=== PATIENT | female | born 1940 | race Caucasian/White ===

== ENCOUNTER 2019-07-10 20:51 | Emergency (ER) | payer MEDICARE, SELFPAY ==
--- NOTE | ~2019-07-10 | XR_ITS ---
EXAMINATION: XR wrist LT min 3V DATE: 07/10/2019 21:16 INDICATION: Left wrist pain and swelling TECHNIQUE: Posteroanterior, ulnar deviation, oblique, and lateral views of the left wrist were obtain ed. 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 No frac ture, dislocation, or subluxation is identified. IMPRESSION: 1. No acute osseous abnormality. Reviewed, dictated and finalized at location A.
[2019-07-10 20:53] VITALS: PULSE 80; RESP 16; TEMP 36.6; O2SAT 98
--- NOTE | 2019-07-10 21:04 | ED.UPPEXIN ---
HPI - Extremity Injury (Upper) General Chief Complaint: Extremity Injury, Upper Stated Complaint: left wrist pain Time Seen by Provider: 07/10/19 20:58 Source: patient Mode of arrival: ambulatory Limitations: no limitations History of Present Illness HPI narrative: Patient is a 79-year-old female who presents to the emergency department with complaint of left wrist pain. Patient reports onset of symptoms yesterday morning when she woke up. Patient denies any specific injury that she can think of. She denies doing any strenuous activities or lifting yesterday. Patient locates the pain over the volar surface of the left wrist at the area of the distal ulna with some mild swelling and faint erythematous appearance she describes as bruising. Patient took some aspirin which did help with her symptoms. She denies any other complaints at this time. complaint: injury to: left and wrist Related Data Allergies Allergy/AdvReac Type Severity Reaction Status Date / Time peanut Allergy Unknown Unverified 07/07/18 19:40 tree nut Allergy Unknown Unverified 07/07/18 19:40 Olives Allergy Mild Uncoded 07/07/18 19:40 Pork Allergy Mild Uncoded 07/07/18 19:40 Review of Systems Review of Systems: All systems reviewed & are unremarkable except as noted in HPI and below Musculoskeletal: Musculoskeletal: Reports arthralgias and Reports joint swelling PMFSH Past Medical History Medical History (Updated 07/10/19 @ 22:24 by Ashley Brown MD) Breast cancer Kidney stones Pneumonia Surgical History Surgical History (Updated 07/10/19 @ 21:06 by Ashley Brown MD) History of mastectomy Left Social History Social History (Updated 07/10/19 @ 21:06 by Ashley Brown MD) Smoking status: Former smoker Gender identity (if verbalized by the patient): Female Exam Const: General: cooperative, no acute distress and alert Nutritional Appearance: well nourished Orientation/consciousness: patient oriented x3 Limitations: no limitations Skin: General skin exam: normal color Neuro: General: patient oriented x3 Cognition (Neuro): normal cognition Speech: normal speech Extrem: General: full ROM and no clubbing, cyanosis or edema Left upper extremity: wrist tenderness of the dorsal wrist (Along flexor tendon medially) and swelling of the dorsal wrist Psych: Mental Status: mental status grossly normal Affect: normal affect Attitude: cooperative Course Course Emergency Course: Patient with findings suggestive of flexor tendinitis of the wrist. Advised to continue to use her wrist splint for support. Will prescribe anti-inflammatory. Advised primary care follow-up Vital Signs Vital signs: Vital Signs Temperature 97.8 F 07/10/19 20:53 Pulse Rate 80 07/10/19 20:53 Respiratory Rate 16 07/10/19 20:53 Pulse Oximetry 98 07/10/19 20:53 Temperature 97.8 F 07/10/19 20:53 Pulse Rate 80 07/10/19 20:53 Respiratory Rate 16 07/10/19 20:53 Pulse Oximetry 98 07/10/19 20:53 MDM - Extremity Injury (Upper) Imaging Data Radiologist's impression: ITS Impressions Wrist X-Ray 07/10/19 21:21 IMPRESSION: 1. No acute osseous abnormality. Critical Care Time Critical Care Time Critical Care Time: No Discharge Plan Discharge Clinical Impression: Left wrist tendinitis Patient Disposition: Home, Self-Care Condition: Stable Instructions: Tendinitis (ED) Additional Instructions: Anti-inflammatory as prescribed. Follow-up with primary care physician in the office for further care if not improving. May use your wrist splint for support if needed. Prescriptions: New diclofenac potassium 50 mg tablet 50 mg PO BID PRN (Reason: pain) Qty: 14 RF: 0 Follow-up/Referrals: PHYSICIAN NOT ON STAFF,NONSTAFF [Primary Care Provider] -
== END 2019-07-10 22:34 | disposition home or self-care (01) ==
PROVIDERS: Emergency Provider Emergency Medicine
DX: M77.9 Enthesopathy, unspecified (principal); Z85.3 Personal history of malignant neoplasm of breast; Z87.442 Personal history of urinary calculi; Z90.12 Acquired absence of left breast and nipple; Z87.891 Personal history of nicotine dependence
CPT/HCPCS: 73110; 99283

== ENCOUNTER 2020-03-09 13:30 | Emergency (ER) | payer MEDICARE, SELFPAY ==
[2020-03-09 13:33] VITALS: BP 138/84; PULSE 84; RESP 14; TEMP 36.4; O2SAT 98
[2020-03-09] MEDS: OXYMETAZOLINE HCL 0.05% NAS 15 ML BTL (*BKC) 1 SPRAY (14:02)
[2020-03-09] MEDS: SILVER NITRATE (*SP) STICK 1 EACH (14:02)
--- NOTE | 2020-03-09 14:41 | ED.EPISTAXIS ---
HPI - Epistaxis General Chief complaint: Epistaxis Stated complaint: nosebleed Time Seen by Provider: 03/09/20 13:35 Source: patient and family Mode of arrival: ambulatory Limitations: no limitations History of Present Illness HPI Narrative: Patient is a 80-year-old female who presents with epistaxis from the left nare that began this morning patient was laughing at the time notes that she has had similar occurrences in the past which typically resolve however the bleeding persisted so she came in for evaluation patient denies pain URI symptoms patient does note she has had some occasional low back pain over the last several days denying injury or trauma or illness but does note history of urinary tract infections patient otherwise in no distress and denies anticoagulant use did take aspirin for the last 2 days given her low back discomfort Related Data Allergies Allergy/AdvReac Type Severity Reaction Status Date / Time tree nut Allergy Unknown Hives Unverified 03/09/20 13:43 Pork Allergy Mild Hives Uncoded 03/09/20 13:43 Review of Systems Review of Systems: All systems reviewed & are unremarkable except as noted in HPI and below PMFSH Past Medical History Medical History Breast cancer Kidney stones Pneumonia Surgical History Surgical History History of mastectomy Left Social History Social History Smoking status: Former smoker Gender identity (if verbalized by the patient): Female Exam Narrative: Exam Narrative: GENERAL: Well-appearing, well-nourished, and in no acute distress. HEAD: Normocephalic, atraumatic. EYES: PERRLA and EOMI. ENT: Nares clear, no rhinorrhea. Epistaxis left nare. Mucous membranes moist. CHEST: Clear to auscultation. No respiratory distress. No wheezes rales or rhonchi HEART: Regular rate and rhythm. No murmur heard. Normal peripheral pulses. SKIN: Warm, dry, no rash. NEURO: No focal deficits. Alert and oriented x3. PSYCH: Normal mood and affect. Course Course Emergency Course: Patient evaluated in the emergency department Rhino Rocket was placed with hemostasis achieved patient will follow with ENT and primary care for further evaluation has been given reasons to return vital signs and ABCs intact and stable. Vital Signs Vital signs: Vital Signs Temperature 97.5 F L 03/09/20 13:33 Pulse Rate 84 03/09/20 13:33 Respiratory Rate 14 03/09/20 13:33 Blood Pressure 138/84 03/09/20 13:33 Pulse Oximetry 98 03/09/20 13:33 Temperature 97.5 F L 03/09/20 13:33 Pulse Rate 84 03/09/20 13:33 Respiratory Rate 14 03/09/20 13:33 Blood Pressure 138/84 03/09/20 13:33 Pulse Oximetry 98 03/09/20 13:33 MDM - Epistaxis MDM Narrative Medical decision making narrative: Patient with epistaxis no distress felt appropriate for discharge home will follow with primary care for further evaluation as well as ENT Lab Data Labs: Lab Results 03/09/20 Range/Units 14:34 Urine Color Yellow (Yellow) Urine Appearance Clear (Clear) Urine pH 5.0 (5.0-9.0) Ur Specific [place] 1.017 (1.001-1.035) Urine Protein 2+ H (Negative) mg/dL Urine Glucose (UA) Negative (Negative) mg/dL Urine Ketones Negative (Negative) mg/dL Ur Blood (Man) Negative (Negative) Urine Nitrate Negative (Negative) Urine Bilirubin Negative (Negative) Urine Urobilinogen Negative (<2.0) mg/dL Leukocyte Esterase Rfl 1+ H (Negative) DEE/UL Urine RBC 0-2 (0-2) /hpf Urine WBC 4-6 H /hpf Ur Squamous Epith Cells Occasional (Few) /hpf Hyaline Casts 3-4 H (None) /lpf Discharge Plan Discharge Clinical Impression: Epistaxis Patient Disposition: Home, Self-Care Condition: Stable Instructions: Antibiotic Form, Nosebleed (ED) Additional Instructions: Follow up with your prima
[2020-03-09 14:47] LABS: Add Urine Microscopic? YES; Appearance Urine Clear (Clear); Bilirubin Urine Negative (Negative); Blood Urine Negative (Negative); Color Urine Yellow (Yellow); Glucose Urine UA Negative (Negative); Ketones Urine Negative (Negative); Leukocyte Esterase Ur 1+ LEU/UL (Negative); Nitrate Urine Negative (Negative); Protein Urine 2+ mg/dL (Negative); RBC Urine 0-2 /hpf (0-2); Specific Grav Ur 1.017 (1.001-1.035); Squamous Epithelial Cell Urine Occasional /hpf (Few); Urobilinogen Urine Negative mg/dL (<2.0)
[2020-03-09 15:19] VITALS: BP 132/76; PULSE 80; RESP 18; O2SAT 98
== END 2020-03-09 15:20 | disposition home or self-care (01) ==
PROVIDERS: Emergency Medicine Emergency Medical Services; Emergency Provider Emergency Medicine; PCP Pediatrics
DX: R04.0 Epistaxis (principal); Z85.3 Personal history of malignant neoplasm of breast; Z87.442 Personal history of urinary calculi; Z90.12 Acquired absence of left breast and nipple; Z87.891 Personal history of nicotine dependence; R82.998 Other abnormal findings in urine
CPT/HCPCS: 30901; 81001; 87086; 87088; 99283; A9270

== ENCOUNTER 2021-03-25 11:16 | Emergency (ER) | payer MEDICARE, SELFPAY ==
[2021-03-25] VITALS (8 sets, daily range): BP systolic 157; BP diastolic 84; PULSE 81–97; RESP 14–23; O2SAT 86–95
--- NOTE | ~2021-03-25 | CT_ITS ---
EXAMINATION: CT abdomen pelvis w con DATE: 03/25/2021 12:35 INDICATION: Bowel obstruction TECHNIQUE: Computed tomography (CT) of the abdomen and pelvis was performed with 100 mL Omnipaque-350 intravenous contrast. Automated exposure control and iterative reconstruction technique were employe d. The dose-length product was 430.99 mGy-cm. COMPARISON: 07/07/2018 FINDINGS: Postoperative change of prior left mastectomy with left breast implant. Mild dependent atelectasis in the bilateral lower lobes. Heart size is normal. No pericardial or pleural effusion. Small sliding-t ype hiatal hernia. Liver, gallbladder, spleen, pancreas and bilateral adrenal glands are normal. Bila teral nonobstructing nephrolithiasis with 4 1-2 mm stones in the left kidney and 6 stones in the righ t kidney the largest measuring 5 mm. Small bowel and appendix are normal. No obstruction. There is wa ll thickening along the sigmoid colon and rectum with mild stranding in the adjacent sigmoid mesenter y consistent with a distal colitis. Moderate amount of colonic stool which could be seen with constip ation. A few sigmoid diverticula without focal surrounding inflammatory stranding to suggest divertic ulitis. No significant interval change in a couple mildly prominent but still normal-sized likely conrad ctive lymph nodes along the sigmoid mesentery. Small amount of ascites in the pelvis. Bladder, retrov erted uterus and left adnexa are unremarkable. No significant change in a 2.1 cm right adnexal cyst. Mild lumbar dextrocurvature. Severe lower thoracic and moderate lumbar spondylosis. IMPRESSION: 1. Wall thickening along the sigmoid colon and rectum consistent with the distal colitis which could be infectious, inflammatory or ischemic in etiology or potentially related to constipation and sterco ral colitis. No bowel obstruction. 2. Bilateral nonobstructing nephrolithiasis. 3. Small sliding-type hiatal hernia. Reviewed, dictated and finalized at location A. RESSER IMPRESSION: 1. Wall thickening along the sigmoid colon and rectum consistent with the dista l colitis which could be infectious, inflammatory or ischemic in etiology or po tentially related to constipation and stercoral colitis. No bowel obstruction. 2. Bilateral nonobstructing nephrolithiasis. 3. Small sliding-type hiatal hernia.
--- NOTE | 2021-03-25 11:50 | ED.GENADULT ---
HPI - General Adult General Chief complaint: Abdominal Pain <Carlos Alberto Valdez PA-C - Last Filed: 03/25/21 16:03> Stated complaint: Constipation <Carlos Alberto Valdez PA-C - Last Filed: 03/25/21 16:03> Time Seen by Provider: 03/25/21 11:25 <Carlos Alberot Valdez PA-C - Last Filed: 03/25/21 16:03> Source: patient <ANA Haji Last Filed: 03/25/21 16:03> Mode of arrival: ambulatory <ANA Haji Last Filed: 03/25/21 16:03> Limitations: no limitations <ANA Haji Last Filed: 03/25/21 16:03> History of Present Illness HPI narrative: Patient is a 81-year-old female presented with chief complaint of abdominal discomfort and constipation since Monday. Patient reports she is taking [id number] stool softeners and has only passed small bits of stool. Patient reports she has been able to pass gas. Patient reports this morning she had 3 episodes of vomiting. Along with more persistent abdominal cramping. Patient reports that she has passed very small bits of stool but has not completely emptied. She reports she has chronic intermittent constipation. She states her stool is soft and not hard or feeling stuck in her rectum. She denies fevers, chills, or weakness. <ANA Haji Last Filed: 03/25/21 16:03> Related Data Home medications: Home Medications Medication Instructions Recorded Confirmed atorvastatin 10 mg PO DAILY 03/25/21 metformin 500 mg PO BID 03/25/21 triamterene-hydrochlorothiazid 1 cap PO DAILY 03/25/21 <ANA Haji Last Filed: 03/25/21 16:03> Allergies/adverse reactions: Allergies Allergy/AdvReac Type Severity Reaction Status Date / Time tree nut Allergy Unknown Hives Verified 03/25/21 11:27 Pork Allergy Mild Hives Uncoded 03/09/20 13:43 <ANA Haji Last Filed: 03/25/21 16:03> Review of Systems Review of Systems: CONSTITUTIONAL: Denies fever, chills, or sweats. EYES: Denies visual changes, redness, or discharge. ENT: Denies rhinorrhea, congestion, sore throat, or otalgia. CARDIOVASCULAR: Denies chest pain, palpitations, or edema. RESPIRATORY: Denies cough or dyspnea. GASTROINTESTINAL: Reports abdominal pain, nausea, vomiting, and constipation. GENITOURINARY: Denies dysuria or hematuria. SKIN: Denies rash or itching. MUSCULOSKELETAL: Denies back pain, joint pain, or myalgia. NEUROLOGIC: Denies headache, numbness, dizziness, or weakness. PSYCHIATRIC: Denies anxiety or depression. <Carlos Alberto Valdez PA-C - Last Filed: 03/25/21 16:03> [facility] Past Medical History Medical History: Medical History Breast cancer Kidney stones Pneumonia <Carlos Alberto Valdez PA-C - Last Filed: 03/25/21 16:03> Surgical History Surgical History: Surgical History History of mastectomy Left <Carlos Alberto Valdez PA-C - Last Filed: 03/25/21 16:03> Social History Social History: Social History Smoking status: Former smoker Gender identity (if verbalized by the patient): Female <Carlos Alberto Valdez PA-C - Last Filed: 03/25/21 16:03> Exam Narrative: GENERAL: Well-appearing, well-nourished, and in no acute distress. HEAD: Normocephalic, atraumatic. EYES: PERRLA and EOMI. CHEST: Clear to auscultation. No respiratory distress. No wheezes rales or rhonchi HEART: Regular rate and rhythm. No murmur heard. Normal peripheral pulses. ABDOMEN: Soft, diffusely tender, nondistended, normal active bowel sounds. EXTREMITIES: Normal range of motion. No edema. SKIN: Warm, dry, no rash. NEURO: No focal deficits. Alert and oriented x3. PSYCH: Normal mood and affect. 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 I was available for evaluation
[2021-03-25 11:52] LABS: Basophils Percent Auto 0.3 % (0.2-1.2); Eosinophils Percent Auto 0.2 % (0-4.4); Hematocrit 40.7 % (37.0-47.0); Hemoglobin 14.4 g/dL (12.0-15.0); Immature Granulocyte Absolute 0.08 K/mm3 (0.00-0.031); Immature Granulocyte Percent A 0.5 % (0-0.5); Lymphocytes Absolute Auto 2.45 K/mm3 (0.9-3.2); Lymphocytes Percent Auto 15.4 % (18.3-44.2); Mean Corpuscular HGB Conc 35.4 g/dl (32-36); Mean Corpuscular Hemoglobin 30.6 pg (26-34); Mean Corpuscular Volume 86.6 fl (80-100); Mean Platelet Volume 10.2 fl (7.4-10.4); Monocytes Absolute Auto 0.8 K/mm3 (0.1-0.6); Neutrophils Absolute Auto 12.5 K/mm3 (1.3-6.7); Neutrophils Percent Auto 78.6 % (45.5-73.1); Platelet Count Result 318 k/mm3 (150-375); Red Cell Distribution Width 12.4 % (11.5-14.5); White Blood Count 15.9 K/mm3 (4.5-10.0)
[2021-03-25 12:04] LABS: Alanine Aminotransferase 20 U/L (4-35); Albumin Level 4.6 g/dL (3.5-5.1); Alkaline Phosphatase 118 U/L (38-126); Anion Gap 9 mmol/L (8-16); Aspartate Amino Transferase 30 U/L (14-36); Bilirubin,Total 0.7 mg/dL (0.2-1.3); Blood Urea Nitrogen 15 mg/dL (7-17); Calcium 9.6 mg/dL (8.4-10.2); Carbon Dioxide 25 mmol/L (22-30); Chloride 102 mmol/L (98-107); Estimated CRCL calculation 46 ml/min; Estimated Glomerular Filt Rate > 60; Glucose 180 mg/dL (65-110); Lipase 47 U/L (23-300); Potassium 3.3 mmol/L (3.4-5.0); Sodium 136 mmol/L (137-145)
[2021-03-25] MEDS: MORPHINE SULFATE (*CRX) 2 MG/ML INJ IV PUSH (12:07)
[2021-03-25] MEDS: ONDANSETRON INJ 4 MG/2 ML VIAL IV PUSH (12:07)
[2021-03-25 12:56] LABS: Add Urine Microscopic? YES; Appearance Urine Clear (Clear); Bacteria Urine Trace /hpf; Bilirubin Urine Negative (Negative); Blood Urine 2+ (Negative); Color Urine Yellow (Yellow); Glucose Urine UA Negative (Negative); Ketones Urine Trace mg/dL (Negative); Leukocyte Esterase Ur Negative LEU/UL (Negative); Mucus Urine Rare /lpf; Nitrate Urine Negative (Negative); Protein Urine 3+ mg/dL (Negative); RBC Urine 51-75 /hpf (0-2); Specific Grav Ur 1.018 (1.001-1.035); Squamous Epithelial Cell Urine Rare /hpf (Few); Urobilinogen Urine Negative mg/dL (<2.0); WBC Urine 0-3 /hpf
== END 2021-03-25 15:15 | disposition home or self-care (01) ==
PROVIDERS: Physician Assistant; Emergency Provider Emergency Medicine
DX: K52.9 Noninfective gastroenteritis and colitis, unspecified (principal); K59.00 Constipation, unspecified; Z85.3 Personal history of malignant neoplasm of breast; Z87.442 Personal history of urinary calculi; Z87.01 Personal history of pneumonia (recurrent)
CPT/HCPCS: 36415; 74177; 80053; 81001; 83690; 85025; 96374; 96375; 99284; J2270; J2405; Q9967

== ENCOUNTER 2021-12-20 17:38 | Emergency (ER) | payer MEDICARE, SELFPAY ==
[2021-12-20 17:56] VITALS: BP 150/76; PULSE 97; RESP 18; TEMP 36.8; O2SAT 98
--- NOTE | 2021-12-20 19:04 | PC.NURSE ---
came to desk to report took home dose of pain meds
--- NOTE | 2021-12-20 20:03 | PC.NURSE ---
Came to nurse's desk to announce leaving and will call her doctor
== END 2021-12-20 20:19 | disposition left against medical advice (07) ==
DX: H53.2 Diplopia (principal)
CPT/HCPCS: 99199

== ENCOUNTER 2022-09-19 21:45 | Emergency (ER) | payer MEDICARE, SELFPAY ==
--- NOTE | ~2022-09-19 | XR_ITS ---
Right wrist Technique: PA and lateral views were obtained. Clinical History: Pain Findings: No acute fracture or dislocation is seen. There is mild degenerative change of the STT josselyn culations. Soft tissues are unremarkable. Impression: No fracture or dislocation seen. Mild degenerative change of the STT articulations. Reviewed, dictated and finalized at location . Impression: No fracture or dislocation seen. Mild degenerative change of the STT articulations.
[2022-09-19 21:49] VITALS: BP 165/69; PULSE 81; RESP 14; TEMP 36.9; O2SAT 97
--- NOTE | 2022-09-20 01:02 | ED.GENADULT ---
[facility] - General Adult General Chief complaint: Extremity Injury, Upper Stated complaint: all kinds of aches and pains, hand swelling Time Seen by Provider: 09/20/22 00:32 Source: patient Mode of arrival: ambulatory Limitations: no limitations History of Present Illness HPI narrative: This is an 82-year-old female who presents to the ED with chief complaint of full body pain for the past month. She states she woke up one morning and had pain from head to toe. Denies any injuries. She has been trying to follow-up with her primary on this and they are concerned for fibromyalgia. She states the pain became worse in the right wrist today. She is concerned for blood clot. Denies fevers, chills, numbness, weakness. Related Data Home Medications Medication Instructions Recorded Confirmed atorvastatin 10 mg tablet 10 mg PO DAILY 03/25/21 metformin 500 mg tablet 500 mg PO BID 03/25/21 triamterene 37.5 1 cap PO DAILY 03/25/21 mg-hydrochlorothiazide 25 mg capsule Allergies Allergy/AdvReac Type Severity Reaction Status Date / Time tree nut Allergy Unknown Hives Verified 09/19/22 22:45 Pork Allergy Mild Hives Uncoded 03/09/20 13:43 Review of Systems Review of Systems: All systems as dictated in [facility] Past Medical History Medical History Breast cancer Kidney stones Pneumonia Surgical History Surgical History History of mastectomy Left Social History Social History Smoking status: Former smoker Gender identity (if verbalized by the patient): Female Exam Narrative: GENERAL: Well-appearing, well-nourished, and in no acute distress. HEAD: Normocephalic, atraumatic. EYES: PERRLA and EOMI. ENT: Nares clear, no rhinorrhea or epistaxis. Mucous membranes moist. Oropharynx without tonsillar hypertrophy exudate or other lesions. NECK: Supple. No adenopathy or masses. CHEST: No respiratory distress. Clear to auscultation. No wheezes rales or rhonchi HEART: Regular rate and rhythm. No murmur heard. Normal peripheral pulses. ABDOMEN: Soft, nontender, nondistended, normal active bowel sounds. MSK: Generalized tenderness throughout all extremities. No bruising or deformity. The right upper extremity does not exhibit any edema or swelling. No dilated veins. Moderately increased tenderness at the right wrist. SKIN: Warm, dry, no rash. NEURO: Alert and oriented x3. No focal deficits. PSYCH: Normal mood and affect. Course Vital Signs Vital signs: Vital Signs Temperature 98.4 F 09/19/22 21:49 Pulse Rate 81 09/19/22 21:49 Respiratory Rate 14 09/19/22 21:49 Blood Pressure 165/69 H 09/19/22 21:49 Pulse Oximetry 97 09/19/22 21:49 Oxygen Delivery Room Air 09/19/22 21:49 Temperature 98.1 F 09/20/22 01:55 Pulse Rate 73 09/20/22 01:55 Respiratory Rate 15 09/20/22 01:55 Blood Pressure 138/65 09/20/22 01:55 Pulse Oximetry 95 09/20/22 01:55 Oxygen Delivery Room Air 09/19/22 21:49 Medical Decision Making [facility] Narrative Medical decision making narrative: This is an 82-year-old female who presents to the ED with chief complaint of full body pain for the past month. Pain seems to be worse in the right wrist today and she is. Vitals are normal. Exam is benign. I have very little concern for any blood clot of the upper extremity. Right wrist x-ray does show degeneration but no other acute osseous findings. Blood work is unremarkable. CK normal. She will be discharged stable condition. Medrol Dosepak for inflammation given. She understands and is agreeable with plan for discharge and follow-up with her PCP. Return precautions given and supportive measures discussed. Vital Signs Vital Signs: Vital Signs Temperature 98.4 F 09/19/22 21:49 Pulse Rate 81 09/19/22 21:49 Respiratory Rate
[2022-09-20 01:17] LABS: Basophils Percent Auto 0.3 % (0.2-1.2); Eosinophils Absolute Auto 0.2 K/mm3 (0-0.3); Eosinophils Percent Auto 1.6 % (0-4.4); Hematocrit 35.6 % (37.0-47.0); Hemoglobin 11.9 g/dL (12.0-15.0); Immature Granulocyte Absolute 0.02 K/mm3 (0.00-0.031); Immature Granulocyte Percent A 0.2 % (0-0.5); Lymphocytes Absolute Auto 3.46 K/mm3 (0.9-3.2); Lymphocytes Percent Auto 34.3 % (18.3-44.2); Mean Corpuscular HGB Conc 33.4 g/dl (32-36); Mean Corpuscular Hemoglobin 30.1 pg (26-34); Mean Corpuscular Volume 90.1 fl (80-100); Mean Platelet Volume 9.6 fl (7.4-10.4); Monocytes Absolute Auto 0.7 K/mm3 (0.1-0.6); Monocytes Percent Auto 7.3 % (2.6-8.5); Neutrophils Absolute Auto 5.7 K/mm3 (1.3-6.7); Neutrophils Percent Auto 56.3 % (45.5-73.1); Platelet Count Result 269 k/mm3 (150-375); Red Blood Count 3.95 M/mm3 (4.2-5.4); White Blood Count 10.1 K/mm3 (4.5-10.0)
[2022-09-20] MEDS: predniSONE 20 MG TABLET 40 MG PO (01:25)
[2022-09-20 01:28] LABS: Alanine Aminotransferase 21 U/L (6-35); Albumin Level 3.8 g/dL (3.5-5.1); Alkaline Phosphatase 97 U/L (38-126); Anion Gap 2 mmol/L (8-16); Aspartate Amino Transferase 30 U/L (14-36); Bilirubin,Total 0.3 mg/dL (0.2-1.3); Blood Urea Nitrogen 18 mg/dL (7-17); Calcium 9.1 mg/dL (8.4-10.2); Carbon Dioxide 30 mmol/L (22-30); Chloride 101 mmol/L (98-107); Creatine Kinase 50 U/L (30-135); Estimated CRCL calculation 62 ml/min; Estimated Glomerular Filt Rate > 60; Glucose 113 mg/dL (65-110); Potassium 3.6 mmol/L (3.4-5.0); Sodium 133 mmol/L (137-145)
[2022-09-20 01:55] VITALS: BP 138/65; PULSE 73; RESP 15; TEMP 36.7; O2SAT 95
== END 2022-09-20 01:56 | disposition home or self-care (01) ==
PROVIDERS: Emergency Provider Physician Assistant; PCP Internal Medicine
DX: M25.531 Pain in right wrist (principal); M79.10 Myalgia, unspecified site; Z85.3 Personal history of malignant neoplasm of breast; Z87.01 Personal history of pneumonia (recurrent); Z87.442 Personal history of urinary calculi; Z87.891 Personal history of nicotine dependence; Z90.12 Acquired absence of left breast and nipple; Z79.84 Long term (current) use of oral hypoglycemic drugs
CPT/HCPCS: 36415; 73100; 80053; 82550; 85025; 99283; J7512

== ENCOUNTER 2022-09-26 14:27 | Outpatient (CLI) | payer MEDICARE, SELFPAY ==
--- NOTE | ~2022-09-26 | XR_ITS ---
EXAM: XR_CERV2-3V_CR DATE: 09/26/2022 15:18 HISTORY: FIBROMYOSITIS- PAIN FROM NECK TO FOOT X5WKS NO INJURY . COMPARISON: None available. FINDINGS: Craniocervical association and atlantoaxial joint are aligned. Moderate degenerative espinoza e at the atlantoaxial joint. No prevertebral soft tissue swelling. 2 mm anterolistheses at C3-4, C6-C 7, and C7-T1. Vertebral body heights are maintained. Normal disc spaces. Mild disc space narrowing at C4-5 through C6-7. Moderate multilevel facet sclerosis and hypertrophy IMPRESSION: Multilevel mild grade 1 anterolistheses. Multilevel mild degenerative disc disease. Multi level mild-moderate facet arthropathy. Reviewed, dictated and finalized at location K. IMPRESSION: Multilevel mild grade 1 anterolistheses. Multilevel mild degenerati ve disc disease. Multilevel mild-moderate facet arthropathy.
--- NOTE | ~2022-09-26 | XR_ITS ---
EXAM: XR shoulder RT min 2V, XR shoulder LT min 2V DATE: 09/26/2022 15:18 (accession [id number]), 09/26/2022 15:19 (accession [id number]) HISTORY: FIBROMYOSITIS- PAIN FROM NECK TO [id number] NO INJURY . COMPARISON: None available. FINDINGS: Decreased mineralization. No fracture or dislocation. No lytic or blastic lesion. Mild bere ateral AC joint and glenohumeral joint degenerative change. No erosion or periosteal change. Soft tis sues within normal limits. 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 Reviewed, dictated and finalized at location K. 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
[2022-09-26 15:54] LABS: Erythrocyte Sedimentation Rate 67 mm/hr (0-20)
[2022-09-26 17:27] LABS: CRP 1.6 mg/dL (<1.0); Rheumatoid Factor < 12.0 IU/ML (<12)
== END 2022-09-26 14:28 | disposition home or self-care (01) ==
PROVIDERS: PCP Internal Medicine; Visit Provider Internal Medicine
DX: M79.7 Fibromyalgia (principal); M43.12 Spondylolisthesis, cervical region; M50.30 Other cervical disc degeneration, unspecified cervical region; M47.812 Spondylosis without myelopathy or radiculopathy, cervical region; M19.012 Primary osteoarthritis, left shoulder; M19.011 Primary osteoarthritis, right shoulder
CPT/HCPCS: 36415; 72040; 73030; 85652; 86038; 86140; 86430

== ENCOUNTER 2023-08-04 02:26 | Emergency (ER) | payer MEDICARE, SELFPAY ==
[2023-08-04] VITALS (8 sets, daily range): BP systolic 127–172; BP diastolic 58–81; PULSE 59–74; RESP 14–18; TEMP 36.4; O2SAT 95–98
--- NOTE | ~2023-08-04 | XR_ITS ---
Portable chest x-ray Comparison: 03/15/2015 Clinical History: Shortness of breath Findings: Lungs are clear, without focal consolidation or pleural effusion. Cardiomediastinal silho uette is stable. Bones and soft tissues are unremarkable. Impression: Normal chest. Reviewed, dictated and finalized at location . Impression: Normal chest.
--- NOTE | 2023-08-04 02:29 | ECG_ITS ---
Test Date: 2023-08-04 02:35:26 Measurements Intervals [place] Rate: 68 P: -32 PA: 115 QRS: -18 QRSD: 85 T: -12 QT: 395 QTc: 421 Interpretive Statements SINUS RHYTHM WITH SHORT PA INTERVAL VOLTAGE CRITERIA FOR LVH [MEETS CRITERIA IN ONE OF: R(aVL), S(V1), R(V5), R(V5/V6)+S(V1)] BORDERLINE ECG No previous ECG available for comparison Electronically Signed On 08-04-2023 07:17:48 CDT by Darrius Cordero M.D.
[2023-08-04 02:40] LABS: Basophils Absolute Auto 0.1 K/mm3 (0.0-0.1); Basophils Percent Auto 0.5 % (0.2-1.2); Eosinophils Absolute Auto 0.2 K/mm3 (0-0.3); Eosinophils Percent Auto 1.7 % (0-4.4); Hematocrit 39.2 % (37.0-47.0); Hemoglobin 13.6 g/dL (12.0-15.0); Immature Granulocyte Absolute 0.01 K/mm3 (0.00-0.031); Immature Granulocyte Percent A 0.1 % (0-0.5); Lymphocytes Absolute Auto 4.55 K/mm3 (0.9-3.2); Lymphocytes Percent Auto 45.3 % (18.3-44.2); Mean Corpuscular HGB Conc 34.7 g/dl (32-36); Mean Corpuscular Hemoglobin 30.5 pg (26-34); Mean Corpuscular Volume 87.9 fl (80-100); Mean Platelet Volume 9.9 fl (7.4-10.4); Monocytes Absolute Auto 0.8 K/mm3 (0.1-0.6); Monocytes Percent Auto 7.9 % (2.6-8.5); Neutrophils Absolute Auto 4.5 K/mm3 (1.3-6.7); Neutrophils Percent Auto 44.5 % (45.5-73.1); Platelet Count Result 275 k/mm3 (150-375); Red Blood Count 4.46 M/mm3 (4.2-5.4); Red Cell Distribution Width 12.8 % (11.5-14.5); White Blood Count 10.1 K/mm3 (4.5-10.0)
[2023-08-04 02:54] LABS: Alanine Aminotransferase 15 U/L (6-35); Albumin Level 4.5 g/dL (3.5-5.1); Alkaline Phosphatase 89 U/L (38-126); Anion Gap 9 mmol/L (4-12); Aspartate Amino Transferase 26 U/L (14-36); Bilirubin,Total 0.5 mg/dL (0.2-1.3); Blood Urea Nitrogen 23 mg/dL (7-17); Calcium 9.2 mg/dL (8.4-10.2); Carbon Dioxide 27 mmol/L (22-30); Chloride 103 mmol/L (98-107); Estimated CRCL calculation 56 ml/min; Estimated Glomerular Filt Rate > 60; Glucose 106 mg/dL (65-110); Potassium 3.6 mmol/L (3.4-5.0); Sodium 139 mmol/L (137-145)
[2023-08-04 03:04] LABS: Troponin I < 0.012 ng/mL (0.000-0.034)
--- NOTE | 2023-08-04 04:26 | ED.GENADULT ---
HPI - General Adult General Chief complaint: Shortness of Breath/Dyspnea Stated complaint: SHORTNESS OF BREATH Time Seen by Provider: 08/04/23 03:53 History of Present Illness HPI narrative: Patient is a 83-year-old female who presents to the emergency department this evening complaining of some chest pressure and shortness of breath. Patient states that she has been having the symptoms all day yesterday but states that when she tried to lay down and go to bed she felt as though she could not catch her breath. Has been who was present at bedside states the patient has been undergoing a lot of stress in the past week dealing with very difficult client and has been under a lot of stress secondary to this. Patient admits to family history of cardiovascular disease but denies any history of heart attacks. She also denies any history of COPD or asthma. No additional symptoms or concerns at this time. Related Data Home Medications Medication Instructions Recorded Confirmed atorvastatin 10 mg tablet 10 mg PO DAILY 03/25/21 metformin 500 mg tablet 500 mg PO BID 03/25/21 triamterene 37.5 1 cap PO DAILY 03/25/21 mg-hydrochlorothiazide 25 mg capsule Allergies Allergy/AdvReac Type Severity Reaction Status Date / Time tree nut Allergy Unknown Hives Verified 09/19/22 22:45 Pork Allergy Mild Hives Uncoded 03/09/20 13:43 Review of Systems Review of Systems: All systems are reviewed and are negative unless stated otherwise in the HPI. [facility] Past Medical History Medical History Breast cancer Kidney stones Pneumonia Surgical History Surgical History History of mastectomy Left Social History Social History Smoking status: Former smoker Gender identity (if verbalized by the patient): Female Exam Narrative: General: Alert, awake, afebrile, anxious. HEENT: PERRL, no rhinorrhea, no post nasal drip, oropharynx clear. Cardiovascular: Regular rate and rhythm, no murmurs, rubs or gallops, no peripheral edema. Respiratory: Clear to auscultation bilaterally, no tachypnea, no wheezing, no rhonchi, no rubs, no respiratory distress. Abdomen: Soft, nontender, nondistended, no rebound, no guarding, no peritoneal signs. Musculoskeletal: No joint swelling or deformity, normal muscle tone. Skin: No rashes or petechia, no signs of infection. Neurological: Alert and oriented to person, place, and time. Follows all commands. No focal deficits, speech is clear and fluent. Course Vital Signs Vital signs: Vital Signs Temperature 97.6 F 08/04/23 02:31 Pulse Rate 74 08/04/23 02:31 Respiratory Rate 16 08/04/23 02:31 Blood Pressure 172/81 H 08/04/23 02:31 Pulse Oximetry 95 08/04/23 02:31 Oxygen Delivery Room Air 08/04/23 02:31 Temperature 97.6 F 08/04/23 02:31 Pulse Rate 61 08/04/23 04:16 Respiratory Rate 15 08/04/23 04:16 Blood Pressure 127/58 L 08/04/23 04:16 Pulse Oximetry 95 08/04/23 04:16 Oxygen Delivery Room Air 08/04/23 02:36 Medical Decision Making MDM Narrative Medical decision making narrative: The patient was evaluated by myself in the emergency department. History is obtained from patient who is an independent historian and physical exam was performed. External medical records were reviewed at this time. IV was established and pertinent tests were ordered. EKG was obtained which revealed sinus rhythm at a rate of 68 beats per minute. No ST changes, T wave inversions or evidence of acute ischemia. EKG was independently interpreted by me and is currently pending official cardiology read. Laboratory results obtained revealing no acute process. Two sets of troponins were obtained both noted to be negative. Imaging studies obtained included CXR which was independently interpreted by me revealing no
[2023-08-04 05:03] LABS: Magnesium 2.1 mg/dL (1.6-2.3)
--- NOTE | 2023-08-04 05:04 | PC.NURSE ---
ambulatory with steady gait to restroom.
--- NOTE | 2023-08-04 05:05 | PC.NURSE ---
wan ua collection per dr manuela garcía
--- NOTE | 2023-08-04 05:47 | ECG_ITS ---
Test Date: 2023-08-04 05:53:32 Measurements Intervals [place] Rate: 57 P: -34 MO: 127 QRS: -8 QRSD: 102 T: -6 QT: 451 QTc: 442 Interpretive Statements SINUS BRADYCARDIA MODERATE VOLTAGE CRITERIA FOR LVH, CONSIDER NORMAL VARIANT [MEETS CRITERIA IN ONE OF: R(aVL), S(V1), R(V5), R(V5/V6)+S(V1)] BORDERLINE ECG Compared to ECG 08/04/2023 02:35:26 NO DIFFERENCE Electronically Signed On 08-04-2023 07:20:11 CDT by Darrius Cordero M.D.
[2023-08-04 06:10] LABS: Appearance Urine Clear (Clear); Bacteria Urine None Seen /hpf; Bilirubin Urine Negative (Negative); Blood Urine Negative (Negative); Color Urine Yellow (Yellow); Glucose Urine UA Negative (Negative); Ketones Urine Negative (Negative); Leukocyte Esterase Ur Trace LEU/UL (Negative); Nitrate Urine Negative (Negative); Non Pathogenic Casts 0-2; Protein Urine Negative (Negative); RBC Urine 0-2 /hpf (0-2); Specific Grav Ur 1.008 (1.001-1.035); Squamous Epithelial Cell Urine None Seen /hpf (Few); Urobilinogen Urine 0.2 mg/dL (<2.0); WBC Urine 0-5 /hpf (0-3); pH Urine 6.5 (5.0-9.0)
[2023-08-04 06:13] LABS: Add Urine Microscopic? YES
[2023-08-04 06:21] LABS: Troponin I < 0.012 ng/mL (0.000-0.034)
== END 2023-08-04 06:51 | disposition home or self-care (01) ==
PROVIDERS: Emergency Provider Emergency Medicine; PCP Internal Medicine
DX: R07.89 Other chest pain (principal); R06.02 Shortness of breath; E11.9 Type 2 diabetes mellitus without complications; Z85.3 Personal history of malignant neoplasm of breast; Z87.01 Personal history of pneumonia (recurrent); Z87.442 Personal history of urinary calculi; Z90.12 Acquired absence of left breast and nipple; Z87.891 Personal history of nicotine dependence; Z79.84 Long term (current) use of oral hypoglycemic drugs; Z79.899 Other long term (current) drug therapy; R00.1 Bradycardia, unspecified
CPT/HCPCS: 36415; 71045; 80053; 81001; 83735; 84484; 85025; 93005; 99284

== ENCOUNTER 2024-10-15 16:26 | Emergency (ER) | payer MEDICARE, SELFPAY ==
--- NOTE | ~2024-10-15 | CT_ITS ---
EXAMINATION: CT abdomen pelvis w con DATE: 10/15/2024 18:06 INDICATION: Right lower quadrant abdominal pain TECHNIQUE: Computed tomography (CT) of the abdomen and pelvis was performed with 100 mL Omnipaque-350 intravenous contrast. Automated exposure control and iterative reconstruction technique were employed. The dose-length product was 300.28 mGy-cm. COMPARISON: 03/25/2021 FINDINGS: Mild dependent atelectasis in bilateral lower lobes. Unchanged 5 mm nodule at the lateral basilar right lower lobe. Heart size is normal. Atherosclerotic coronary artery calcific location. No pericardial or pleural effusion. Small amount of fluid within a small sliding-type hiatal hernia. Left breast implant. Liver, gallbladder, spleen, pancreas and bilateral adrenal glands are normal. Bilateral nonobstructing nephrolithiasis with a 6 stones measuring up to 2 mm in the left kidney and 6 stones in the right kidney measuring up to 6 mm. Bladder, retroverted uterus and left adnexa are unremarkable. Chronic 2.5 cm right adnexal cyst. Bowels are normal with no abnormal wall thickening or obstruction. The appendix is not visualized. No pericecal inflammatory change to suggest acute appendicitis. No free intraperitoneal gas or fluid. No pathologically enlarged abdominal or pelvic lymphadenopathy.. Thoracolumbar dextrocurvature with severe spondylosis. IMPRESSION: 1. Bilateral nonobstructing nephrolithiasis. 2. Small sliding-type hiatal hernia. Reviewed, dictated and finalized at location A.
[2024-10-15 16:41] VITALS: BP 142/81; PULSE 86; RESP 18; TEMP 36.6; O2SAT 94
[2024-10-15 16:53] LABS: Hematocrit 39.0 % (37.0-47.0); Hemoglobin 13.2 g/dL (12.0-15.0); Immature Granulocyte Percent A 0.2 % (0-0.5); Lymphocytes Absolute Auto 3.36 K/mm3 (0.9-3.2); Mean Corpuscular HGB Conc 33.8 g/dl (32-36); Mean Corpuscular Hemoglobin 30.0 pg (26-34); Mean Corpuscular Volume 88.6 fl (80-100); Nucleated Red Blood Cells Absolute Auto 0.000 K/mm3 (0.0-0.012); Nucleated Red Blood Cells Perc 0.0 % (0.0-0.2); Platelet Count Result 264 k/mm3 (150-375); Red Blood Count 4.40 M/mm3 (4.2-5.4); White Blood Count 9.1 K/mm3 (4.5-10.0)
[2024-10-15 17:07] LABS: Alanine Aminotransferase 22 U/L (6-35); Albumin Level 4.3 g/dL (3.5-5.1); Alkaline Phosphatase 71 U/L (38-126); Anion Gap 9 mmol/L (4-12); Aspartate Amino Transferase 35 U/L (14-36); Bilirubin,Total 0.2 mg/dL (0.2-1.3); Blood Urea Nitrogen 21 mg/dL (7-17); Calcium 9.6 mg/dL (8.4-10.2); Carbon Dioxide 25 mmol/L (22-30); Chloride 105 mmol/L (98-107); Estimated CRCL calculation 51 ml/min; Estimated Glomerular Filt Rate > 60; Glucose 144 mg/dL (65-110); Lipase 87 U/L (23-300); Potassium 4.1 mmol/L (3.4-5.0); Sodium 139 mmol/L (137-145); Total Protein 7.6 g/dL (6.3-8.2)
[2024-10-15 17:09] LABS: Add Urine Microscopic? YES; Appearance Urine Clear (Clear); Glucose Urine UA Negative (Negative); Leukocyte Esterase Ur Trace LEU/UL (Negative); Nitrate Urine Negative (Negative); Non Pathogenic Casts 0-2; Specific Grav Ur 1.020 (1.001-1.035)
--- NOTE | 2024-10-15 17:20 | ED.ABDPAIN ---
HPI - Abdominal Pain General Chief Complaint: Abdominal Pain Stated Complaint: right flank pain Time Seen by Provider: 10/15/24 17:01 History of Present Illness HPI narrative: Patient is an 84-year-old female who presents to the ER with right lower quadrant pain started approximately 1-1/2 hours ago. She reports she feels relief when she lays flat, but her pain increases when she sits up. Patient reports her last bowel movement was approximately 2-3 hours ago and it was normal for her. She reports she still has her gallbladder, appendix, ovaries, and uterus. Patient denies any recent fevers, urinary symptoms, or back pain. She endorses a history of kidney stones, breast cancer, pneumonia, and sepsis. Related Data Home Medications ?Medication ?Instructions ?Recorded ?Confirmed ?Last Taken ?Type atorvastatin 10 mg tablet 10 mg PO DAILY 03/25/21 Unknown History metformin 500 mg tablet 500 mg PO BID 03/25/21 Unknown History triamterene 37.5 1 cap PO DAILY 03/25/21 Unknown History mg-hydrochlorothiazide 25 mg capsule Allergies Allergy/AdvReac Type Severity Reaction Status Date / Time tree nut Allergy Unknown Hives Verified 10/15/24 16:43 Pork Allergy Mild Hives Uncoded 10/15/24 16:43 Review of Systems Review of Systems: All systems reviewed & are unremarkable except as noted in HPI and below PMFSH Past Medical History Medical History Breast cancer Kidney stones Pneumonia Surgical History Surgical History History of mastectomy Left Social History Social History Smoking status: Former smoker Gender identity (if verbalized by the patient): Female Exam Narrative: GENERAL: Well appearing, well-nourished, non-toxic, in no acute distress. HEAD: Normocephalic, atraumatic. NECK: Supple. No adenopathy, no masses. RESPIRATORY: Airway patent, respirations nonlabored. Clear to auscultation bilaterally, no rales, rhonchi, wheezing. CARDIOVASCULAR: Regular rate and rhythm without murmurs, rubs, or gallops. Peripheral pulses 2+ and equal bilaterally. ABDOMINAL: Soft, + tender right lower quadrant, nondistended, no hepatosplenomegaly. Normoactive BS. +Chadwick's sign, + Psoas sign, + obturator's sign MUSCULOSKELETAL: Moves all extremities. Strength/ROM intact without gross deformities. SKIN: Warm, dry, normal color. No rashes. NEURO: A&O X3. Speech clear. Cranial nerves II-XII intact. No ataxic movements. PSYCHIATRIC: Appropriate mood and affect. Normal interaction. Course Vital Signs Vital signs: Vital Signs Temperature 36.6 C 10/15/24 16:41 Pulse Rate 86 10/15/24 16:41 Respiratory Rate 18 10/15/24 16:41 Blood Pressure 142/81 H 10/15/24 16:41 Pulse Oximetry 94 10/15/24 16:41 Oxygen Delivery Room Air 10/15/24 16:41 Temperature 36.6 C 10/15/24 16:41 Pulse Rate 86 10/15/24 16:41 Respiratory Rate 18 10/15/24 16:41 Blood Pressure 142/81 H 10/15/24 16:41 Pulse Oximetry 94 10/15/24 16:41 Oxygen Delivery Room Air 10/15/24 16:41 MDM - Abdominal Pain MDM Narrative Medical decision making narrative: Patient is an 84-year-old female who presents to the ER with right lower quadrant pain started approximately 1-1/2 hours ago. She reports she feels relief when she lays flat, but her pain increases when she sits up. Patient reports her last bowel movement was approximately 2-3 hours ago and it was normal for her. She reports she still has her gallbladder, appendix, ovaries, and uterus. Patient denies any recent fevers, urinary symptoms, or back pain. She endorses a history of kidney stones, breast cancer, pneumonia, and sepsis. Labs Ordered: CBC, CMP, lipase, UA Imaging Ordered: CT abdomen pelvis Medications Ordered: 1 L normal saline IV bolus, morphine 4 mg IV Results: Patient's CT scan indicates 1. Bilateral nonobstructing nephrolithiasis. 2. Small sliding-type hiatal hernia. Diagnosis: Abdominal pain Patient Education/Shared MDM: Results of lab work and imaging shared with patient and her . She endorses mild improvement of symptoms following medication administration. 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 She was offered more pain medication, but patient declined. Patient opted to take a Bentyl prior to discharge. She denies the need for nausea medication. Patient strongly advised to maintain hydration status upon discharge and follow-up with her PCP as soon as possible. She will be discharged home with a prescription for Bentyl. Strict return precautions provided. Patient verbalized understanding and is in agreement with plan. Vital signs stable at time of discharge. All questions answered. Differential Diagnosis Differential diagnosis: Likely abdominal pain, acute appendicitis, calculus of kidney, constipation and small bowel obstruction Lab Data Attestation: I reviewed the patient's lab results. 10/15/24 16:46 10/15/24 16:46 Labs: Lab Results 10/15/24 Range/Units 16:46 WBC 9.1 (4.5-10.0) K/mm3 RBC 4.40 (4.2-5.4) M/mm3 Hgb 13.2 (12.0-15.0) g/dL Hct 39.0 (37.0-47.0) % MCV 88.6 (80-100) fl MCH 30.0 (26-34) pg MCHC 33.8 (32-36) g/dl RDW 12.8 (11.5-14.5) % Plt Count 264 (150-375) k/mm3 MPV 10.0 (7.4-10.4) fl Immature Gran % (Auto) 0.2 (0-0.5) % Neut % (Auto) 54.3 (45.5-73.1) % Lymph % (Auto) 36.9 (18.3-44.2) % [place] % (Auto) 6.8 (2.6-8.5) % Eos % (Auto) 1.4 (0-4.4) % Baso % (Auto) 0.4 (0.2-1.2) % Lymph # (Auto) 3.36 H (0.9-3.2) K/mm3 [place] # (Auto) 0.6 (0.1-0.6) K/mm3 Eos # (Auto) 0.1 (0-0.3) K/mm3 Baso # (Auto) 0.0 (0.0-0.1) K/mm3 Abs Immat Gran (auto) 0.02 (0.00-0.031) K/mm3 Absolute Neuts (auto) 4.9 (1.3-6.7) K/mm3 Absolute Nucleated RBC 0.000 (0.0-0.012) K/mm3 Nucleated RBC % 0.0 (0.0-0.2) % Sodium 139 (137-145) mmol/L Potassium 4.1 (3.4-5.0) mmol/L Chloride 105 (98-107) mmol/L Carbon Dioxide 25 (22-30) mmol/L Anion Gap 9 (4-12) mmol/L BUN 21 H (7-17) mg/dL Creatinine 0.60 L (0.7-1.0) mg/dL Estim Creat Clear Calc 51 ml/min Estimated GFR > 60 (59 - ) Glucose 144 H (65-110) mg/dL Calcium 9.6 (8.4-10.2) mg/dL Total Bilirubin 0.2 (0.2-1.3) mg/dL AST 35 (14-36) U/L ALT 22 (6-35) U/L Alkaline Phosphatase 71 (38-126) U/L Total Protein 7.6 (6.3-8.2) g/dL Albumin 4.3 (3.5-5.1) g/dL Lipase 87 (23-300) U/L Urine Color Yellow (Yellow) Urine Appearance Clear (Clear) Urine pH 5.5 (5.0-9.0) Ur Specific [place] 1.020 (1.001-1.035) Urine Protein 1+ H (Negative) mg/dL Urine Glucose (UA) Negative (Negative) mg/dL Urine Ketones Negative (Negative) mg/dL Ur Blood (Man) Negative (Negative) Urine Nitrate Negative (Negative) Urine Bilirubin Negative (Negative) Urine Urobilinogen 1.0 (<2.0) mg/dL Leukocyte Esterase Rfl Trace H (Negative) DEE/UL Urine RBC 0-2 (0-2) /hpf Urine WBC 0-5 (0-3) /hpf Ur Squamous Epith Cells None seen (Few) /hpf Urine Bacteria None seen /hpf Urine Casts 0-2 Imaging Data Attestation: I personally reviewed and interpreted this imaging study as follows: Radiologist's impression: ITS Impressions Abdomen/Pelvis CT 10/15/24 18:15 IMPRESSION: 1. Bilateral nonobstructing nephrolithiasis. 2. Small sliding-type hiatal hernia. Discharge Plan Discharge Clinical Impression: Abdominal pain, Colicky RLQ abdominal pain Patient Disposition: Home Condition: Stable Instructions: Antibiotic Form Additional Instructions: Please return to the ER with any worsening symptoms. Follow-up with primary care provider as soon as possible. Take all medications as prescribed, including regularly scheduled medications. You may take Bentyl and Tylenol as needed for pain control. Patient Language: Bots[place] Prescriptions: New dicyclomine 20 mg tablet 20 mg PO TID Qty: 30 0RF No Action mupirocin 2 % ointment 1 applic topical BID Qty: 22 0RF methylprednisolone [Medrol (Tomas)] 4 mg tablets,dose pack 4 mg PO DAILY Qty: 21 0RF diclofenac potassium 50 mg tablet 50 mg PO BID PRN (Reason: pain) Qty: 14 0RF metformin 500 mg Tablet 500 mg PO BID atorvastatin 10 mg Tablet 10 mg PO DAILY triamterene-hydrochlorothiazid 37.5-25 mg Capsule 1 cap PO DAILY amoxicillin-pot clavulanate 875-125 mg tablet 1 tablet PO Q12H Qty: 20 0RF hydrocodone-acetaminophen 5-325 mg tablet 1 tablet PO Q6-8H PRN (Reason: pain) 3 Days Qty: 10 0RF ondansetron 4 mg tablet,disintegrating 4 mg PO Q6H PRN (Reason: nausea and vomiting) Qty: 20 0RF hydrocodone-acetaminophen 5-325 mg tablet 1 tablet PO Q6-8H PRN (Reason: pain) Qty: 3 0RF dicyclomine 10 mg capsule 10 mg PO TID Qty: 10 0RF Follow-up/Referrals: Samir Red MD [Primary Care Provider, Hospitalist] Time of Disposition: 20:05
[2024-10-15] MEDS: SODIUM CHLORIDE 0.9% IV 1,000 ML 999 ML IV CONT (17:36)
[2024-10-15] MEDS: MORPHINE SULFATE (*CRX) 4 MG/ML INJ IV PUSH (17:37)
--- OUTSIDE RECORDS SUMMARY | 2024-10-15 18:21 | XMS_ITS | Clinical Summary ---
Author Organization [facility] Address [address] [place] [address] Care Team Providers Care Project Technician Name Role Phone Unavailable Primary Care Provider Unavailabl e Source Comments [facility],non-owned Affiliates and Associated Physician Practices is amultiple site organization consisting of ambulatory clinics and hospital sitesin [place], [place], [place] and [place]. This disclosure is being madepursuant to the Care Everywhere program and may not contain all information available regarding this patient. Last updated 17.[facility] [employer] Allergies No known active allergies Immunizations Immunization Administration Dates Next Due INFLUENZA VACCINE, HIGH-DOSE , QUADR. 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 Gender Identity Not on file Sexual Orientation Not on file Plan of Treatment Health Maintenance Due Date Last Done Comments BONE DENSITY TESTING 1942 DTAP/TDAP/TD VACCINES (1 - Tdap) 1961 PNEUMOCOCCAL VACCINE 50+ (1 of 1 - PCV) 01/25/1992 ZOSTER VACCINE (1 of 2) 01/25/1992 Respiratory Syncytial Virus (RSV) Vaccine Pt: or over 60 yrs (1 - 1-dose 75+ series) 2017 COVID-19 VACCINE ( - 2023-2 5 season) 2023 DEPRESSION SCREENING 02/21/2024 INFLUENZA VACCINE (#1) 2024 11/27/2018 HEPATITIS B VACCINE Aged Out No longe r eligible based on patient's age to complete this topic HIB VACCINE Aged Out No longer eligi ble based on patient's age to complete this topic HPV VACCINE Aged Out No longer eligi ble based on patient's age to complete this topic MENINGOCOCCAL (Group B) VACC INE SHARED DECISION-MAKING Aged Out No longer eligibl e based on patient's age to complete this topic MENINGOCOCCAL GROUPS A/C/Y/W VACCINE Aged Out No longer eligible b ased on patient's age to complete this topic Insurance MEDICARE MEDICARE [employer]
--- OUTSIDE RECORDS SUMMARY | 2024-10-15 18:21 | XMS_ITS | Encounter Summary ---
Author Organization [facility] Address [address] [place] [address] Care Team Providers Care Counter Pocket Trimmer Name Role Phone Unavailable Primary Care Provider Unavailabl e Encounter Details Date Type Department Care Team (Late st Contact Info) Description 02/27/2018 Lab Requisition [facility] [address] [place] [address] Nneka Perez MD [address] [place] [address] Social History Tobacco Use Types Packs/Day Years Used Date Smoking Tobacco: Never Assessed Comments Unknown Sex and Gender Information Value Date Recorded Sex Assigned at Not on file 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 Gender Identity Not on file Sexual Orientation Not on file documented as of this encounter Plan of Treatment Not on file documented as of this encounter Procedures Procedure Name Priority Date/Time Associated Diagnosis Comments DERMATOPATH TECHNICAL REPORT Routine 02/26/2018 12:00 AM PATIENT EXPERIENCE COORDINATOR documented in this encounter Results * DERMATOPATH TECHNICAL REPORT (02/26/2018 12:00 AM PATIENT EXPERIENCE COORDINATOR) Case Report Dermatopathology Report Case: [id number] Authorizing Provider: Nneka Perez MD Collected: 02/26/2018 12:00 AM Pathologist: Jay Abel MD Received: 02/27/2018 06:56 AM Specimen: Skin, right upper arm 9 11:14 AM PATIENT EXPERIENCE COORDINATOR DERMATOPATHOLOGY LABORATORY Clinical History R/O ISK vs SCC-KA vs other. Irritated, non-healing, painful. 9 11:14 AM PATIENT EXPERIENCE COORDINATOR DERMATOPATHOLOGY LABORATORY Gross Description Specimen A: Received is one formalin filled container labeled with the patient's name and designated right upper arm. The specimen consists of a shave measuring [id number], bisected. Jar 0. [facility] Dermatopathology Laboratory performed the technical component only. 11:14 AM [facility] DERMATOPATHOLOGY LABORATORY Embedded Images 11:14 AM [facility] DERMATOPATHOLOGY LABORATORY DISCLAIMER An external and internal positive and negative controls are appropriate for the histochemical, immunohistochemical and immunofluorescence stain(s) in this case (if any), except where stated explicitly. The performance characteristics of the stain(s) cited in this report were developed and its performance characteristic determined by the Dermatopathology Laboratory at [facility]. These tests need not be, and therefore are not, approved by the [place] Food and Drug Administration. The tests are used for clinical purposes. 11:14 AM [facility] DERMATOPATHOLOGY LABORATORY at 1114 PATIENT EXPERIENCE COORDINATOR Pathology/Cytolog y TISSUE SPECIMEN FROM SKIN / Unknown 02/26/2018 02/27/2018 6:56 AM PATIENT EXPERIENCE COORDINATOR us Nneka Perez MD LAB - PATHOLOGY/CYTOLOGY OR DERABLES Final Result DERMATOPATHOLOGY LABORATORY [facility] - Department of Dermatology [address] [place] [address], [facility] [phone] documented in this encounter Visit Diagnoses Not on filedocumented in this encounter
--- OUTSIDE RECORDS SUMMARY | 2024-10-15 18:21 | XMS_ITS ---
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 06/30/2023 Postmenopausal osteoporosis 06/30/2023 Personal history of radiation therapy 02/08/2022 History of breast cancer 08/20/2020 Breast cancer screening 01/10/2019 Encounter for screening mamm ogram for malignant neoplasm of breast 04/23/2018 Actinic keratosis 12/07/2016 Skin neoplasm 11/22/2016 Preseptal cellulitis 11/18/2016 Malignant neoplasm of upper-outer quadrant of fe male breast 02/11/2016 Cancer Staging:Pathologic stage from 11/08/2021:Stage IA(pT1b, pN0(sn), cM0, G3, ER+, MO+, HER2-) - Signed by Ayan Bryant MD on 12/01/2021 Pseudophakia of left eye 11/16/2015 Nuclear cataract 11/16/2015 Glaucoma suspect 08/12/2015 Type 2 diabetes mellitus without complication History of malignant neoplasm of skin 10/16/2014 Keratosis 10/16/2014 Breast reconstruction disproportion 01/02/2014 Community acquired pneumonia 05/09/2013 Absence of breast 06/12/2012 Abnormal finding on mammography 02/29/2012 Urinary tract infection 01/27/2011 Laryngopharyngeal reflux 01/20/2011 Nephrolithiasis 04/30/2007 Current Treatment and Therapy Plans Zoledronic Acid Every 26 Weeks* Plan Start Date:07/05/2024 Plan Provider:Fany Argueta NP Linked Problems Malignant neoplasm of upper- outer quadrant of right breast in female, estrogen receptor positive (HCC)Postmenopausal osteoporosisLow bone massLong term (current) use of aromatase inhibitors Treatment Medications Current Day (Day 1 , Cycle 2 - Planned for 01/03/2025) Next Day (Day 1, Cycle 3 - Planned for 07/04/2025) No medications scheduled. No medications schedul ed. No medications scheduled. Other Current Plans IV Maintenance Therapy Plan* Plan Start Date:10/11/2024 Plan Provider:Fany Argueta NP Linked Problems long-term (current) use of a romatase inhibitors Treatment Medications No medications scheduled. Past Treatment and Therapy Plans Specialty Infusion Treatment Plan Name Start Date Discontinue Date Treatment Medications Discontinue Reason Plan Provider Zoledronic Acid (Reclast) Infusion 07/07/2023 07/12/2023 No medications scheduled. Provider Discretion Fany Argueta NP Radiation Treatments * Course [id number]_202112/27/2021 - 01/07/2022 Treatment Period Energy Fraction Dose Fractions Total Dose Plans Planned PRN_R BRSTBST 01/03/2022 - 01/07/2022 250 5 / 1,250 PRNE_RT BRST 12/27/2021 - 12/31/2021 520 5 / 2,600 Reference Points Delivered PRNE_RT BRST [facility] 01/03/2022 - 01/07/2022 1,250 PRNE_RT BRST 12/27/2021 - 12/31/2021 2,600
--- OUTSIDE RECORDS SUMMARY | 2024-10-15 18:21 | XMS_ITS | Encounter Summary ---
Author Organization [facility] Address [address] [facility] [place] [address] Care Team Providers Care Full Charge Bookkeeper Name Role Phone Unavailable Primary Care Provider Unavailabl e Encounter Details Date Type Department Care Team (Late st Contact Info) Description 09/24/2018 Lab Requisition [facility] Care DermPath Lab [address] 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 Gender Identity Not on file Sexual Orientation Not on file documented as of this encounter Plan of Treatment Not on file documented as of this encounter Procedures Procedure Name Priority Date/Time Associated Diagnosis Comments DERMATOPATH TECHNICAL REPORT Routine 09/20/2018 12:00 AM CDT documented in this encounter Results * DERMATOPATH TECHNICAL REPORT (09/20/2018 12:00 AM CDT) Case Report Dermatopathology Report Case: [id number] Authorizing Provider: Nneka Perez MD Collected: 09/20/2018 12:00 AM Pathologist: Julia Wu MD Received: 09/24/2018 10:59 AM Specimen: Skin, right upper inner arm 9 12:11 PM CDT DERMATOPATHOLOGY LABORATORY Addendum 1 At the request of the diagnosing physician, the technical component for Mib-1 was performed by [facility] Dermatopathology Laboratory. 9 12:11 PM CDT DERMATOPATHOLOGY LABORATORY Addendum electronically signed by Julia Wu MD on 09/26/2018 at 1211 CDT Clinical History R/O SCC, growing, irritated non-healing. 12:11 PM CDT DERMATOPATHOLOGY LABORATORY Gross Description Specimen A: Received is one formalin filled container labeled with the patient's name and designated right upper inner arm . The specimen consists of a shave measuring [id number]. Jar 0. [facility] Dermatopathology Laboratory performed the technical component only. 12:11 PM CDT DERMATOPATHOLOGY LABORATORY Embedded Images 12:11 PM CDT DERMATOPATHOLOGY LABORATORY DISCLAIMER An external and internal positive and negative controls are appropriate for the histochemical, immunohistochemical and immunofluorescence stain(s) in this case (if any), except where stated explicitly. The performance characteristics of the stain(s) cited in this report were developed and its performance characteristic determined by the Dermatopathology Laboratory at [facility], directed by Dr. Brie Abel. These tests need not be, and therefore are not, approved by the [place] Food and Drug Administration. The tests are used for clinical purposes. 12:11 PM CDT DERMATOPATHOLOGY LABORATORY at 1528 CDT Pathology/Cytolog y TISSUE SPECIMEN FROM SKIN / Unknown 09/20/2018 09/24/2018 10:59 AM CDT Nneka Perez MD LAB - PATHOLOGY/CYTOLOGY OR DERABLES Edited Result - Final DERMATOPATHOLOGY LABORATORY [facility] - Department of Dermatology [address] [facility], [address]th [place] [address], [facility] [phone] documented in this encounter Visit Diagnoses Not on filedocumented in this encounter
--- OUTSIDE RECORDS SUMMARY | 2024-10-15 18:21 | XMS_ITS | Encounter Summary ---
Author Organization [facility] Address [address] [facility] [place] [address] Care Team Providers Care Copier Repair Technician Name Role Phone Unavailable Primary Care Provider Unavailabl e Encounter Details Date Type Department Care Team (Late st Contact Info) Description 11/15/2018 Lab Requisition [facility] DermPath Lab [address] [facility] [place] [address] Nneka Perez MD [address] [facility] [address] [place] [address] Social History Tobacco Use Types Packs/Day Years Used Date Smoking Tobacco: Never Assessed Comments Unknown Sex and Gender Information Value Date Recorded Sex Assigned at Not on file Legal Sex Female 5:31 PM CERAMIST Gender Identity Not on file Sexual Orientation Not on file documented as of this encounter Plan of Treatment Not on file documented as of this encounter Procedures Procedure Name Priority Date/Time Associated Diagnosis Comments DERMATOPATHOLOGY Routine 11/14/2018 12:0 0 AM CDT documented in this encounter Results * DERMATOPATHOLOGY (11/14/2018 12:00 AM CDT) Case Report Dermatopathology Report Case: [id number] Authorizing Provider: Nneka Perez MD Collected: 11/14/2018 12:00 AM Ordering Location: [facility] Care DermPath Lab Received: 11/15/2018 06:37 AM Pathologist: Jay Abel MD Specimen: Skin, right upper inner arm 9 12:37 PM CDT DERMATOPATHOLOGY LABORATORY Final Diagnosis Specimen A. SKIN, right upper inner arm: DERMAL SCAR RESIDUAL MELANOCYTIC PROLIFERATION NOT IDENTIFIED (L90.5) 9 12:37 PM CDT DERMATOPATHOLOGY LABORATORY at 1237 CDT Clinical History R/O squamous prolif; biopsy proven. Check margins. 12:37 PM CDT DERMATOPATHOLOGY LABORATORY Gross Description Specimen A: Received is one formalin filled container labeled with the patient's name and designated right upper inner arm. The specimen consists of a non-oriented ellipse of skin measuring 63p23x8nm. The epidermal surface consists of a centrally located 8x4mm previous biopsy site. The margin is inked green. The 12 o'clock and 6 o'clock tips are submitted in cassette 1. The remainder of the ellipse is serially sectioned and submitted in cassettes 2-3. Jar 0. 12:37 PM CDT DERMATOPATHOLOGY LABORATORY Microscopic Description Specimen A. SKIN, right upper inner arm: There are fibroblasts and collagen bundles oriented parallel to the skin surface. There are elongated blood vessels, some of which are oriented perpendicular to the skin surface. No residual melanocytic proliferation is identified. 12:37 PM CDT DERMATOPATHOLOGY LABORATORY Disclaimer An external and internal positive and negative controls are appropriate for the histochemical, immunohistochemical and immunofluorescence stain(s) in this case (if any), except where stated explicitly. The performance characteristics of the stain(s) cited in this report were developed and its performance characteristic determined by the Dermatopathology Laboratory at [facility], directed by Dr. Brie Abel. These tests need not be, and therefore are not, approved by the [place] Food and Drug Administration. The tests are used for clinical purposes. Billing Codes Specimen Charges Stain Charges 08020 1 12:37 PM CDT DERMATOPATHOLOGY LABORATORY Embedded Images 12:37 PM CDT DERMATOPATHOLOGY LABORATORY Pathology/Cytolog y TISSUE SPECIMEN FROM SKIN / Unknown 11/14/2018 11/15/2018 6:37 AM CDT Nneka Perez MD LAB - PATHOLOGY/CYTOLOGY OR DERABLES Final Result DERMATOPATHOLOGY LABORATORY [facility] - Department of Dermatology [address] [place] [address] 5th Floor Lab B [address] [phone] documented in this encounter Visit Diagnoses Not on filedocumented in this encounter
[2024-10-15 19:00] VITALS: BP 138/62; PULSE 62; RESP 18; O2SAT 93
[2024-10-15 20:00] VITALS: BP 106/48; PULSE 63; RESP 14; O2SAT 96
[2024-10-15] MEDS: DICYCLOMINE HCL 10 MG CAPSULE 20 MG PO (20:17)
== END 2024-10-15 20:28 | disposition home or self-care (01) ==
PROVIDERS: Emergency Medicine; Emergency Provider Registered Nurse; PCP Internal Medicine
DX: R10.31 Right lower quadrant pain (principal); K44.9 Diaphragmatic hernia without obstruction or gangrene; Z85.3 Personal history of malignant neoplasm of breast; Z87.442 Personal history of urinary calculi
CPT/HCPCS: 36415; 74177; 80053; 81001; 83690; 85025; 96361; 96374; 99284; A9270; J2270; J7030; Q9967

== ENCOUNTER 2025-01-15 11:40 | Emergency (ER) | payer MEDICARE, SELFPAY ==
--- NOTE | ~2025-01-15 | CT_ITS ---
EXAMINATION: CT cervical spine wo con COMPARISON: None HISTORY: injury 3-4 d ago TECHNIQUE: Axial images were obtained through the spine without IV contrast. Coronal, sagittal reconstruction images were obtained from the axial views. CT scan performed using dose optimization techniques including the following automated exposure control; adjustment of mA and/or kV; use of iterative reconstruction technique. Automatic exposure control was used to reduce radiation dose. Permanent radiation dose record is archived to PACS. FINDINGS: Grade 1 anterolisthesis of C3 on C4 and C4 on C5, no fracture. Moderate loss of disc height at C4-5 C5-6 with moderate to severe canal and foraminal stenosis. Soft tissues demonstrate subcentimeter bilateral thyroid nodules. Impression: No acute abnormality. Reviewed, dictated and finalized at location P. 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
--- NOTE | ~2025-01-15 | CT_ITS ---
EXAMINATION: CT BRAIN W/O DATE: 01/15/2025 12:39 INDICATION: Trauma 3 days ago. Persistent headache. TECHNIQUE: Computed tomography (CT) of the head was performed without intravenous contrast. The dose-length product was 605.33 mGy-cm. COMPARISON: No prior studies for comparison. FINDINGS: Normal brain parenchymal volume for age. Normal ramirez-white differentiation. No acute intracranial hemorrhage, infarction, mass or mass effect. There are scattered mild periventricular and subcortical white matter changes, most likely related to small vessel ischemic disease (microangiopathy). There is intracranial atherosclerosis. No ventriculomegaly or midline shift. Midline sagittal images demonstrate a normal corpus callosum, craniovertebral junction and sella turcica. Basilar cisterns are patent. Paranasal sinuses and mastoids are pneumatized. No depressed skull fractures. IMPRESSION: 1. No acute intracranial abnormality. Reviewed, dictated and finalized at location O. 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
[2025-01-15 11:45] VITALS: BP 125/64; PULSE 69; RESP 20; TEMP 36.2; O2SAT 98
--- OUTSIDE RECORDS SUMMARY | 2025-01-15 12:15 | XMS_ITS | Encounter Summary ---
Author Organization [facility] Address [address] [facility] [place] [address] Care Team Providers Care Algology Teacher Name Role Phone Unavailable Primary Care Provider Unavailabl e Encounter Details Date Type Department Care Team (Late st Contact Info) Description 09/24/2018 Lab Requisition [facility] Care DermPath Lab [address] [place] [address] Nneka Perez MD [address] [facility] [address] [place] [address] Social History Tobacco Use Types Packs/Day Years Used Date Smoking Tobacco: Never Assessed Comments Unknown Sex and Gender Information Value Date Recorded Sex Assigned at Not on file Legal Sex Female 5:31 PM REDIPPER Gender Identity Not on file Sexual Orientation Not on file documented as of this encounter Plan of Treatment Not on file documented as of this encounter Procedures Procedure Name Priority Date/Time Associated Diagnosis Comments DERMATOPATH TECHNICAL REPORT Routine 09/20/2018 12:00 AM CDT documented in this encounter Results * DERMATOPATH TECHNICAL REPORT (09/20/2018 12:00 AM CDT) Case Report Dermatopathology Report Case: [id number] Authorizing Provider: Nneka Perez MD Collected: 09/20/2018 12:00 AM Pathologist: Julia Wu MD Received: 09/24/2018 10:59 AM Specimen: Skin, right upper inner arm 9 12:11 PM CDT DERMATOPATHOLOGY LABORATORY Addendum 1 At the request of the diagnosing physician, the technical component for Mib-1 was performed by [facility] Dermatopathology Laboratory. 9 12:11 PM CDT DERMATOPATHOLOGY LABORATORY Addendum electronically signed by Julia Wu MD on 09/26/2018 at 1211 CDT Clinical History R/O SCC, growing, irritated non-healing. 12:11 PM CDT DERMATOPATHOLOGY LABORATORY Gross Description Specimen A: Received is one formalin filled container labeled with the patient's name and designated right upper inner arm . The specimen consists of a shave measuring 2l2v7bp. Jar 0. [facility] Dermatopathology Laboratory performed the technical component [...] characteristic determined by the Dermatopathology Laboratory at [facility], directed by Dr. Brie Abel. These tests [...] DERABLES Edited Result - Final DERMATOPATHOLOGY LABORATORY [facility] - Department of Dermatology [address], [address] [place] [address], [facility] [phone] documented in this encounter Visit Diagnoses Not on filedocumented in this encounter
--- OUTSIDE RECORDS SUMMARY | 2025-01-15 12:15 | XMS_ITS | Clinical Summary ---
Author Organization [facility] Address [facility] [place] [address] Care Team Providers Care Welder Setter Electron Beam Machine Name Role Phone Adore Currie MD Primary Care Provider [phone] Allergies Active Allergy Reactions Criticality Noted Date Comments Porcine (Pork) Protein-Conta ining Drug Products Unknown 04/14/2021 Medications metFORMIN 500 MG tablet Take 500 mg by mouth daily with breakfast. Active atorvastatin 10 MG tablet Take 10 mg by mouth nightly at bedtime. Active triamterene-hyd roCHLOROthiazid e 37.5-25 MG tablet Take 1 tablet by mouth every other day. Active Family History Medical History Relation Comments Cancer Father Heart Disease Father Heart Disease Mother Relation Status Comments Father Mother Social History Tobacco Use Types Packs/Day Years Used Date Smoking Tobacco: Former Cigarettes 1 50 0 [birth year]1951 - 02/20/2001 Smokeless Tobacco: Never Alcohol Use Standard Drinks/Week Comments Never 0 (1 standard drink = 0.6 oz pur e alcohol) Comments Unknown Sex and Gender Information Value Date Recorded Sex Assigned at Not on file Legal Sex Female 2:14 PM FOREIGN CAR MECHANIC Gender Identity Not on file Sexual Orientation Not on file Last Filed Vital Signs Vital Sign [place] Time Taken Comments Blood Pressure 108/49 04/20/2021 12:15 PM FOREIGN CAR MECHANIC Pulse 72 04/20/2021 12:15 PM FOREIGN CAR MECHANIC Temperature 36.6 C (97.8 F) 04/20/2021 11:54 AM FOREIGN CAR MECHANIC Respiratory Rate 17 04/20/2021 12:15 PM FOREIGN CAR MECHANIC Oxygen Saturation 95% 04/20/2021 12:15 PM FOREIGN CAR MECHANIC Inhaled Oxygen Concentration - - Weight 63.5 kg (140 lb) 04/14/2021 2:49 PM FOREIGN CAR MECHANIC Height 160 cm (5' 3) 04/14/2021 2:49 PM FOREIGN CAR MECHANIC Body Mass Index 24.8 04/14/2021 2:49 PM FOREIGN CAR MECHANIC Plan of Treatment Health Maintenance Due Date Last Done Comments DTaP, Tdap and Td Vaccines ( 1 - Tdap) 1961 Zoster Vaccines (1 of 2) 01/25/1992 Annual Medicare Wellness Visit 2007 Dexa Scan (General) 2007 RSV Immunization or 60+ Years (1 - 1-dose 75+ series) 2017 COVID-19 Vaccine (4 - 2024-2 6 season) 2024 11/14/2020, 04/26/2020, 03/31/2020 Influenza Adult (#1) 2024 10/31/2019, 11/27/2018, 02/18/2014 Pneumococcal Vaccine: 50+ Years Completed 12/06/2019, 12/04/2018, 02/18/2014 Hepatitis A Vaccines Aged Out No long er eligible based on patient's age to complete this topic Meningococcal B Vaccine Aged Out No l onger eligible based on patient's age to complete this topic Meningococcal Vaccine Aged Out No jabari aspen eligible based on patient's age to complete this topic RSV Immunizations Under 20 Months Aged Out No longer eligible b ased on patient's age to complete this topic Medical Devices Implanted Type Area Canvas Marker Device Identifier Shelf Expiration Date Model / Serial / Lot Breast Insurance [facility]ICARE [facility] Care Teams Welder Setter Electron Beam Machine Relationship Specialty Start Date End Date Adore Currie MD [address] [place] [address] PCP - General INTERNAL MEDICINE 04/20/21
--- OUTSIDE RECORDS SUMMARY | 2025-01-15 12:15 | XMS_ITS | Clinical Summary ---
Author Organization [facility] Address [address] [place] [address] Care Team Providers Care Appliquer Name Role Phone Vinita Greenwood MD Unavailable [phone] Samir Red MD Primary Care Provider [phone] Fany Argueta NP Unavailable [phone] Ayan Bryant MD Unavailable [phone] Allergies Active Allergy Reactions Criticality Noted Date Comments Conjugated Estrogens Rash Medium 08/26/2022 Estrogens, Conjugated Unknown 02/01/2023 Nuts Other (See comments) Low 03/06/2012 acne Penicillin Unknown,Rash Medium 08/26/2022 Pork Other (See comments) Low 03/06/2012 abscess Medications calcium carbonate-vitam in D3 1500 mg (600 mg elemental) -200 units per tablet Take 1 tablet by mouth nightly Active coenzyme Q10 400 mg capsule Take 1 capsule (400 mg total) by mouth nightly Active multivitamin tablet Take 1 tablet by mouth nightly Active glucosam/obed-m sm1/C/patricio/bosw (OSTEO BI-FLEX TRIPLE STRENGTH ORAL) Take 1 capsule by mouth nightly Active POTASSIUM ACETATE MISC Take 99 mg by mouth nightly Active triamterene-hyd roCHLOROthiazid e (MAXZIDE,DYAZID E) 37.5-25 mg per tablet/capsule Take 1 tablet/capsu le by mouth nightly Active atorvastatin (LIPITOR) 10 mg tablet Take 1 tablet (10 mg total) by mouth nightly 12/10/2019 Active metFORMIN (GLUCOPHAGE) 500 mg tablet Take 1 tablet (500 mg total) by mouth nightly 11/22/2019 Active melatonin 10 mg tablet Take 1 tablet (10 mg total) by mouth nightly Active anastrozole (ARIMIDEX) 1 mg tabletIndicatio ns:Malignant neoplasm of upper-outer quadrant of right breast in female, estrogen receptor positive (HCC) TAKE 1 TABLET(1 MG) BY MOUTH DAILY 90 tablet 3 07/02/2024 Active traZODone (DESYREL) 50 mg tablet Take 1 tablet (50 mg total) by mouth nightly Active Active Problems Problem Noted Date Diagnosed Date Vitamin D deficiency 01/02/2025 Low bone mass 07/13/2023 intermission coordinator (current) use of aromatase inhibitors 06/30/2023 Postmenopausal osteoporosis 06/30/2023 Personal history of radiation therapy 02/08/2022 History of breast cancer 08/20/2020 Breast cancer screening 01/10/2019 Encounter for screening mamm ogram for malignant neoplasm of breast 04/23/2018 Actinic keratosis 12/07/2016 Skin neoplasm 11/22/2016 Preseptal cellulitis 11/18/2016 Malignant neoplasm of upper- outer quadrant of right breast in female, estrogen receptor positive 02/11/2016 Cancer Staging:Pathologic stage from 11/08/2021:Stage IA(pT1b, pN0(sn), cM0, G3, ER+, TN+, HER2-) - Signed by Ayan Bryant MD on 12/01/2021 Pseudophakia of left eye 11/16/2015 Nuclear cataract 11/16/2015 Glaucoma suspect 08/12/2015 Type 2 diabetes mellitus without complication History of malignant neoplasm of skin 10/16/2014 Keratosis 10/16/2014 Breast reconstruction disproportion 01/02/2014 Community acquired pneumonia 05/09/2013 Absence of breast 06/12/2012 Abnormal finding on mammography 02/29/2012 Urinary tract infection 01/27/2011 Laryngopharyngeal reflux 01/20/2011 Nephrolithiasis 04/30/2007 Encounters Date Type Department Care Team Description 01/03/2025 1:30 PM PASSENGER TIRE INSPECTOR Infusion [facility] at [address] [address] intermission coordinator (current) use of aromatase inhibitors (Primary Dx); Malignant neoplasm of upper-outer quadrant of right breast in female, estrogen receptor positive (HCC); Postmenopausal osteoporosis; Low bone mass 01/03/2025 1:00 PM PASSENGER TIRE INSPECTOR Office Visit [facility] [address] [place] [address] Fany Argueta NP Postmenopausal osteoporosis (Primary Dx); intermission coordinator (current) use of aromatase inhibitors; Malignant neoplasm of upper-outer quadrant of right breast in female, estrogen receptor positive (HCC); History of breast cancer; Low bone mass 01/03/2025 12:30 PM PASSENGER TIRE INSPECTOR Lab [facility] at [address] [address] Malignant neoplasm of upper-outer quadrant of right breast in female, estrogen receptor positive (HCC); Postmenopausal osteoporosis; Low bone mass; intermission coordinator (current) use of aromatase inhibitors from Last 3 Months Immunizations Immunization Administration Dates Next Due Influenza, Quadrivalent, Hig h Dose, Preservative Free, Intrr 12/03/2021,11/14/2020,11/27/2018 Influenza, Trivalent, High D ose, Split, Preservative Free, Intramuscular 11/27/2018 Influenza, Trivalent, IM (MDV) 02/18/2014 Influenza, Unspecified 10/31/2019 Pfizer SARS-CoV-2 Monovalent Vaccination (12+ Yrs) PURPLE 04/26/2020,03/31/2020 Pneumococcal Conjugate PCV 13 12/04/2018 Pneumococcal Polysaccharide PPV23 12/06/2019, Surgical History Surgery Date Site/Laterality Comments PORT PLACEMENT CHEST >5 YEARS 06/14/2012 N/A US UNLISTED PROCEDURE LYMPH SYSTEM 04/02/2012 N/A COLONOSCOPY COMPLETE MASTECTOMY W/ SENTINEL NODE BIOPSY 02/21/2012 - 02/19/2013 Left RECONSTRUCTION BREAST IMMEDIATE / DELAYED W/ TISSUE INSTRUMENT MECHANIC 02/21/2012 - 02/19/2013 Left BREAST BIOPSY 09/28/2021 Right BREAST BIOPSY 10/15/2021 Right BREAST RECONSTRUCTION 02/20/2014 - 02/19/2015 Left right breast reduction REDUCTION MAMMAPLASTY 02/20/2014 - 02/19/2015 Right PORT REMOVAL 02/20/2014 - 02/19/2015 Medical History Medical History Date Comments Hypercholesterolemia Left Breast cancer (CMS/HCC) Pneumonia 2014 Diabetes mellitus Nephrolithiasis Glaucoma Cataract Actinic keratosis Hypertension GERD (gastroesophageal reflux disease) Family History Medical History Relation Name Comments Heart disease Father Stomach cancer Father Heart disease Mother Uterine cancer Mother not sure abou t dx Breast cancer Paternal Grandmother untrea mrey Anesthesia problems Neg Hx Relation Name Status Comments Father Mother Paternal Grandmother Social History Tobacco Use Types Packs/Day Years Used Date Smoking Tobacco: Former Cigarettes 1 40 1 962 - 2002 Smokeless Tobacco: Never Tobacco Cessation:Counseling Given: Not Answered Alcohol Use Standard Drinks/Week Comments Yes 2 (1 standard drink = 0.6 oz pur e alcohol) Humiliation, Afraid, Rape, and Kick questionnair e Answer Date Recorded Fear of Current or Ex-Partner Patient declined 0 08/02/2018 Emotionally Abused Patient declined 08/02/2018 Physically Abused Patient declined 08/02/2018 Sexually Abused Patient declined 08/02/2018 Social Connection and Isolation Panel Answer Date Recorded Frequency of Communication with Friends and Fami ly Patient declined 08/02/2018 Frequency of Social Gatherings with Friends and Family Patient declined 08/02/2018 Attends Orthodox Services Patient declined 07/21 Active Member of Clubs or Organizations Patient declined 08/02/2018 Attends Club or Organization Meetings Patient de clined 08/02/2018 Marital Status Patient declined 08/02/2018 Overall Financial Resource Strain (CARDIA) Answe r Date Recorded Difficulty of Paying Living Expenses Patient dec lined 08/02/2018 [facility] - Occupational Stress Questionnaire Answer Date Recorded Feeling of Stress Patient declined 08/02/2018 Exercise Vital Sign Answer Date Recorde d Days of Exercise per Week Patient declined 08/02 Minutes of Exercise per Session Patient declined 08/02/2018 Hunger Vital Sign Answer Date Recorded Worried About Running Out of Food in the Last Ye ar Patient declined 08/02/2018 Ran Out of Food in the Last Year Patient decline d 08/02/2018 PRAPARE - Transportation Answer Date Re corded Lack of Transportation (Medical) Patient decline d 08/02/2018 Lack of Transportation (Non-Medical) Patient dec lined 08/02/2018 AUDIT-C Answer Date Recorded Frequency of Alcohol Consumption Not on file 01/03/2025 Q2: How many drinks containi ng alcohol do you have on a typical day when you are drinking? 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 Not on file Not on file Not on fi le Last Filed Vital Signs Vital Sign Reading Time Taken Comments Blood Pressure 120/77 01/03/2025 1:24 PM PASSENGER TIRE INSPECTOR Pulse 88 01/03/2025 1:24 PM PASSENGER TIRE INSPECTOR Temperature 36.7 C (98.1 F) 01/03/2025 1:24 PM PASSENGER TIRE INSPECTOR Respiratory Rate 18 01/03/2025 1:24 PM PASSENGER TIRE INSPECTOR Oxygen Saturation 96% 01/03/2025 1:24 PM PASSENGER TIRE INSPECTOR Inhaled Oxygen Concentration - - Weight 62.8 kg (138 lb 7.2 oz) 01/03/2025 1:24 P M PASSENGER TIRE INSPECTOR Height 157.5 cm (5' 2.01) 07/12/2024 2:12 PM CD T Body Mass Index 25.32 07/12/2024 2:12 PM CDT Plan of Treatment Health Maintenance Due Date Last Done Comments Depression Screening 1942 Dilated Eye Exam 1942 Foot Exam 1942 DTaP/Tdap/Td Vaccine (1 - Tdap) 1953 Hepatitis B Screening 01/25/1960 Well Visit 65+ 2007 Fall Risk Assessment 11/08/2022 11/08/2021 Hemoglobin A1C 12/31/2023 06/30/2023, 08/15/2022 Albumin Creatinine Ratio, Urine 06/29/2024 4, 08/15/2022 Lipid Panel 06/29/2024 06/30/2023, 08/15/2022 Covid-19 Vaccine (5 - 2024-2 6 season) 2024 12/03/2021, 11/14/2020, 04/26/2020, Additional history exists Influenza Vaccine (#1) 2024 4, 01/06/2023, 12/03/2021, Additional history exists eGFR 01/03/2026 01/03/2025, 06/20, 01/05/2024, Additional history exists Osteoporosis Screening-Bone Density Scan 08/19/2026 08/19/2024, 08/18/2022 Pneumococcal vaccine 65+ Completed , 12/04/2018, 02/18/2014 Zoster Vaccine Completed 03/17/2023, 01/06/2023 Medical Devices Implanted Type Area Line Tender Device Identifier Shelf Expiration Date Model / Serial / Lot [employer] Magseed 18ga 7cm Marker Breast Biopsy [id number] - [id number] Implanted:Qty : 1 on 11/04/2021 at [facility] Right: Breast [employer] [id number] 05/20/2025 [id number] Procedures Procedure Name Priority Date/Time Associated Diagnosis Comments EGFR STAT 01/03/2025 1:09 PM PASSENGER TIRE INSPECTOR Malignant neoplasm of upper-outer quadrant of right breast in female, estrogen receptor positive (HCC) Postmenopausal osteoporosis Low bone mass intermission coordinator (current) use of aromatase inhibitors DIFFERENTIAL AUTO Routine 01/03/2025 1:0 9 PM PASSENGER TIRE INSPECTOR Malignant neoplasm of upper-outer quadrant of right breast in female, estrogen receptor positive (HCC) Postmenopausal osteoporosis Low bone mass intermission coordinator (current) use of aromatase inhibitors CBC WITH AUTO DIFFERENTIAL Routine 01/03/2025 1:09 PM PASSENGER TIRE INSPECTOR Malignant neoplasm of upper-outer quadrant of right breast in female, estrogen receptor positive (HCC) Postmenopausal osteoporosis Low bone mass FDC (current) use of aromatase inhibitors COMPREHENSIVE METABOLIC PANEL STAT 01/03/2025 1:09 PM PASSENGER TIRE INSPECTOR Malignant neoplasm of upper-outer quadrant of right breast in female, estrogen receptor positive (HCC) Postmenopausal osteoporosis Low bone mass intermission coordinator (current) use of aromatase inhibitors VITAMIN D 25 HYDROXY Routine 01/03/2025 1:09 PM PASSENGER TIRE INSPECTOR Malignant neoplasm of upper-outer quadrant of right breast in female, estrogen receptor positive (HCC) Postmenopausal osteoporosis Low bone mass intermission coordinator (current) use of aromatase inhibitors DEXA AXIAL SKELETON BONE DENSITY 1 OR MORE SITES Schedule Routine, Read Routine (OP Routine) 08/19/2024 1:58 PM CDT intermission coordinator (current) use of aromatase inhibitors Low bone mass Encounter for osteoporosis screening in asymptomatic postmenopausal patient ALBUMIN CREATININE RATIO, URINE Routine 06/30/2023 2:06 PM CDT HEMOGLOBIN A1C Routine 06/30/2023 2:05 PM CDT LIPID PANEL Routine 06/30/2023 2:05 PM CDT from Last 3 Months or Most Recently Relevant to Health Maintenance Results * eGFR (01/03/2025 1:09 PM PASSENGER TIRE INSPECTOR) eGFR 86 >=60 mL/min/1. 73 m2 Comment: Interpretive Data Reference Interval Normal >/= 90 mL/min/1.73m2 Mildly decreased* 60 - 89 mL/min/1.73m2 Mildly to moderately decreased 45 - 59 mL/min/1.73m2 Moderately to severely decreased 30 - 44 mL/min/1.73m2 Severely decreased 15 - 29 mL/min/1.73m2 Kidney Failure < 15 mL/min/1.73m2 *Relative to young adult level Estimated glomerular filtration rate is determined by the 2020 CKD-EPI equation recommended by the National Kidney Foundation (A Unifying Approach to GFR Estimation: Recommendations of the NKF-ASK Task Force on Reassessing the Inclusion of Race in Diagnosing Kidney Disease, JASN 2020). The CKD-EPI equation should not be used for patients with unstable renal function and has not been validated in children and those over 70. Current interpretive data was last reviewed 2020. Testing performed by: [facility], [address] [place] [address]., [address] Blood 01/03/2025 1:09 PM PASSENGER TIRE INSPECTOR 01/03/2025 1:15 PM PASSENGER TIRE INSPECTOR us Fany Argueta NP LAB BLOOD ORDERABLES Final Result TARIK [address] [facility] [place] [address] * Differential, auto (01/03/2025 1:09 PM PASSENGER TIRE INSPECTOR) Neutrophil abs 4.74 1.50 - 6.50 K/cumm Comment:Testing performed by : [address] [address] Imm gran abs 0.01 0.00 - 0.10 K/cumm TARIK Comment:Testing performed by : [address] [address] Lymphocyte abs 3.05 0.80 - 3.30 K/cumm [facility] Comment:Testing performed by : [address] [address] Monocyte abs 0.50 0.20 - 0.80 K/cumm [facility] Comment:Testing performed by : [address] [address] Eosinophil abs 0.09 0.00 - 0.50 K/cumm [facility] Comment:Testing performed by : [address] [address] Basophil abs 0.03 0.00 - 0.10 K/cumm [facility] Comment:Testing performed by : [address] [address] Neutrophil pct 56.3 % [facility] Comment: Interpretive Data Percent cell count reference ranges are not reported, since discordance with absolute values may lead to misinterpretation of CBC data. Current Interpretive Data was last revised on 2017. Testing performed by: [address] [address] Imm gran pct 0.1 % [facility] Comment: Interpretive Data Percent cell count reference ranges are not reported, since discordance with absolute values may lead to misinterpretation of CBC data. Current Interpretive Data was last revised on 2017. Testing performed by: [address] [address] Lymphocyte pct 36.2 % [facility] Comment: Interpretive Data Percent cell count reference ranges are not reported, since discordance with absolute values may lead to misinterpretation of CBC data. Current Interpretive Data was last revised on 2017. Testing performed by: [address] [place]., [address] Monocyte pct 5.9 % TARIK Comment: Interpretive Data Percent cell count reference ranges are not reported, since discordance with absolute values may lead to misinterpretation of CBC data. Current Interpretive Data was last revised on 2017. Testing performed by: [address] [address] Eosinophil pct 1.1 % TARIK LEVINE Comment: Interpretive Data Percent cell count reference ranges are not reported, since discordance with absolute values may lead to misinterpretation of CBC data. Current Interpretive Data was last revised on 2017. Testing performed by: [address] [address] Basophil pct 0.4 % TARIK Comment: Interpretive Data Percent cell count reference ranges are not reported, since discordance with absolute values may lead to misinterpretation of CBC data. Current Interpretive Data was last revised on 2017. Testing performed by: [address] [address] Blood 01/03/2025 1:09 PM PASSENGER TIRE INSPECTOR 01/03/2025 1:15 PM PASSENGER TIRE INSPECTOR Fany Argueta TRAIN OPERATIONS SUPERVISOR LAB BLOOD ORDERABLES Final Result TARIK [address] [facility] [place] [address] * CBC with auto differential (01/03/2025 1:09 PM PASSENGER TIRE INSPECTOR) WBC 8.42 3.80 - 9.90 K/cumm Comment:Testing performed by : [address] [address] Hgb 12.8 11.9 - 15.5 g/dL TARIK LEVINE Comment:Testing performed by : [address] [address] Hct 36.8 35.6 - 45.5 % TARIK LEVINE Comment:Testing performed by : [address] [address] Plt 275 150 - 400 K/cumm TARIK LEVINE Comment:Testing performed by : [address] [address] MPV 10.3 9.1 - 12.3 fL TARIK Comment:Testing performed by : [address] [address] RBC 4.26 3.90 - 5.20 M/cumm ATRIK Comment:Testing performed by : [address] [address] MCV 86.4 81.3 - 96.4 fL TARIK Comment:Testing performed by : [address] [address] MCH 30.0 27.1 - 33.3 pg TARIK Comment:Testing performed by : [address] [address] MCHC 34.8 32.3 - 35.7 g/dL TARIK Comment:Testing performed by : [address], [address] RDW CV 12.8 11.1 - 14.9 % TARIK Comment:Testing performed by : [address], [address] RDW SD 39.9 35.7 - 48.1 fL TARIK Comment:Testing performed by : [address], [address] NRBC abs 0.00 0.00 - 0.01 K/cumm TARIK Comment:Testing performed by : [address] [address] ANC Prelim 4.74 1.50 - 6.50 K/cumm TARIK Comment: Interpretive Data The rapid ANC is a preliminary automated count and may vary from the final ANC (Neut Abs) reported in the WBC differential that follows. Current interpretive data was last revised 2024. Testing performed by: [address] [address] Blood 01/03/2025 1:09 PM PASSENGER TIRE INSPECTOR 01/03/2025 1:15 PM PASSENGER TIRE INSPECTOR Fany Tsangk TRAIN OPERATIONS SUPERVISOR LAB BLOOD ORDERABLES Final Result TARIK [address] [facility] [place] [address] * Vitamin D 25 hydroxy (01/03/2025 1:09 PM PASSENGER TIRE INSPECTOR) [facility] Vitamin D 25-OH 60.0 30.0 - 80.0 ng/mL Blood 01/03/2025 1:09 PM PASSENGER TIRE INSPECTOR 01/03/2025 4:24 PM PASSENGER TIRE INSPECTOR Fany Espinoza Kendall TRAIN OPERATIONS SUPERVISOR LAB BLOOD ORDERABLES Final Result Performing Organization Address [facility] Co de Phone Number TARIK [address] [facility] [place] [address] * Comprehensive metabolic panel (01/03/2025 1:09 PM PASSENGER TIRE INSPECTOR) [facility] Sodium 141 135 - 145 mmol/L Comment:Testing performed by : [address] [address] Potassium, pl 3.8 3.3 - 4.9 mmol/L TARIK Comment:Testing performed by : [address] [address] Chloride 104 97 - 110 mmol/L TARIK Comment:Testing performed by : [address] [address] CO2 24 22 - 32 mmol/L TARIK Comment:Testing performed by : [address] [address] Anion gap 13 2 - 15 mmol/L TARIK Comment:Testing performed by : [address] [address] BUN 21 6 - 25 mg/dL TARIK Comment:Testing performed by : [address] [address] Creatinine 0.70 0.60 - 1.10 mg/dL TARIK Comment:Testing performed by : [address] [address] Glucose 169 70 - 199 mg/dL TARIK Comment: Interpretive Data Fasting glucose >/= 126 mg/dl is diagnostic for diabetes. Fasting is defined as no caloric intake for at least 8 hours. Fasting glucose between 100 mg/dl to 125 mg/dl is diagnostic of prediabetes. In a patient with classic symptoms of hyperglycemia or hyperglycemic crisis, a random glucose >/= 200 mg/dl is diagnostic for diabetes. In the absence of unequivocal hyperglycemia, results should be confirmed by repeat testing. The classification and Diagnosis of Diabetes Diabetes Care 2021; 46: S19-S40. Current interpretive data was last revised 2022. Testing performed by: [address] [address] Calcium 9.5 8.5 - 10.3 mg/dL TARIK Comment:Testing performed by : [address] [address] Bilirubin, total 0.4 0.1 - 1.2 mg/dL TARIK Comment:Testing performed by : [address] [address] Protein, pl 7.0 6.5 - 8.5 g/dL TARIK Comment:Testing performed by : [address] [address] Albumin 4.2 3.5 - 5.0 g/dL TARIK Comment:Testing performed by : [address] [address] Alk phos 67 40 - 130 Units/L TARIK Comment:Testing performed by : [address] [address] ALT 12 7 - 45 Units/L TARIK Comment:Testing performed by : [address] [address] AST 19 10 - 45 Units/L TARIK Comment:Testing performed by : [address] [address] Blood 01/03/2025 1:09 PM PASSENGER TIRE INSPECTOR 01/03/2025 1:15 PM PASSENGER TIRE INSPECTOR us Fany Argueta TRAIN OPERATIONS SUPERVISOR LAB BLOOD ORDERABLES Final Result TARIK MH [address] [facility] [place] [address] * Dexa Axial Skeleton Bone Density 1 or 2 Site (08/19/2024 1:58 PM CDT) Anatomical Region Laterality Modality Body N/A Mammography 08/19/2024 8:43 PM CDT Narrative 08/19/2024 8:59 PM CDT EXAM DESCRIPTION: DEXA AXIAL SKELETON BONE DENSITY 1 OR MORE SITES REASON FOR STUDY: 84 y/o year old F with given history of: low bone mass, on AI therapy + bisphosphonate therapy. Line Tender/Model: [employer] (S/N [id number]) Facility LSC value of 0.022 for the AP spine, 0.027 for the femur, and 0.023 for the forearm. CLINICAL INFORMATION: Current height: 62 inches Maximum height: 63 inches Weight: 141 pounds Risk factors: Postmenopausal, cancer COMPARISON: 08/18/2022 FINDINGS: AP LUMBAR SPINE L1-L4: Total BMD is 0.811 g/cm2 T-score is -2.1 This is decreased in comparison to prior exam which is not statistically significant. LEFT HIP: Total BMD is 0.890 g/cm2 T-score is -0.4 This is decreased in comparison to prior exam which is not statistically significant. Femoral neck BMD is 0.649 g/cm2 T-score is -1.8 FRAX: 10 year risk for a major osteoporotic fracture is 15 %, 10 year risk for a hip fracture is 4.1 % Per National Osteoporosis Foundation guidelines, this patient does meet the criteria for pharmacological treatment of patients with FRAX 10 year major osteoporotic fracture risk scores of = or greater than 20% or a 10 year probability of a hip fracture = or greater than 3%, to reduce fracture risk. Additional factors such as frequent falls are not represented in FRAX and warrant individual clinical judgment. IMPRESSION: 1. Low Bone Mass. REFERENCE: Bone mineral density: T-Score: Normal (T-score above or = -1.0) Low bone mass (T-score between -1.0 and -2.5) replaces the previously used term osteopenia Osteoporosis (T-score = or below -2.5) Z-Score: Within the expected range for age (Z-score above -2.0) Below the expected range for age (Z-score is -2.0 or below) Please see below follow up recommendations. Medical evaluation for secondary causes of low bone mineral density may be appropriate. FRAX is a World Health Organization validated fracture risk assessment tool that calculates a person's 10 year probability of a major osteoporosis related fracture and hip fracture. According to the National Osteoporosis Foundation guidelines, postmenopausal women and men age 50 or older with low bone mass and a 10 year probability of a major osteoporosis related fracture = or greater than 20% or a 10 year probability of a hip fracture = or greater than 3% should be considered for pharmacological treatment for the prevention of osteoporosis. For further information, including treatment recommendations, please refer to the 2019 ISCD Official Positions (http://www.iscd.org) and the NOF's Clinician's Guide to Prevention and Treatment of Osteoporosis (http://www.nof.org/professionals/clinical-guidelines) THIS IS AN ELECTRONICALLY VERIFIED FINAL REPORT 08/19/2024 8:59 PM - Electronically signed by Darrius Leblanc M.D. MF: [id number] Report ID: [id number] Reading Location: [place] [address] Procedure Note Darrius Leblanc MD - 08/19/2024 EXAM DESCRIPTION: DEXA AXIAL SKELETON BONE DENSITY 1 OR MORE SITES REASON FOR STUDY: 84 y/o year old F with given history of: low bonemass, on AI therapy + bisphosphonate therapy. Line Tender/Model: [employer] (S/N [id number]) Facility LSC value of 0.022 for the AP spine, 0.027 for the femur, and0.023 for the forearm. CLINICAL INFORMATION: Current height: 62 inches Maximum height: 63 inches Weight: 141 pounds Risk factors: Postmenopausal, cancer COMPARISON: 08/18/2022 FINDINGS: AP LUMBAR SPINE L1-L4: Total BMD is 0.811 g/cm2 T-score is -2.1 This is decreased in comparison to prior exam which is not statistically significant. LEFT HIP: Total BMD is 0.890 g/cm2 T-score is -0.4 This is decreased in comparison to prior exam which is not statistically significant. Femoral neck BMD is 0.649 g/cm2 T-score is -1.8 FRAX: 10 year risk for a major osteoporotic fracture is 15 %, 10 year risk for ahip fracture is 4.1 % Per National Osteoporosis Foundation guidelines, this patient does meetthe criteria for pharmacological treatment of patients with FRAX 10 year major osteoporotic fracture risk scores of = or greater than 20% or a 10 year probability of a hip fracture = or greater than 3%, to reduce fracturerisk. Additional factors such as frequent falls are not represented in FRAX and warrant individual clinical judgment. IMPRESSION: 1. Low Bone Mass. REFERENCE: Bone mineral density: T-Score: Normal (T-score above or = -1.0) Low bone mass (T-score between -1.0 and -2.5) replaces thepreviously used term osteopenia Osteoporosis (T-score = or below -2.5) Z-Score: Within the expected range for age (Z-score above -2.0) Below the expected range for age (Z-score is -2.0 or below) Please see below follow up recommendations. Medical evaluation forsecondary causes of low bone mineral density may be appropriate. FRAX is a World Health Organization validated fracture risk assessmenttool that calculates a person's 10 year probability of a major osteoporosisrelated fracture and hip fracture. According to the National OsteoporosisFoundation guidelines, postmenopausal women and men age 50 or older with low bonemass and a 10 year probability of a major osteoporosis related fracture = or greater than 20% or a 10 year probability of a hip fracture = or greaterthan 3% should be considered for pharmacological treatment for the preventionof osteoporosis. For further information, including treatment recommendations, please referto the 2019 ISCD Official Positions (http://www.iscd.org) and the NOF's Clinician's Guide to Prevention and Treatment of Osteoporosis (http://www.nof.org/professionals/clinical-guidelines) THIS IS AN ELECTRONICALLY VERIFIED FINAL REPORT 08/19/2024 8:59 PM - Electronically signed by Darrius Leblanc M.D. MF: NELLY Report ID: [id number] Reading Location: [id number] Fany Argueta NP IMG DXA PROCEDURES F inal Result * (ABNORMAL) Albumin Creatinine Ratio, Urine (06/30/2023 2:06 PM CDT) Albumin Ur 264.6 mg/L Comment: Interpretive Data No reference range established. Current interpretive data was last revised 2018. Testing performed by: [address] [address] Creatinine Ur 117.7 mg/dL TARIK Comment: Interpretive Data No reference range established. Current interpretive data was last revised 2018. Testing performed by: [address] [address] Albumin Creatinine Ratio, Ur 225(H) 1 - 29 mg/g TARIK Comment:Testing performed by : [address] [address] Urine 06/30/2023 2:06 PM CDT 06/30/2023 3:59 PM CDT Samir Red MD LAB URINE ORDERABLES Final Result TARIK [address] [facility] [place] [address] * (ABNORMAL) Hemoglobin A1c (06/30/2023 2:05 PM CDT) Pathologist [facility] Hgb A1C 5.9(H) 4.0 - 5.6 % Comment:Testing performed by : [address] [address] Estimated Average Glucose 123 mg/dL TARIK Comment: The ADA recommends reporting an estimated Average Glucose (eAG) with all Hemoglobin A1c results using the equation derived from a study of 507 normal and diabetic adults. Minority populations were underrepresented and children were not included. (Diabetes Care 31:8337-1991, 2008). The eAG is not equivalent to a fasting glucose. Testing performed by: [address] [address] Blood 06/30/2023 2:05 PM CDT 06/30/2023 3:59 PM CDT Samir Red MD LAB BLOOD ORDERABLES Final Result TARIK [address] [facility] [place] [address] * (ABNORMAL) Lipid panel (06/30/2023 2:05 PM CDT) Cholesterol 219(H) 30 - 199 mg/dL Comment: Interpretive Data Ages < or = 19 years Acceptable: <170 mg/dL Borderline high: 170-199 mg/dL High: >or= 200 mg/dL Ages > or = 20 years Desirable: <200 mg/dL Borderline high: 200-239 mg/dL High: >or= 240 mg/dL Literature References: 1. Expert Panel on Integrated Guidelines for Cardiovascular Health and Risk Reduction in Children and Adolescents. Pediatrics 2011;128:S213 2. NCEP Expert Panel. Circulation 2004;110:227 Current Interpretive Data was last revised on 2017. Testing performed by: [address] [address] Triglycerides 192(H) <=149 mg/dL TARIK Comment: Interpretive Data Ages < or = 9 years Acceptable: <75 mg/dL Borderline high: 75-99 mg/dL High: >or= 100 mg/dL Ages 10 to 20 years Acceptable: <90 mg/dL Borderline high: 90-129 mg/dL High: >or= 130 mg/dL Ages > or = 20 years Desirable: <150 mg/dL Borderline high: 150-199 mg/dL High: 200-499 mg/dL Very high: >or= 499 mg/dL Literature References: 1. Expert Panel on Integrated Guidelines for Cardiovascular Health and Risk Reduction in Children and Adolescents. Pediatrics 2011;128:S213 2. NCEP Expert Panel. Circulation 2004;110:227 Current Interpretive Data was last revised on 2017. Testing performed by: [address] [address] HDL 44 >=40 mg/dL TARIK Comment: Interpretive Data Ages < or = 19 years Acceptable: >45 mg/dL Borderline low: 40-45 mg/dL Low: <40 mg/dL Ages > or = 20 years Desirable: >or= 60 mg/dL Low: <40 mg/dL Literature References: 1. Expert Panel on Integrated Guidelines for Cardiovascular Health and Risk Reduction in Children and Adolescents. Pediatrics 2011;128:S213 2. NCEP Expert Panel. Circulation 2004;110:227 Current Interpretive Data was last revised on 2017. Testing performed by: [address] [address] LDL, calculated 137(H) <=129 mg/dL TARIK Comment: Interpretive Data Ages < or = 19 years Acceptable: <110 mg/dL Borderline high: 110-129 mg/dL High: >or= 130 mg/dL Ages > or = 20 years Optimal: <100 mg/dL Near optimal: 100-129 mg/dL Borderline high: 130-159 mg/dL High: >160 mg/dL Literature References: 1. Expert Panel on Integrated Guidelines for Cardiovascular Health and Risk Reduction in Children and Adolescents. Pediatrics 2011;128:S213 2. NCEP Expert Panel. Circulation 2004;110:227 Current Interpretive Data was last revised on 2017. Testing performed by: [address] [address] Non-HDL Cholesterol 175 mg/dL TARIK Comment: Interpretive Data Ages < or = 19 years Acceptable: <120 mg/dL Borderline high: 120-144 mg/dL High: >145 mg/dL Ages > or = 20 years When triglycerides are >200 mg/dL, Non-HDL cholesterol is a secondary target of therapy with treatment goals that are 30 mg/dL greater than the LDL cholesterol target. Literature References: 1. Expert Panel on Integrated Guidelines for Cardiovascular Health and Risk Reduction in Children and Adolescents. Pediatrics 2011;128:S213 2. NCEP Expert Panel. Circulation 2004;110:227 Current Interpretive Data was last revised on 2017. Testing performed by: [address] [address] Chol/HDL ratio 5 TARIK Comment:Testing performed by : [address] [address] Blood 06/30/2023 2:05 PM CDT 06/30/2023 3:59 PM CDT Samir Red MD LAB BLOOD ORDERABLES Final Result AMINATANER [facility] [address] [facility] [place] [address] from Last 3 Months or Most Recently Relevant to Health Maintenance Insurance MEDICARE [facility]LY [facility] MEDICARE SUPPLEMENT INSURANCE MEDICARE COMMERCIAL GENERIC FORMERLY [facility] MEDICARE SUPPLEMENT INSURANCE [facility]IC[facility]PPLE[facility] INSURANCE MARGARET SANCHEZ [id number] Care Teams Appliquer Relationship Specialty Start Date End Date Samir Red MD [address] [facility] [address] [facility] [address] [place] [address] PCP - General Internal Medicine 06/08/22 Vinita Greenwood MD [address] [address] Surgeon Surgical Oncology 02/08/22 Fany Argueta NP [address] [place] [address] [address] [place] [address] Nurse Practitioner Medical Oncology 02/01/23 Ayan Bryant MD [address] [place] [address] [address] [place] [address] Radiation Oncologist Radiation Oncology 10/17/23
--- OUTSIDE RECORDS SUMMARY | 2025-01-15 12:15 | XMS_ITS | Encounter Summary ---
Author Organization [facility] Address [address] [facility] [place] [address] Care Team Providers Care Air Twist Operator Name Role Phone Unavailable Primary Care Provider Unavailabl e Encounter Details Date Type Department Care Team (Late st Contact Info) Description 02/27/2018 Lab Requisition [facility] [address] [facility], [place] [address] Nneka Perez MD [address] [facility] 3 [place] [address] Social History Tobacco Use Types Packs/Day Years Used Date Smoking Tobacco: Never Assessed Comments Unknown Sex and Gender Information Value Date Recorded Sex Assigned at Not on file 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 Gender Identity Not on file Sexual Orientation Not on file documented as of this encounter Plan of Treatment Not on file documented as of this encounter Procedures Procedure Name Priority Date/Time Associated Diagnosis Comments DERMATOPATH TECHNICAL REPORT Routine 02/26/2018 12:00 AM EQUIPMENT MAINTENANCE TECHNICIAN documented in this encounter Results * DERMATOPATH TECHNICAL REPORT (02/26/2018 12:00 AM EQUIPMENT MAINTENANCE TECHNICIAN) Case Report Dermatopathology Report Case: [id number] Authorizing Provider: Nneka Perez MD Collected: 02/26/2018 12:00 AM Pathologist: Jay Abel MD Received: 02/27/2018 06:56 AM Specimen: Skin, right upper arm 9 11:14 AM EQUIPMENT MAINTENANCE TECHNICIAN DERMATOPATHOLOGY LABORATORY Clinical History R/O ISK vs SCC-KA vs other. Irritated, non-healing, painful. 9 11:14 AM EQUIPMENT MAINTENANCE TECHNICIAN DERMATOPATHOLOGY LABORATORY Gross Description Specimen A: Received is one formalin filled container labeled with the patient's name and designated right upper arm. The specimen consists of a shave measuring [id number], bisected. Jar 0. [facility] Dermatopathology Laboratory performed the technical component only. 11:14 AM [facility] DERMATOPATHOLOGY LABORATORY Embedded Images 11:14 AM [facility] DERMATOPATHOLOGY LABORATORY DISCLAIMER An external and internal positive and negative controls are appropriate for the histochemical, immunohistochemical and immunofluorescence stain(s) in this case (if any), except where stated explicitly. The performance characteristics of the stain(s) cited in this report were developed and its performance characteristic determined by the Dermatopathology Laboratory at [facility]. These tests need not be, and therefore are not, approved by the [place] Food and Drug Administration. The tests are used for clinical purposes. 11:14 AM [facility] DERMATOPATHOLOGY LABORATORY at 1114 EQUIPMENT MAINTENANCE TECHNICIAN Pathology/Cytolog y TISSUE SPECIMEN FROM SKIN / Unknown 02/26/2018 02/27/2018 6:56 AM EQUIPMENT MAINTENANCE TECHNICIAN us Nneka Perez MD LAB - PATHOLOGY/CYTOLOGY OR DERABLES Final Result DERMATOPATHOLOGY LABORATORY [facility] - Department of Dermatology [address] [facility] [place] [address], [facility] [phone] documented in this encounter Visit Diagnoses Not on filedocumented in this encounter
--- OUTSIDE RECORDS SUMMARY | 2025-01-15 12:15 | XMS_ITS ---
Author Organization [facility] Address [address] [place] [address] Care Team Providers Care Safety Pin Assembling Machine Operator Name Role Phone Vinita Greenwood MD Unavailable Samir Red MD Primary Care Provider [phone] Fany Argueta NP Unavailable [phone]- [phone] Ayan Bryant MD Unavailable [phone] Active Problems Problem Noted Date Diagnosed Date Vitamin D deficiency 01/02/2025 Low bone mass 07/13/2023 half-way (current) use of aromatase inhibitors 06/30/2023 Postmenopausal [...] from 11/08/2021:Stage IA(pT1b, pN0(sn), cM0, G3, ER+, UT+, HER2-) - Signed by Ayan Bryant MD [...] Medications Current Day (Day 1 , Cycle 3 - Planned for 07/04/2025) Next Day (Day 1, Cycle 4 - Planned for 01/02/2026) No medications scheduled. No medications schedul ed. No medications scheduled. 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
--- OUTSIDE RECORDS SUMMARY | 2025-01-15 12:15 | XMS_ITS | Encounter Summary ---
Author Organization [facility] Address [address] [facility] [place] [address] Care Team Providers Care Carbon Paper Coating Supervisor Name Role Phone Unavailable Primary Care Provider Unavailabl e Encounter Details Date Type Department Care Team (Late st Contact Info) Description 11/15/2018 Lab Requisition [facility] DermPath Lab [address] [facility] [place] [address] Nneka Perez MD [address] [facility] 3 [place] [address] Social History Tobacco Use Types Packs/Day Years Used Date Smoking Tobacco: Never Assessed Comments Unknown Sex and Gender Information Value Date Recorded Sex Assigned at Not on file 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 Sex 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 Gender Identity Not on file Sexual Orientation Not on file documented as of this encounter Plan of Treatment Not on file documented as of this encounter Procedures Procedure Name Priority Date/Time Associated Diagnosis Comments DERMATOPATHOLOGY Routine 11/14/2018 12:0 0 AM CDT documented in this encounter Results * DERMATOPATHOLOGY (11/14/2018 12:00 AM CDT) Case Report Dermatopathology Report Case: [id number] Authorizing Provider: Nneka Perez MD Collected: 11/14/2018 12:00 AM Ordering Location: [facility] Care DermPath Lab Received: 11/15/2018 06:37 AM [...] of a non-oriented ellipse of skin measuring [id number]. The epidermal surface consists of a centrally [...] characteristic determined by the Dermatopathology Laboratory at [facility], directed by Dr. Brie Abel. These tests need not be, and therefore are not, approved by the [place] Food and Drug Administration. The tests are used for clinical purposes. Billing Codes Specimen Charges Stain Charges 36693 1 12:37 PM CDT DERMATOPATHOLOGY LABORATORY Embedded Images 12:37 PM CDT DERMATOPATHOLOGY LABORATORY Pathology/Cytolog y TISSUE SPECIMEN FROM SKIN / Unknown 11/14/2018 11/15/2018 6:37 AM CDT Nneka Perez MD LAB - PATHOLOGY/CYTOLOGY OR DERABLES Final Result DERMATOPATHOLOGY LABORATORY [facility] - Department of Dermatology [address] [place] [address] 5th Floor Lab [address] [phone] documented in this encounter Visit Diagnoses Not on filedocumented in this encounter
--- OUTSIDE RECORDS SUMMARY | 2025-01-15 12:15 | XMS_ITS | Clinical Summary ---
Author Organization [facility] Address [address] [facility] [place] [address] Care Team Providers Care Header Set Up Operator Name Role Phone Unavailable Primary Care Provider Unavailabl e Source Comments [facility],non-owned Affiliates and Associated Physician Practices is amultiple site organization consisting of ambulatory clinics and hospital sitesin [place], [place], [place] and [place]. This disclosure is being madepursuant to the Care Everywhere program and may not contain all information available regarding this patient. Last updated 17.[facility] [employer] Allergies No known active allergies Immunizations Immunization Administration Dates Next Due INFLUENZA VACCINE, HIGH-DOSE , QUADR. (FLUZONE HIGH-DOSE QUADRIVALENT; 65Y+), 0.7 ML (HD-IIV4) 11/27/2018 Social History Tobacco Use Types Packs/Day Years Used Date Smoking Tobacco: Never Assessed Comments Unknown Sex and Gender Information Value Date Recorded Sex Assigned at Not on file Legal Sex Female 5:31 PM REPLENISHMENT BUYER Gender Identity Not on file Sexual Orientation Not on file Plan of Treatment Health Maintenance Due Date Last Done Comments BONE DENSITY TESTING 1942 DTAP/TDAP/TD VACCINES (1 - Tdap) 1961 PNEUMOCOCCAL VACCINE 50+ (1 of 1 - PCV) 01/25/1992 ZOSTER VACCINE (1 of 2) 01/25/1992 Respiratory Syncytial Virus (RSV) Vaccine Pt: or over 60 yrs (1 - 1-dose 75+ series) 2017 DEPRESSION SCREENING 02/21/2024 COVID-19 VACCINE (1 - 2024-2 6 season) 2024 INFLUENZA VACCINE (#1) 2024 11/27/2018 HEPATITIS B [...] to complete this topic Insurance MEDICARE MEDICARE MAPPING
--- OUTSIDE RECORDS SUMMARY | 2025-01-15 12:37 | XMS_ITS | Clinical Summary ---
Author Organization [facility] Address [address] [place] [address] Care Team Providers Care Preforms Laminator Name Role Phone Vinita Greenwood MD Unavailable [phone] Samir Red MD Primary Care Provider [phone] Fany Argueta NP Unavailable [phone] Ayan Bryant MD Unavailable [phone] Allergies Active Allergy Reactions Criticality Noted [...] D deficiency 01/02/2025 Low bone mass 07/13/2023 terminologist (current) use of aromatase inhibitors 06/30/2023 Postmenopausal [...] from 11/08/2021:Stage IA(pT1b, pN0(sn), cM0, G3, ER+, NH+, HER2-) - Signed by Ayan Bryant MD [...] Department Care Team Description 01/03/2025 1:30 PM VENEER SAWYER Infusion [facility] at [address] [address] terminologist (current) use of aromatase inhibitors (Primary Dx); Malignant neoplasm of upper-outer quadrant of right breast in female, estrogen receptor positive (HCC); Postmenopausal osteoporosis; Low bone mass 01/03/2025 1:00 PM VENEER SAWYER Office Visit [facility] [facility] [address] [place] [address] Fany Argueta NP Postmenopausal osteoporosis (Primary Dx); terminologist (current) use of aromatase inhibitors; Malignant neoplasm of upper-outer quadrant of right breast in female, estrogen receptor positive (HCC); History of breast cancer; Low bone mass 01/03/2025 12:30 PM VENEER SAWYER Lab [facility] at [address] [address] Malignant neoplasm of upper-outer quadrant of right breast in female, estrogen receptor positive (HCC); Postmenopausal osteoporosis; Low bone mass; terminologist (current) use of aromatase inhibitors from Last [...] RECONSTRUCTION BREAST IMMEDIATE / 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 02/21/2012 - 02/19/2013 Left BREAST BIOPSY 09/28/2021 [...] t dx Breast cancer Paternal Grandmother untrea mery Anesthesia problems Neg Hx Relation Name Status [...] Friends and Family Patient declined 08/02/2018 Attends Alevism Services Patient declined 07/21 Active Member of Clubs or Organizations Patient declined 08/02/2018 Attends Club or Organization Meetings Patient de clined 08/02/2018 Marital Status Patient declined 08/02/2018 Overall Financial Resource Strain (CARDIA) Answe r Date Recorded Difficulty of Paying Living Expenses Patient dec lined 08/02/2018 [facility] - Occupational Stress [...] on file Legal Sex Female 3:58 AM VENEER SAWYER Gender Identity Not on file Sexual Orientation Not on file 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 on file Not on file Not on fi le Last Filed Vital Signs Vital Sign Reading Time Taken Comments Blood Pressure 120/77 01/03/2025 1:24 PM VENEER SAWYER Pulse 88 01/03/2025 1:24 PM VENEER SAWYER Temperature 36.7 C (98.1 F) 01/03/2025 1:24 PM VENEER SAWYER Respiratory Rate 18 01/03/2025 1:24 PM VENEER SAWYER Oxygen Saturation 96% 01/03/2025 1:24 PM VENEER SAWYER Inhaled Oxygen Concentration - - Weight 62.8 kg (138 lb 7.2 oz) 01/03/2025 1:24 P M VENEER SAWYER Height 157.5 cm (5' 2.01) 07/12/2024 2:12 [...] 03/17/2023, 01/06/2023 Medical Devices Implanted Type Area Women'S Garment Fitter Device Identifier Shelf Expiration Date Model / Serial / Lot Locappy Magseed 18ga 7cm Marker Breast Biopsy [id number] - [id number] Implanted:Qty : 1 on 11/04/2021 at [facility] Right: Breast [employer] [id number] 05/20/2025 [id number] Procedures Procedure Name Priority Date/Time Associated Diagnosis Comments EGFR STAT 01/03/2025 1:09 PM VENEER SAWYER Malignant neoplasm of upper-outer quadrant of right breast in female, estrogen receptor positive (HCC) Postmenopausal osteoporosis Low bone mass terminologist (current) use of aromatase inhibitors DIFFERENTIAL AUTO Routine 01/03/2025 1:0 9 PM VENEER SAWYER Malignant neoplasm of upper-outer quadrant of right breast in female, estrogen receptor positive (HCC) Postmenopausal osteoporosis Low bone mass terminologist (current) use of aromatase inhibitors CBC WITH AUTO DIFFERENTIAL Routine 01/03/2025 1:09 PM VENEER SAWYER Malignant neoplasm of upper-outer quadrant of right breast in female, estrogen receptor positive (HCC) Postmenopausal osteoporosis Low bone mass MCC (current) use of aromatase inhibitors COMPREHENSIVE METABOLIC PANEL STAT 01/03/2025 1:09 PM VENEER SAWYER Malignant neoplasm of upper-outer quadrant of right breast in female, estrogen receptor positive (HCC) Postmenopausal osteoporosis Low bone mass terminologist (current) use of aromatase inhibitors VITAMIN D 25 HYDROXY Routine 01/03/2025 1:09 PM VENEER SAWYER Malignant neoplasm of upper-outer quadrant of right breast in female, estrogen receptor positive (HCC) Postmenopausal osteoporosis Low bone mass terminologist (current) use of aromatase inhibitors DEXA AXIAL SKELETON BONE DENSITY 1 OR MORE SITES Schedule Routine, Read Routine (OP Routine) 08/19/2024 1:58 PM CDT terminologist (current) use of aromatase inhibitors Low bone mass Encounter for osteoporosis screening in asymptomatic postmenopausal patient ALBUMIN CREATININE RATIO, URINE Routine 06/30/2023 2:06 PM CDT HEMOGLOBIN A1C Routine 06/30/2023 2:05 PM CDT LIPID PANEL Routine 06/30/2023 2:05 PM CDT from Last 3 Months or Most Recently Relevant to Health Maintenance Results * eGFR (01/03/2025 1:09 PM VENEER SAWYER) eGFR 86 >=60 mL/min/1. 73 m2 Comment: [...] was last reviewed 2020. Testing performed by: [facility], [address] [place] [address]., [address] Blood 01/03/2025 1:09 PM VENEER SAWYER 01/03/2025 1:15 PM VENEER SAWYER us Fany Argueta NP LAB BLOOD ORDERABLES Final Result TARIK [address] [facility] Department [place] [address] * Differential, auto (01/03/2025 1:09 PM VENEER SAWYER) Neutrophil abs 4.74 1.50 - 6.50 K/cumm Comment:Testing performed by : [address] [address] Imm gran abs 0.01 0.00 - 0.10 K/cumm TARIK Comment:Testing performed by : [address] [address] Lymphocyte abs 3.05 0.80 - 3.30 K/cumm [facility] Comment:Testing performed by : [address] [address] Monocyte abs 0.50 0.20 - 0.80 K/cumm [facility] Comment:Testing performed by : [address] [address] Eosinophil abs 0.09 0.00 - 0.50 K/cumm [facility] Comment:Testing performed by : [address] [address] Basophil abs 0.03 0.00 - 0.10 K/cumm [facility] Comment:Testing performed by : [address] [address] Neutrophil pct 56.3 % [facility] Comment: Interpretive Data Percent cell count reference ranges are not reported, since discordance with absolute values may lead to misinterpretation of CBC data. Current Interpretive Data was last revised on 2017. Testing performed by: [address] [address] Imm gran pct 0.1 % [facility] Comment: Interpretive Data Percent cell count reference ranges are not reported, since discordance with absolute values may lead to misinterpretation of CBC data. Current Interpretive Data was last revised on 2017. Testing performed by: [address] [address] Lymphocyte pct 36.2 % [facility] Comment: Interpretive Data Percent cell count reference ranges are not reported, since discordance with absolute values may lead to misinterpretation of CBC data. Current Interpretive Data was last revised on 2017. Testing performed by: [address] [place]., [address] Monocyte pct 5.9 % TARIK Comment: Interpretive Data Percent cell count reference ranges are not reported, since discordance with absolute values may lead to misinterpretation of CBC data. Current Interpretive Data was last revised on 2017. Testing performed by: [address] [address] Eosinophil pct 1.1 % TARIK LEVINE Comment: Interpretive Data Percent cell count reference ranges are not reported, since discordance with absolute values may lead to misinterpretation of CBC data. Current Interpretive Data was last revised on 2017. Testing performed by: [address] [address] Basophil pct 0.4 % TARIK Comment: Interpretive Data Percent cell count reference ranges are not reported, since discordance with absolute values may lead to misinterpretation of CBC data. Current Interpretive Data was last revised on 2017. Testing performed by: [address] [address] Blood 01/03/2025 1:09 PM VENEER SAWYER 01/03/2025 1:15 PM VENEER SAWYER Fany Argueta ECHOMETER ENGINEER LAB BLOOD ORDERABLES Final Result TARIK [address] [facility] Department [place] [address] * CBC with auto differential (01/03/2025 1:09 PM VENEER SAWYER) WBC 8.42 3.80 - 9.90 K/cumm Comment:Testing performed by : [address] [address] Hgb 12.8 11.9 - 15.5 g/dL TARIK LEVINE Comment:Testing performed by : [address] [address] Hct 36.8 35.6 - 45.5 % TARIK LEVINE Comment:Testing performed by : [address] [address] Plt 275 150 - 400 K/cumm TARIK LEVINE Comment:Testing performed by : [address] [address] MPV 10.3 9.1 - 12.3 fL TARIK Comment:Testing performed by : [address] [address] RBC 4.26 3.90 - 5.20 M/cumm TARIK Comment:Testing performed by : [address] [address] MCV 86.4 81.3 - 96.4 fL TARIK Comment:Testing performed by : [address] [address] MCH 30.0 27.1 - 33.3 pg TARIK Comment:Testing performed by : [address] [address] MCHC 34.8 32.3 - 35.7 g/dL TARIK Comment:Testing performed by : [address], [address] RDW CV 12.8 11.1 - 14.9 % TARIK Comment:Testing performed by : [address], [address] RDW SD 39.9 35.7 - 48.1 fL TARIK Comment:Testing performed by : [address], [address] NRBC abs 0.00 0.00 - 0.01 K/cumm TARIK Comment:Testing performed by : [address] [address] ANC Prelim 4.74 1.50 - 6.50 K/cumm TARIK Comment: Interpretive Data The rapid ANC is a preliminary automated count and may vary from the final ANC (Neut Abs) reported in the WBC differential that follows. Current interpretive data was last revised 2024. Testing performed by: [address] [address] Blood 01/03/2025 1:09 PM VENEER SAWYER 01/03/2025 1:15 PM VENEER SAWYER Fany Tsangk ECHOMETER ENGINEER LAB BLOOD ORDERABLES Final Result TARIK [address] [facility] [place] [address] * Vitamin D 25 hydroxy (01/03/2025 1:09 PM VENEER SAWYER) [facility] Vitamin D 25-OH 60.0 30.0 - 80.0 ng/mL Blood 01/03/2025 1:09 PM VENEER SAWYER 01/03/2025 4:24 PM VENEER SAWYER Fany Espinoza Kendall ECHOMETER ENGINEER LAB BLOOD ORDERABLES Final Result Performing Organization Address [facility] Co de Phone Number TARIK [address] [facility] [place] [address] * Comprehensive metabolic panel (01/03/2025 1:09 PM VENEER SAWYER) [facility] Sodium 141 135 - 145 mmol/L Comment:Testing performed by : [address] [address] Potassium, pl 3.8 3.3 - 4.9 mmol/L TARIK Comment:Testing performed by : [address] [address] Chloride 104 97 - 110 mmol/L TARIK Comment:Testing performed by : [address] [address] CO2 24 22 - 32 mmol/L TARIK Comment:Testing performed by : [address] [address] Anion gap 13 2 - 15 mmol/L TARIK Comment:Testing performed by : [address] [address] BUN 21 6 - 25 mg/dL TARIK Comment:Testing performed by : [address] [address] Creatinine 0.70 0.60 - 1.10 mg/dL TARIK Comment:Testing performed by : [address] [address] Glucose 169 70 - 199 mg/dL TARIK [...] was last revised 2022. Testing performed by: [address] [address] Calcium 9.5 8.5 - 10.3 mg/dL TARIK Comment:Testing performed by : [address] [address] Bilirubin, total 0.4 0.1 - 1.2 mg/dL TARIK Comment:Testing performed by : [address] [address] Protein, pl 7.0 6.5 - 8.5 g/dL TARIK Comment:Testing performed by : [address] [address] Albumin 4.2 3.5 - 5.0 g/dL TARIK Comment:Testing performed by : [address] [address] Alk phos 67 40 - 130 Units/L TARIK Comment:Testing performed by : [address] [address] ALT 12 7 - 45 Units/L TARIK Comment:Testing performed by : [address] [address] AST 19 10 - 45 Units/L TARIK Comment:Testing performed by : [address] [address] Blood 01/03/2025 1:09 PM VENEER SAWYER 01/03/2025 1:15 PM VENEER SAWYER us Fany Argueta ECHOMETER ENGINEER LAB BLOOD ORDERABLES Final Result TARIK MH [address] [facility] Department [place] [address] * Dexa Axial Skeleton Bone Density 1 or 2 Site (08/19/2024 1:58 PM CDT) Anatomical Region Laterality Modality Body N/A Mammography 08/19/2024 8:43 PM CDT Narrative 08/19/2024 8:59 PM CDT EXAM DESCRIPTION: DEXA AXIAL SKELETON BONE DENSITY 1 OR MORE SITES REASON FOR STUDY: 84 y/o year old F with given history of: low bone mass, on AI therapy + bisphosphonate therapy. 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 MF: NELLY Report ID: [id number] Reading Location: [place] [address] Procedure Note Darrius Leblanc MD - 08/19/2024 EXAM DESCRIPTION: DEXA AXIAL SKELETON BONE DENSITY 1 OR MORE SITES REASON FOR STUDY: 84 y/o year old F with given history of: low bonemass, on AI therapy + bisphosphonate therapy. Women'S Garment Fitter/Model: [employer] (S/N [id number]) Facility LSC value of 0.022 for the [...] Darrius Leblanc M.D. MF: NELLY Report ID: [id number] Reading Location: [id number] Fany Argueta NP IMG DXA PROCEDURES F inal Result * (ABNORMAL) Albumin Creatinine Ratio, Urine (06/30/2023 2:06 PM CDT) Albumin Ur 264.6 mg/L Comment: Interpretive Data No reference range established. Current interpretive data was last revised 2018. Testing performed by: [address] [address] Creatinine Ur 117.7 mg/dL TARIK Comment: Interpretive Data No reference range established. Current interpretive data was last revised 2018. Testing performed by: [address] [address] Albumin Creatinine Ratio, Ur 225(H) 1 - 29 mg/g TARIK Comment:Testing performed by : [address] [address] Urine 06/30/2023 2:06 PM CDT 06/30/2023 3:59 PM CDT Samir Red MD LAB URINE ORDERABLES Final Result TARIK [address] [facility] Department [place] [address] * (ABNORMAL) Hemoglobin A1c (06/30/2023 2:05 PM CDT) Pathologist [facility] Hgb A1C 5.9(H) 4.0 - 5.6 % Comment:Testing performed by : [address] [address] Estimated Average Glucose 123 mg/dL TARIK Comment: The ADA recommends reporting an estimated Average Glucose (eAG) with all Hemoglobin A1c results using the equation derived from a study of 507 normal and diabetic adults. Minority populations were underrepresented and children were not included. (Diabetes Care 31:3580-6833, 2008). The eAG is not equivalent to a fasting glucose. Testing performed by: [address] [address] Blood 06/30/2023 2:05 PM CDT 06/30/2023 3:59 PM CDT Samir Red MD LAB BLOOD ORDERABLES Final Result TARIK [address] [facility] Department [place] [address] * (ABNORMAL) Lipid panel (06/30/2023 2:05 PM [...] last revised on 2017. Testing performed by: [address] [address] Triglycerides 192(H) <=149 mg/dL TARIK Comment: Interpretive [...] last revised on 2017. Testing performed by: [address] [address] HDL 44 >=40 mg/dL TARIK Comment: Interpretive [...] last revised on 2017. Testing performed by: [address] [address] LDL, calculated 137(H) <=129 mg/dL TARIK Comment: [...] last revised on 2017. Testing performed by: [address] [address] Non-HDL Cholesterol 175 mg/dL TARIK Comment: Interpretive [...] last revised on 2017. Testing performed by: [address] [address] Chol/HDL ratio 5 TARIK Comment:Testing performed by : [address] [address] Blood 06/30/2023 2:05 PM CDT 06/30/2023 3:59 PM CDT Samir Red MD LAB BLOOD ORDERABLES Final Result AMINATANER MH [address] [facility] Department [place] [address] from Last 3 Months or Most Recently Relevant to Health Maintenance Insurance MEDICARE [facility] Address: [address] [address] [facility] MEDICARE SUPPLEMENT INSURANCE MEDICARE COMMERCIAL GENERIC [facility] MEDICARE SUPPLEMENT INS[facility] SUPPLE[facility] INSURANCE [place] [id number] Care Teams Preforms Laminator Relationship Specialty Start Date End Date Samir Red MD [address] [facility] [address] [facility] [address] [place] [address] PCP - General Internal Medicine 06/08/22 Vinita Greenwood MD [address] [address] Surgeon Surgical Oncology 02/08/22 Fany Argueta NP [address] [place] [address] [address] [place] [address] Nurse Practitioner Medical Oncology 02/01/23 Ayan Bryant MD [address] [place] [address] [address] [place] [address] Radiation Oncologist Radiation Oncology 10/17/23
--- OUTSIDE RECORDS SUMMARY | 2025-01-15 12:37 | XMS_ITS | Data Portability ---
Author Organization [place] - [facility], [facility] Address [address] [facility] [address] [place] [address] Assessment Encounter Date Assessment Date Assessment LastModified by Organization Details LastModified Time 03/06/2024 03/06/2024 Patient presente d to office today for their Medicare Annual Wellness Visit. Education was provided on healthy nutrition, including a diet rich in fruits and vegetables, minimizing simple carbohydrates, salt, and saturated fats. Encouraged regular cardiovascular exercise such as walking at least 30 minutes daily, 5 times per week. Emphasized preventive health measures and educated pt on fall prevention and community-based lifestyle interventions to help reduce health risks and promote healthy living. [email or web address] Not available 03/06/2024 11:11:40 Plan of Treatment Reminders Order Date Submit Date Provider Last Modified By Organization Details Last Modified Time Details Appointments Follow Up 15 2025 10:00A M Samir Red MD Not available Not available Not available Lab urinalysi s, complete 2024 025 [facility] (Lab), [address] [place] [address], [phone], 10/24/2024 04:03:41 glucose, fasting, QN, serum or plasma 2024 025 [facility] (Lab), [address] [place] [address], [id number], 10/24/2024 04:03:42 CMP, serum or plasma 2024 025 [facility] (Lab), [address] [place] [address], [phone], 10/24/2024 04:03:42 lipid panel, blood 2024 025 [facility] ([facility]), [facility] [address], [place], [address], 10/24/2024 04:03:42 GFR, estimated (eGFR), serum 2024 025 [facility] (Lab), [address] [place] [address] [address], [place], [address], 10/24/2024 04:03:42 glucose, fingersti ck, blood [address] [place] [address], [address], [place], [address], 09/04/2024 11:38:37 HbA1c (hemoglob in A1c), blood 2024 025 [facility] (Lab), [address] [place] [address] [place] [address], [phone], 09/11/2024 04:02:29 microalbu min/creat inine, mass ratio, urine 2024 025 [facility] (Lab), [address] [place] [address] [facility] [place], [address], 09/11/2024 04:02:29 uric acid, serum or plasma [address] [place] [address] (Lab), [facility] [address] [place] [address], [address], 09/11/2024 04:02:29 lipid panel, serum [address] [place] [address] (Lab), [address] [place] [address], [address], 09/11/2024 04:02:29 CBC w/ auto diff 2024 025 [facility] (Lab), [facility] [address], [place], [address], 09/15/2024 05:01:25 CMP, serum or plasma 2024 025 [facility] (Lab), [facility] [address], [place], [address], 09/15/2024 05:01:25 urinalysi s complete, reflex culture 2024 025 [facility] (Lab), [address] [place] [address] [address], [place], [address], 09/15/2024 05:01:25 HbA1c (hemoglob in A1c), blood 2024 025 [facility] (Lab), [address] [place] [address], [place], [address], 09/15/2024 05:01:25 microalbu min/creat inine, mass ratio, urine 2024 025 [facility] (Lab), [address] [place] [address], [place], [address], 09/15/2024 05:01:25 uric acid, serum or plasma 2024 025 [facility] (Lab), [address] [place] [address], [place], [address], 09/15/2024 05:01:25 lipid panel, serum 2024 025 [facility] (Lab), [facility] [address], [place], [address], 09/15/2024 05:01:25 vitamin D, 25-hydrox y, total, serum 2024 025 [facility] (Lab), [facility] [address], [place], [address], 09/15/2024 05:01:25 CBC w/ auto diff 2024 025 [facility] (Lab), [address] [place] [address], [phone], 09/15/2024 05:01:25 CMP, serum or plasma 2024 025 [facility] (Lab), [address] [place] [address], [phone], 09/15/2024 05:01:25 CBC w/ auto diff 2023 024 [facility] (Lab), [address] [place] [address], [address], 12/10/2023 05:01:02 CMP, serum or plasma 2023 024 [facility] (Lab), [address] [place] [address], [address], 12/10/2023 05:01:02 urinalysi s complete, reflex culture 2023 024 [facility] (Lab), [address] [place] [address], [address], 12/10/2023 05:01:02 HbA1c (hemoglob in A1c), blood 2023 024 [facility] (Lab), [address] [place] [address], [address], 07/01/2023 07:56:19 microalbu min/creat inine, mass ratio, urine 2023 024 [facility] (Lab), [address] [place] [address], [address], 06/30/2023 16:07:42 C-reactiv e protein, quantitat malou, serum or plasma 2023 024 [facility] (Lab), [address], [place], [address], 12/10/2023 05:01:03 ESR (erythroc yte sedimenta tion rate), blood 2023 024 [facility] (Lab), [address], [place], [address], 12/10/2023 05:01:02 lipid panel, serum 2023 024 [facility] (Lab), [address], [place], [address], 07/01/2023 07:56:19 Referral None recorded. Procedures None recorded. Surgeries None recorded. Imaging electroca rdiogram 2024 025 [facility], [address] [address], [facility], [place], [address], 10/31/2024 04:04:42 Medication Orders Flomax 0.4 mg capsule 2024 025 [facility]39062, [address], [id number], 10/17/2024 12:23:59 zolpidem 5 mg tablet 2024 025 [facility] #40231, [address], [id number], 09/04/2024 11:38:46 trazodone 50 mg tablet 2024 025 [facility], [address], [id number], 09/04/2024 11:36:31 trazodone 50 mg tablet 2023 024 [place] [address] [address] [facility] #30526, [address], [id number], 09/04/2024 11:35:56 Patient TargetsNo targets recorded. Patient Instructions Encounter Date Encounter Id Patient Instructions Last Modified By Organization Details Last Modified Time 06/06/2023 [id number] learning about t ype 2 diabetes [email or web address] Not available 06/06/2023 11:36:31 type 2 diabetes: care instructions [email or web address] Not available 06/06/2023 11:36:31 rosacea: care instructions [email or web address] Not available 06/06/2023 11:36:32 gastroesophageal reflux disease (GERD): care instructions [email or web address] Not available 06/06/2023 11:36:32 abnormal weight gain: care instructions [email or web address] Not available 06/06/2023 11:36:32 09/06/2023 [id number] learning about t ype 2 diabetes [email or web address] Not available 09/06/2023 12:24:27 type 2 diabetes: care instructions [email or web address] Not available 09/06/2023 12:24:27 rosacea: care instructions [email or web address] Not available 09/06/2023 12:24:27 gastroesophageal reflux disease (GERD): care instructions Not available 09/06/2023 12:24:27 03/06/2024 [id number] learning about t ype 2 diabetes [id number] Not available 03/06/2024 12:04:10 type 2 diabetes: care instructions [email or web address] Not available 03/06/2024 12:04:09 rosacea: care instructions [email or web address] Not available 03/06/2024 12:04:10 gastroesophageal reflux disease (GERD): care instructions [email or web address] Not available 03/06/2024 12:04:10 advance care planning: care instructions Not available 03/06/2024 12:04:10 I spent a total of ___35___ minutes (excluding separately reportable procedure time ) in care of this patient. [email or web address] Not available 03/06/2024 12:03:36 09/04/2024 [id number] learning about t ype 2 diabetes [email or web address] Not available 09/04/2024 11:38:38 type 2 diabetes: care instructions [id number] Not available 09/04/2024 11:38:38 rosacea: care instructions [email or web address] Not available 09/04/2024 11:38:38 gastroesophageal reflux disease (GERD): care instructions [email or web address] Not available 09/04/2024 11:38:37 I spent a total of __34____ minutes (excluding separately reportable procedure time ) in care of this patient. Not available 09/04/2024 11:34:24 10/17/2024 [id number] dash diet: care instructions [email or web address] Not available 10/17/2024 12:23:52 low sodium diet (2,000 milligram): care instructions [email or web address] Not available 10/17/2024 12:23:52 learning about t ype 2 diabetes [email or web address] Not available 10/17/2024 12:23:52 type 2 diabetes: care instructions [email or web address] Not available 10/17/2024 12:23:52 kidney stone: ca re instructions [email or web address] Not available 10/17/2024 12:23:52 learning about d iet for kidney stone prevention [email or web address] Not available 10/17/2024 12:23:52 learning about d iet for kidney stone prevention [id number] Not available 10/17/2024 12:23:52 rosacea: care instructions [id number] Not available 10/17/2024 12:23:52 gastroesophageal reflux disease (GERD): care instructions [email or web address] Not available 10/17/2024 12:23:52 I spent a total of __36____ minutes (excluding separately reportable procedure time ) in care of this patient. [email or web address] Not available 10/17/2024 12:50:16 Reason for Referral None Reported. Results Created Date Observation Date Name Description Value Unit Range Abnormal Flag Note LastModifiedBy Organization Detail LastModifiedTime 09/05/1909/04/2024 gluco se, ulises sheppard k, blood Blood Glucose: mg/dl 103 Not Available [facility] [address], [place], [address], 09/04/2024 11:14:47 07/13/19 25 07/12/2024 MAMMO , diagn ostic , tomos ynthe sis, unila teral No observ ation record ed. [email or web address] [place] [facility] [address] [place], [address], 09/04/2024 11:24:06 08/20/19 25 08/19/2024 bone densi ty No observ ation record ed. [facility] [address], [address], 09/05/2024 04:02:12 10/18/19 25 10/15/2024 CT, abdom en + pelvi s, w/ contr ast EXAMIN ATION: CT abdome n pelvis w conDAT E: 2024 18:06I NDICAT ION: Right lower quadra nt abdomi nal painTE CHNIQU E: Comput ed tomogr aphy (CT) of the abdome n and pelvis was perfor med with 100 mL Omnipa que-[address] Automa mery exposu re contro l and iterat malou recons tructi on techni que were employ ed. The dose-l ength produc t was 300.28 mGy-cm .SADAF RISON: 03/25/19 22FIND INGS: Mild depend ent atelec tasis in bilate ral lower lobes. Unchan ged 5 mm nodule at the latera l basila r right lower lobe. Heart size is normal . Athero sclero tic etienne ry artery calcif ic locati on. No perica rdial or pleura l effusi on. Small amount of fluid within a small slidin g-type hiatal hernia . Left breast implan t. Liver, gallbl adder, spleen , pancre as and bilate ral adrena l glands are normal . Bilate ral nonobs tructi ng nephro lithia sis with a 6 stones measur ing up to 2 mm in the left kidney and 6 stones in the right kidney measur ing up to 6 mm. Bladde r, retrov erted uterus and left adnexa are unrema rkable . Chroni c 2.5 cm right adnexa l cyst. Bowels are normal with no abnorm al wall thicke spencer or obstru ction. The append ix is not visual ized. No perice jolene inflam matory change to sugges t acute append icitis . No free intrap eriton eal gas or fluid. No pathol ogical ly enlarg ed abdomi nal or pelvic lympha denopa thy.. Thorac olumba r dextro curvat ure with severe spondy losis. IMPRES SEAN:1 . Bilate ral nonobs tructi ng nephro lithia sis.2. Small slidin g-type hiatal hernia . [email or web address] Not Available 09/21 12:06:18 Result Notes Documentation Provider Name and Address Organization Details Recorded Time Ct, Abdomen + Pelvis, W/ Contrast : EXAMINATION: CT abdomen pelvis w conDATE: 10/15/2024 18:06INDICATION: Right lower quadrant abdominal painTECHNIQUE: Computed tomography (CT) of the abdomen and pelvis was performed with 100 mL Omnipaque-350 intravenous contrast. Automated exposure control and iterative reconstruction technique were employed. The dose-length product was 300.28 mGy-cm.COMPARISON: 03/25/2021FINDINGS: Mild dependent atelectasis in bilateral lower lobes. Unchanged 5 mm nodule at the lateral basilar right lower lobe. Heart size is normal. Atherosclerotic coronary artery calcific location. No pericardial or pleural effusion. Small amount of fluid within a small sliding-type hiatal hernia. Left breast implant. Liver, gallbladder, spleen, pancreas and bilateral adrenal glands are normal. Bilateral nonobstructing nephrolithiasis with a 6 stones measuring up to 2 mm in the left kidney and 6 stones in the right kidney measuring up to 6 mm. Bladder, retroverted uterus and left adnexa are unremarkable. Chronic 2.5 cm right adnexal cyst. Bowels are normal with no abnormal wall thickening or obstruction. The appendix is not visualized. No pericecal inflammatory change to suggest acute appendicitis. No free intraperitoneal gas or fluid. No pathologically enlarged abdominal or pelvic lymphadenopathy.. Thoracolumbar dextrocurvature with severe spondylosis.IMPRESSION:1. Bilateral nonobstructing nephrolithiasis.2. Small sliding-type hiatal hernia. Samir Red MD [address] [facility] [address], [place], [address], [facility] 10/17/2024 12:06:18 Problems Name Problem SNOMED Code Status Onset Date Resolution Date Notes Provider Name and Address Organization Details Recorded Time Actinic keratosis 931916878 Active 2022 Not Available [facility] 4 11:29:19 Bilateral cataracts 65786366 Active 2022 Not Available [facility] 4 11:29:19 Type 2 diabetes mellitus 50958557 Active 2022 Not Available [facility] 4 11:29:19 Gastroesop hageal reflux disease 879254262 Active 2022 Not Available [facility] 4 11:29:19 Hyperchole sterolemia 58505940 Active 2022 Not Available [facility] 4 11:29:19 Hypertensi ve disorder 60054056 Active 2022 Not Available [facility] 4 11:29:19 History of malignant neoplasm of breast 984996389 Active 2022 Not Available [facility] 4 11:29:19 Poliosis 93170949 Active 2022 Not Available [facility] 4 11:29:19 Rosacea 485823684 Active 2022 Not Available [facility] 4 11:29:19 Fibromyosi tis 05807237 Active 2022 Not Available [facility] 4 11:29:19 Osteopenia 301869198 Active 2022 Not Available [facility] 4 11:29:19 Idiopathic peripheral neuropathy 44769075 Active 2022 Not Available [facility] 4 11:29:19 Lumbar spondylosi s 176739963 Active 2022 Not Available [facility] 4 11:29:19 Pain of right shoulder joint 9013075842533 9100 Active 2022 Not Available [facility] 4 11:29:19 Preventive procedure Active 2022 Not Available [facility] 4 11:29:19 Polymyalgi a rheumatica 94183975 Active 2022 Not Available [facility] 4 11:29:19 Abnormal weight gain 002051711 Active 2023 Not Available [facility] 4 11:29:19 Chronic insomnia 162908050 Active 2023 Samir Red MD [address] [facility] [address], [place], [place], [address] [place] [address] , [facility] 4 12:24:48 Kidney stone 65251307 Active 2024 Samir Red MD [address] [facility] [address], [place], [place], [address] [place] [address] , [facility] 5 11:58:07 Cyst of right ovary 4613844119795 9108 Active 2024 Samir Red MD [address] [facility] [address], [place], [address] [place] [address] , [facility] 5 12:20:21 Problem Notes None recorded. Procedures Surgical History Date Name Laterality Status Provider Name and Address Organization Details Recorded Time 4 extraction of cataract completed Samir Red MD [address] [facility] [address], [place], [place], [address] [place] [address], [facility] 06/06/2023 11:25:29 6 extraction of cataract completed Samir Red MD [address] [facility] [address], [place], [address] [place] [address], [facility] 06/06/2023 11:25:49 Imaging Results None recorded. Procedure Notes None recorded. Medical Equipment None Reported. Allergies Allergen ID Allergen Name Allergen Category Reaction Reaction Severity Criticality Documentation Date Start Date Code Code System Note Provider Name and Address Organization Details Recorded Time 620 estrogens , conjugate d (CORRECTION) medicatio n Not available Not available Not available 07/29/2022 4099 RxNorm React ion: rash, sever ity: Unkno wn Not Available [facility] 3 04:11:15 621 Penicilli n Not available Not available Not available Not available 07/29/2022 50841 RxNorm React ion: rash, sever ity: Unkno wn Not Available [facility] 3 04:11:15 Medications Name Sig Start Date Stop Date Status Note LastModified by Organization Details LastModified Time amoxicill in 500 mg capsule TAKE ONE CAPSULE BY MOUTH THREE TIMES DAILY UNTIL ALL TAKEN 12/07 completed Not Available Not Available Not Available metformin 500 mg tablet TAKE 1 TABLET BY MOUTH EVERY DAY 12/07 completed Not Available Not Available Not Available anastrozo le 1 mg tablet 1 tablet Orally Once a day active Not Available Not Available No t Available prednison e 10 mg tablet TAKE 1 TABLET BY MOUTH EVERY DAY 06/05 completed Not Available Not Available Not Available triazolam 0.25 mg tablet 06/05 completed Not Available Not Available Not Available trazodone 50 mg tablet TAKE 1 TABLET BY MOUTH EVERY DAY AT BEDTIME 09/04 completed palpitat ions Not Available Not Available Not Available atorvasta tin 10 mg tablet TAKE 1 TABLET BY MOUTH EVERY DAY active Not Available Not Available No t Available hydrocodo ne 5 mg-acetam inophen 325 mg tablet TAKE 1 TABLET BY MOUTH EVERY 4 TO 6 HOURS NEEDED FOR PAIN 06/05 completed Not Available Not Available Not Available flurbipro fen 0.03 % eye drops 06/05 completed Not Available Not Available Not Available meloxicam 15 mg tablet TAKE 1 TABLET BY MOUTH EVERY DAY 06/05 completed Not Available Not Available Not Available prednison e 5 mg tablet TAKE 1 TABLET BY MOUTH EVERY DAY 06/05 completed Not Available Not Available Not Available aspirin 81 mg tablet,de layed release 1 tablet Orally Once a day 06/05 completed Not Available Not Available Not Available triamtere ne 37.5 mg-hydroc hlorothia zide 25 mg capsule TAKE 1 CAPSULE BY MOUTH EVERY DAY IN THE MORNING active Not Available Not Available No t Available amoxicill in 500 mg tablet TAKE 1 TABLET BY MOUTH THREE TIMES DAILY UNTIL ALL TAKEN 12/07 completed Not Available Not Available Not Available prednisol one acetate 1 % eye drops,libra pension 06/05 completed Not Available Not Available Not Available tamsulosi n 0.4 mg capsule TAKE 1 CAPSULE BY MOUTH EVERY DAY active Not Available Not Available No t Available prednison e 1 mg tablet TAKE 1 TABLET BY MOUTH EVERY DAY 06/05 completed Not Available Not Available Not Available ciproflox acin 0.3 % eye drops 06/05 completed Not Available Not Available Not Available prednison e 2.5 mg tablet TAKE 1 TABLET BY MOUTH EVERY DAY START AFTER COMPLETE D 5MG DAILY 06/05 completed Not Available Not Available Not Available dexametha sone 4 mg tablet 12/07 completed Not Available Not Available Not Available gabapenti n 300 mg capsule 1 tablet Orally Once a day active Not Available Not Available No t Available zolpidem 5 mg tablet TAKE 1 TABLET BY MOUTH AT BEDTIME NEEDED active Not Available Not Available No t Available methylpre dnisolone 4 mg tablets in a dose pack FOLLOW PACKAGE DIRECTIO NS 12/07 completed Not Available Not Available Not Available metformin ER 500 mg tablet,ex tended release 24 hr TAKE 1 TABLET BY MOUTH EVERY DAY WITH THE EVENING MEAL active Not Available Not Available No t Available metronida zole 0.75 % topical gel 1 applicat ion Orally Once a day active Not Available Not Available No t Available cyclobenz aprine 5 mg tablet TAKE 1 TABLET BY MOUTH THREE TIMES DAILY NEEDED 09/04 completed Not Available Not Available Not Available chlorhexi dine gluconate 0.12 % mouthwash as directed Mouth/Th roat 12/07 completed Not Available Not Available Not Available calcium 600 mg (as carbonate )-vitamin D3 10 mcg (400 unit) tablet 1 tablet with a meal Orally Once a day active Not Available Not Available No t Available BinaxNOW COVID-19 Ag Self Test kit TEST DIRECTED TODAY 12/07 completed Not Available Not Available Not Available Vitals Date Recorded Body height Body temperature Body mass index (BMI) Body weight Heart rate Respiratory rate Oxygen saturation Systolic And Diastolic Provider Name and Address Organization Details Last Updated DateTime 5 160.02 cm 97.2 [degF] 24.4 kg/m2 26144.7 5 g 73 /min 16 /min 98 % 126/75 mm[Hg] Yessi Tavares [facility] 5 11:18:44 Date Recorded Body height Body temperature Body mass index (BMI) Body weight Heart rate Respiratory rate Oxygen saturation Systolic And Diastolic Provider Name and Address Organization Details Last Updated DateTime 4 160.02 cm 98.1 [degF] 25.7 kg/m2 72685.8 9 g 83 /min 18 /min 97 % 148/60 mm[Hg] [facility] 4 11:11:57 Date Recorded Body height Body temperature Body mass index (BMI) Body weight Heart rate Respiratory rate Oxygen saturation Systolic And Diastolic Provider Name and Address Organization Details Last Updated DateTime 5 160.02 cm 98.1 [degF] 25.2 kg/m2 88293.1 2 g 70 /min 18 /min 97 % 138/80 mm[Hg] [facility] 5 11:10:21 Date Recorded Body height Body temperature Body mass index (BMI) Body weight Heart rate Respiratory rate Oxygen saturation Systolic And Diastolic Provider Name and Address Organization Details Last Updated DateTime 4 160.02 cm 97.2 [degF] 24.6 kg/m2 81029.3 4 g 80 /min 16 /min 97 % 110/60 mm[Hg] [facility] 4 11:55:38 Date Recorded Body height Body temperature Body mass index (BMI) Body weight Heart rate Respiratory rate Oxygen saturation Systolic And Diastolic Provider Name and Address Organization Details Last Updated DateTime 5 160.02 cm 97.4 [degF] 24.6 kg/m2 28650.3 4 g 67 /min 18 /min 97 % 120/60 mm[Hg] [facility] 5 11:42:28 Social History None recorded. Functional Status None recorded. Mental Status None recorded. Family History Nothing Reported Notes:mother-breast cancer, heart attack father-cancer grandfather-heart attack Medical History No medical history recorded. Gynecological HistoryNo gynecological history recorded. Obstetrics History GPAL:G 0 P 0 0 0 0 Immunizations Vaccine Type Date Status Note Provider Nam e and Address Organization Details Recorded Time Influenza, high-dose, quadrivalent, PF 1 completed [facility] 03/09/2023 12:00:28 Influenza, high-dose, quadrivalent, PF 2 completed Yessi Eckart null, [facility] 03/09/2023 12:00:28 COVID-19, mRNA, LNP-S, PF, 30 mcg/0.3 mL dose 1 completed Yessi Eckart null, [facility] 03/09/2023 12:00:28 COVID-19, mRNA, LNP-S, PF, 30 mcg/0.3 mL dose 1 completed Yessi Eckart null, [facility] 03/09/2023 12:00:28 COVID-19, mRNA, LNP-S, PF, 30 mcg/0.3 mL dose 1 [facility] 12:00:28 COVID-19, mRNA, LNP-S, bivalent, PF, 30 mcg/0.3 mL dose 2 completed [facility]/09[facility] 12:00:28 pneumococcal polysaccharide PPV23 0 completed Yessi Eckart [facility] 03/09/2023 12:00:28 Pneumococcal conjugate PCV 13 9 completed Yessi Eckart [facility] 03/09/2023 12:00:28 Influenza, high-dose, trivalent, PF 0 completed Yessi Eckart [facility] 03/09/2023 12:00:28 Influenza, high-dose, trivalent, PF 9 completed Yessi Eckart null, [facility] 03/09/2023 12:00:28 zoster recombinant 3 completed [facility]/09[facility] 12:00:28 Influenza, adjuvanted, quadrivalent, PF 3 completed Samir Red MD [address] [facility] [address], [place], [address], [facility] 03/09/2023 12:20:13 RSV, recombinant, protein subunit RSVpreF, adjuvant reconstituted, 0.5 mL, PF 3 completed Yessi neal, [facility] 03/09/2023 12:00:28 zoster recombinant 4 completed Yessi neal, [facility] 06/06/2023 11:12:12 Influenza, high-dose, trivalent, PF 4 completed Samir Red MD [address], [place], [address], [facility] 03/06/2024 11:57:03 Past Encounters Encounter ID Performer Location Encounter Start Date Encounter Closed Date Diagnosis/Indication Diagnosis SNOMED-CT Code Diagnosis ICD10 Code Diagnosis IMO Codes Diagnosis Note [id number] Samir Red MD [facility] [address] [place] [address] 09/21/2022 16:05:31 09/21/2022 17:24:07 Fibromyositis 76670103 M79.7 Meloxicam aggravated the pain and hence stoppedCK level came back normalShe had stopped her anastrozol eWill switch her Lipitor to every otherr day and see the responseSt atin-[facility] [place] [facility] myalgia is a possibilit y as wellCymbal ta is an option however deferred at this visitWe will also get x-ray of the shoulder joint bilateral and cervical spine Type 2 ying betes mellitus 00172520 E11.9 On metformin 500 mg twice a dayA1 C5 0.7 2019 Rosacea 281408278 L71.9 On metronidaz ole gel local applicatio n Poliosis 34534950 L67.1 History of polio as a child Hypertensive disorder 38 783558 I10 On triamteren e hydrochllo rothiazide Hypercholesterolemia 136 17481 E78.00 On atorvastat ik2111 LDL 192Repeat 08/12: Switch atorvastat in to every other day and monitor lipid profile History of malignant neoplasm of breast 996574962 Z85.3 Initially diagnosed 2012 status post mastectomy Reappearan ce 2021: Stattus post lumpectomy finished radiation treatmentO n anastrozol eSees Dr. Segura ed tamoxifen in the past after mastectomy which caused severe vasomotor symptoms as well Gastroesop hageal reflux disease 334017641 K21.9 Stable Osteopenia 589284501 M85 .89 Osteopenia on DEXA scan 08/12: Low bone Sue calcium and vitamin D supplement ation Idiopathic peripheral neuropathy 82921810 G60.9 Suspected due to chemothera py Lumbar spondylosis 26254 0009 M47.896 3 mm anterolist hesis of L5 on S1 and S2 and 2 mm anterolist hesis of L4 on R7Aglyhsio loss of IVD space height at L012 L5-H3Dcmca ate to severe facet Osteoarthr itisHistor y of horse riding aand injuries related to it in the past [id number] Samir Red MD [facility] [address] [place] [address] 11/08/2022 12:26:47 11/08/2022 13:14:34 Type 2 diabetes mellitus 32424163 E11.9 On metformin 500 mg twice a dayA1 C5 0.7 2019 Polymyalgi a rheumatica 06276400 M35.3 esr crp high.cervi jolene spine: mild arthritssh oulder xray : mild arthritisp olymyalgia rheumatica possibilit yDiscussed risk and benefits of starting steroid treatment Also referred to rheumatolo gist [id number] Samir Red MD [facility] [address] [place] [address] 12/07/2022 12:01:33 12/07/2022 13:05:09 Polymyalgia rheumatica 14689716 M35.3 Meloxicam aggravated the pain and hence stoppedCK level came back normalShe had stopped her anastrozol eWill switch her Lipitor to every otherr day and see the responseSt atin-induc ed myalgia is a possibilit y as wellCymbal ta is an option however deferred at this visitesr/c rp high.cervi jolene spine: mild arthritssh oulder xray : mild arthritisp olymyalgia rheumatica possibilit ystarted on prednisone 10 mg daily.feel s greatremai n on 10 mg prednisone today and will continue same until follow up in 3 months. Type 2 ying betes mellitus 69196221 E11.9 On metformin 500 mg twice a dayA1 C 5.7 2019 Rosacea 237213117 L71.9 On metronidaz ole gel local applicatio n Poliosis 38230522 L67.1 History of polio as a child Hypertensive disorder 38 791643 I10 On triamteren e hydrochllo rothiazide Hypercholesterolemia 136 93427 E78.00 On atorvastat sb8854 LDL 192Repeat 08/12: 99Switch atorvastat in to every other day and monitor lipid profile History of malignant neoplasm of breast 373973367 Z85.3 Initially diagnosed 2012 status post mastectomy Reappearan ce 2021: Stattus post lumpectomy finished radiation treatmentO n anastrozol eSjohn Segura ed tamoxifen in the past after mastectomy which caused severe vasomotor symptoms as well Gastroesop hageal reflux disease 481126284 K21.9 Stable Osteopenia 870043508 M85 .89 Osteopenia on DEXA scan 08/12: Low bone Sue calcium and vitamin D supplement ation Idiopathic peripheral neuropathy 31166613 G60.9 Suspected due to chemothera py Lumbar spondylosis 11743 0009 M47.896 3 mm anterolist hesis of L5 on S1 and S2 and 2 mm anterolist hesis of L4 on Q8Hmijbbqm loss of IVD space height at L012 L5-Q6Okwnq ate to severe facet Osteoarthr itisHistor y of horse riding and injuries related to it in the past [id number] Samir Red MD [place] [address] [facility] [address] [place] [address] 03/09/2023 11:36:45 03/09/2023 12:30:02 Polymyalgia rheumatica 84176310 M35.3 Meloxicam aggravated the pain and hence stoppedCK level came back normalShe had stopped her anastrozol eWill switch her Lipitor to every otherr day and see the responseSt atin-induc ed myalgia is a possibilit y as wellCymbal ta is an option however deferred at this visitesr/c rp high.cervi jolene spine: mild arthritssh oulder xray : mild arthritisp olymyalgia rheumatica possibilit ystarted on prednisone 10 mg daily.feel s greatremai n on 10 mg prednisone today and will continue same until follow up in 3 months.alan l lower 5 mg daily x 1 moh, then 2.5 mg daily x 1 mth then 1 mg daily Type 2 ying betes mellitus 29375778 E11.9 On metformin 500 mg twice a dayA1 C 5.7 2019 Rosacea 649128013 L71.9 On metronidaz ole gel local applicatio n Poliosis 66908368 L67.1 History of polio as a child Hypertensive disorder 38 560045 I10 On triamteren e hydrochllo rothiazide likley due to steroidwil l lower the steroid and reassess and monitor Hypercholesterolemia 136 60962 E78.00 On atorvastat hg0215 LDL 192Repeat 08/12: 99Switch atorvastat in to every other day and monitor lipid profile History of malignant neoplasm of breast 146152031 Z85.3 Initially diagnosed 2012 status post mastectomy Reappearan ce 2021: Stattus post lumpectomy finished radiation treatmentO n anastrozol eSees Dr. Segura ed tamoxifen in the past after mastectomy which caused severe vasomotor symptoms as well Gastroesop hageal reflux disease 263640807 K21.9 Stable Osteopenia 435436997 M85 .89 Osteopenia on DEXA scan 08/12: Low bone Sue calcium and vitamin D supplement ation Idiopathic peripheral neuropathy 19920623 G60.9 Suspected due to chemothera py Lumbar spondylosis 19583 0009 M47.896 3 mm anterolist hesis of L5 on S1 and S2 and 2 mm anterolist hesis of L4 on C5Fvaxxqie loss of IVD space height at L012 L5-Q8Zfzbr ate to severe facet Osteoarthr itisHistor y of horse riding and injuries related to it in the past Abnormal weight gain 161 595448 R63.5 likely due to steroidwil l slowly taper and will reassessdi et and physical activity reviwed with the patient during the visit [id number] Samir Red MD [facility] [address] [facility] [address] [place] [address] 06/06/2023 11:03:54 06/06/2023 11:43:00 Polymyalgia rheumatica 09818252 M35.3 Meloxicam aggravated the pain and hence stoppedCK level came back normalShe had stopped her anastrozol eWill switch her Lipitor to every otherr day and see the responseSt atin-induc ed myalgia is a possibilit y as wellCymbal ta is an option however deferred at this visitesr/c rp high.cervi jolene spine: mild arthritssh oulder xray : mild arthritisp olymyalgia rheumatica possibilit ystarted on prednisone 10 mg daily adn now down to 1 mg daily.feel s greatwill stop prednisone now Abnormal weight gain 161 069886 R63.5 likely due to steroidwil l slowly taper and will reassessdi et and physical activity reviwed with the patient during the visitweigh t is steady and steroid is goign to be off now Type 2 ying betes mellitus 34574041 E11.9 On metformin 500 mg twice a dayA1 C 5.7 2019rechec k a1c now Rosacea 536486619 L71.9 On metronidaz ole gel local applicatio n Poliosis 06556383 L67.1 History of polio as a child Hypertensive disorder 38 666386 I10 On triamteren e hydrochlor othiazidel ikley due to steroidwil l lower the steroid and reassess and monitorsti ll a bit highershe will check bp at home and will reassess Hypercholesterolemia 136 06043 E78.00 On atorvastat zr4180 LDL 192Repeat 08/12: 99Switch atorvastat in to every other day and monitor lipid profile History of malignant neoplasm of breast 800499806 Z85.3 Initially diagnosed 2012 status post mastectomy Reappearan ce 2021: Stattus post lumpectomy finished radiation treatmentO n anastrozol eSees Dr. Segura ed tamoxifen in the past after mastectomy which caused severe vasomotor symptoms as well Gastroesop hageal reflux disease 773001132 K21.9 Stable Osteopenia 141165546 M85 .89 Osteopenia on DEXA scan 08/12: Low bone Sue calcium and vitamin D supplement ation Idiopathic peripheral neuropathy 81838879 G60.9 Suspected due to chemothera py Lumbar spondylosis 91381 0009 M47.896 3 mm anterolist hesis of L5 on S1 and S2 and 2 mm anterolist hesis of L4 on X6Cpmaxtmp loss of IVD space height at L012 L5-V6Fhvby ate to severe facet Osteoarthr itisHistor y of horse riding and injuries related to it in the past [id number] Samir Red MD [facility] [address] [place] [address] 09/06/2023 11:36:15 09/06/2023 12:29:54 Polymyalgia rheumatica 44842861 M35.3 Meloxicam aggravated the pain and hence stoppedCK level came back normalShe had stopped her anastrozol eWill switch her Lipitor to every otherr day and see the responseSt atin-induc ed myalgia is a possibilit y as wellCymbal ta is an option however deferred at this visitesr/c rp high.cervi jolene spine: mild arthritssh oulder xray : mild arthritisp olymyalgia rheumatica possibilit ystarted on prednisone 10 mg daily adn now down to 1 mg daily.feel s great stopped prednisone now and no further flares Type 2 ying betes mellitus 72463633 E11.9 On metformin 500 mg twice a dayA1 C 5.7 : 5.9 Rosacea 260369410 L71.9 On metronidaz ole gel local applicatio n Poliosis 87305934 L67.1 History of polio as a child Hypertensive disorder 38 280111 I10 On triamteren e hydrochlor othiazideb p optmial now Hypercholesterolemia 136 52439 E78.00 On atorvastat mx9197 LDL 192Repeat 08/12: 99Switch atorvastat in to every other day and monitor lipid profile06/21 4: LDL 137. atorvastat in other day: will switch to once daily History of malignant neoplasm of breast 527716785 Z85.3 Initially diagnosed 2012 status post mastectomy Reappearan ce 2021: Stattus post lumpectomy finished radiation treatmentO n anastrozol eSees Dr. Segura ed tamoxifen in the past after mastectomy which caused severe vasomotor symptoms as well Gastroesop hageal reflux disease 191931625 K21.9 Stable Osteopenia 286162369 M85 .89 Osteopenia on DEXA scan 08/12: Low bone Sue calcium and vitamin D supplement ation Idiopathic peripheral neuropathy 31231872 G60.9 Suspected due to chemothera py Lumbar spondylosis 36307 0009 M47.896 3 mm anterolist hesis of L5 on S1 and S2 and 2 mm anterolist hesis of L4 on H7Dzkcyzxp loss of IVD space height at L012 L5-Z2Cysjk ate to severe facet Osteoarthr itisHistor y of horse riding and injuries related to it in the past Chronic insomnia 9907606 04 F51.04 tried otcongoing issuedsius sed optinswill add trazodone prn [id number] Samir Red MD [facility] [address] [place] [address] 03/06/2024 11:06:40 03/06/2024 12:09:22 Adult health examination 519260017 Z00.00 diet and physical activity reviewedva ccines and screening tests reviewedme dication reviewed Screening mammography 24 344848 Z12.31 does it through surgeon in june 2024 Hypertensive disorder 38 395826 I10 On triamteren e hydrochlor othiazideb p optimal now Chronic insomnia 2689666 04 F51.04 tried otcongoing issuedsius sed optinswill add trazodone prnshe takes half tablet daily prn Polymyalgi a rheumatica 36200161 M35.3 Meloxicam aggravated the pain and hence stoppedCK level came back normalShe had stopped her anastrozol eWill switch her Lipitor to every otherr day and see the responseSt atin-induc ed myalgia is a possibilit y as wellCymbal ta is an option however deferred at this visitesr/c rp high.cervi jolene spine: mild arthritssh oulder xray : mild arthritisp olymyalgia rheumatica possibilit ystarted on prednisone 10 mg daily adn now down to 1 mg daily.feel s great stopped prednisone now and no further flares Type 2 ying betes mellitus 88131355 E11.9 On metformin 500 mg twice a dayA1 C 5.7 : 5.9 Rosacea 138925462 L71.9 On metronidaz ole gel local applicatio n Poliosis 97032608 L67.1 History of polio as a child Hypercholesterolemia 136 05019 E78.00 On atorvastat gb1496 LDL 192Repeat 08/12: 99Switch atorvastat in to every other day and monitor lipid profile06/21 4: LDL 137. atorvastat in other day: will switch to once daily History of malignant neoplasm of breast 727241284 Z85.3 Initially diagnosed 2013 status post mastectomy Reappearan ce 2021: Stattus post lumpectomy finished radiation treatmentO n anastrozol Roopa Segura ed tamoxifen in the past after mastectomy which caused severe vasomotor symptoms as well Gastroesop hageal reflux disease 997259473 K21.9 Stable Osteopenia 472115091 M85 .89 Osteopenia on DEXA scan 08/12: Low bone Sue calcium and vitamin D supplement ation Idiopathic peripheral neuropathy 91769864 G60.9 Suspected due to chemothera py Lumbar spondylosis 71930 0009 M47.896 3 mm anterolist hesis of L5 on S1 and S2 and 2 mm anterolist hesis of L4 on N4Ksvcoyic loss of IVD space height at L012 L5-C8Jochk ate to severe facet Osteoarthr itisHistor y of horse riding and injuries related to it in the past Preventive procedure 169 699943 Z29.9 colonsocop y 04/20/2021 dr. Jacobs. some polyps in there.mamm ogram 09/07/2021 06/28/2022: negative. 06/2023 negative per patientbon e density: july 29 2022: low bone massflu: ov id: 4 shotspneum onia: pcv13 2018; ppv23: 2020RSV: 12/2022zos ter: completed [id number] Samir Red MD [facility] [address] [place] [address] 09/04/2024 11:03:28 09/04/2024 11:42:47 Preventive procedure 711982627 Z29.9 colonoscop y 04/20/2021 dr. Jacobs. some polyps in there.mamm ogram 09/07/2021 06/28/2022: negative. 06/2023 negative per patient , 06/2024: normalbone density: july 29 2022: low bone mass : 07/2024: low bone mass (lowered)f tanya: ov id: 4 shotspneum onia: pcv13 2018; ppv23: 2019RSV: 12/2022zos ter: completed Hypertensive disorder 38 111104 I10 On triamteren e hydrochlor othiazideb p optimal nowcbc, cmp 07/14 normal Chronic insomnia 5690306 04 F51.04 tried otcongoing issuediscu ssed optionstra zodone: palpitatio ns.tried melatonina dd ambien. Polymyalgi a rheumatica 28381803 M35.3 Meloxicam aggravated the pain and hence stoppedCK level came back normalShe had stopped her anastrozol eWill switch her Lipitor to every otherr day and see the responseSt atin-induc ed myalgia is a possibilit y as wellCymbal ta is an option however deferred at this visitesr/c rp high.cervi jolene spine: mild arthritssh oulder xray : mild arthritisp olymyalgia rheumatica possibilit ystarted on prednisone 10 mg daily adn now down to 1 mg daily.feel s great stopped prednisone now and no further flares Type 2 ying betes mellitus 94235003 E11.9 On metformin 500 mg twice a dayA1 C 5.7 : 5.9 Rosacea 488511565 L71.9 On metronidaz ole gel local applicatio n Poliosis 49056811 L67.1 History of polio as a child Hypercholesterolemia 136 02530 E78.00 On atorvastat cn5791 LDL 192Repeat 08/12: 99Switch atorvastat in to every other day and monitor lipid profile06/21 4: LDL 137. atorvastat in every other day: will switch to once daily History of malignant neoplasm of breast 446702658 Z85.3 Initially diagnosed 2012 status post mastectomy Reappearan ce 2021: Stattus post lumpectomy finished radiation treatmentO n anastrozol eSjohn Segura ed tamoxifen in the past after mastectomy which caused severe vasomotor symptoms as well Gastroesop hageal reflux disease 311648441 K21.9 Stable Osteopenia 815730828 M85 .89 Osteopenia on DEXA scan 08/12: Low bone Sue calcium and vitamin D supplement ationrepea t bone density 08/14: lowered with low bone mass.on zometa but last infusion 4recl ast provided 06/2023 and was transition ed to zometashe will reach out to Fany Argueta for zometa infusion which will be done q 6 months Idiopathic peripheral neuropathy 01137482 G60.9 Suspected due to chemothera py Lumbar spondylosis 67404 0009 M47.896 3 mm anterolist hesis of L5 on S1 and S2 and 2 mm anterolist hesis of L4 on P7Hzhxpkif loss of IVD space height at L012 L5-C3Ojnvk ate to severe facet Osteoarthr itisHistor y of horse riding and injuries related to it in the past [id number] Samir Red MD [facility] [address] [facility] [address] [place] [address] 10/17/2024 11:35:33 10/17/2024 12:25:18 Transition of care from emergency department to self-care 9292439808 57116 Z78.9 [id number] emergency note reviewedre viewed test results and reviewed with the patientsym ptoms improving and continue with current plan Kidney stone 37138428 N2 0.0 04200 multiple stones 6 in right upto 6 mm size and 6 in left upto 2 mmdrink plenty of wateradd flomax 0.4 mg dailycut the cheesemult iple ct scans in [place] past with bilateral nephrolith iasishx of left obstructiv e uropathy in 2011 needing stent placement. discussed all diet to prevent kidney stones Type 2 ying betes mellitus 76215924 E11.9 On metformin 500 mg twice a dayA1 C 5.7 : 5.9 Hypertensive disorder 38 690081 I10 On triamteren e hydrochlor othiazideb p optimal nowcbc, cmp 07/14 normal Hypercholesterolemia 136 18579 E78.00 On atorvastat yg9188 LDL 192Repeat 08/12: 99Switch atorvastat in to every other day and monitor lipid profile06/21 4: LDL 137. atorvastat in every other day: will switch to once daily Chronic insomnia 7755166 04 F51.04 tried otcongoing issuediscu ssed optionstra zodone: palpitatio ns.tried melatonina dd ambien. Polymyalgi a rheumatica 60215558 M35.3 Meloxicam aggravated the pain and hence stoppedCK level came back normalShe had stopped her anastrozol eWill switch her Lipitor to every otherr day and see the responseSt atin-induc ed myalgia is a possibilit y as wellCymbal ta is an option however deferred at this visitesr/c rp high.cervi jolene spine: mild arthritssh oulder xray : mild arthritisp olymyalgia rheumatica possibilit ystarted on prednisone 10 mg daily adn now down to 1 mg daily.feel s great stopped prednisone now and no further flares Rosacea 854199669 L71.9 On metronidaz ole gel local applicatio n Poliosis 46545265 L67.1 History of polio as a child History of malignant neoplasm of breast 426956947 Z85.3 Initially diagnosed 2012 status post mastectomy Reappearan ce 2021: Stattus post lumpectomy finished radiation treatmentO n anastrozol eSees Dr. Segura ed tamoxifen in the past after mastectomy which caused severe vasomotor symptoms as well Gastroesop hageal reflux disease 367749772 K21.9 Stable Osteopenia 282639996 M85 .89 Osteopenia on DEXA scan 08/12: Low bone Sue calcium and vitamin D supplement ationrepea t bone density 08/14: lowered with low bone mass.on zometa but last infusion 4recl ast provided 06/2023 and was transition ed to zometashe will reach out to Fany Argueta for zometa infusion which will be done q 6 months Idiopathic peripheral neuropathy 42133761 G60.9 Suspected due to chemothera py Lumbar spondylosis 64198 0009 M47.896 3 mm anterolist hesis of L5 on S1 and S2 and 2 mm anterolist hesis of L4 on O6Iuzthltd loss of IVD space height at L012 L5-U1Huuny ate to severe facet Osteoarthr itisHistor y of horse riding and injuries related to it in the past Preventive procedure 169 691551 Z29.9 colonoscop y 04/20/2021 dr. Jacobs. some polyps in there.mamm ogram 09/07/2021 06/28/2022: negative. 06/2023 negative per patient , 06/2024: normalbone density: july 29 2022: low bone mass : 07/2024: low bone mass (lowered)f tanya: ov id: 4 shotspneum onia: pcv13 2018; ppv23: 2020RSV: 12/2022zos ter: completed Cyst of right ovary 1223 224086 1029089 N83.201 621572 2.5 cm right cyst.chron ic and stable in size Health Concerns Section Related Observation LastModified by Organization Detai ls LastModified Time None Recorded Concern Status LastModified by Organization Details LastModified Time None Recorded Advance Directives Directive None Recorded Payers Insurance Date Sequence Insurance Name Policy Number Policy Alas Covered Member ID Alas Member ID Guarantor Name 10/17/2024 1 [place] Angella Tejada [id number] Angella Tejada 09/21/2022 2 [employer] [id number] Angella Tejada [id number] Angella Tejada 10/16/2024 2 [employer] SUPPLEMENTAL - [employer]URANCE (MEDICARE SUPPLEMENT) Angella Tejada [id number] Angella Tejada Notes Date Note Type Note Provider Name and Address Organization Details Recorded Time 06/06/2023 text/html ROS as noted in the HPI Pt here for 6 month follow up. C/O she only sleeps 4-5 hours nightly. Since she decreased steroid, she has noticed stiffness in right leg returned. Uses cane for assistance. Does not check blood sugar at home. No chest pain, shortness of breath, nausea or vomiting. Samir Red MD [address], [place], [address], [facility] 06/06/2023 11:37:04 09/06/2023 text/html ROS as noted in the HPI Pt here for lab review. C/O feeling fatigue-states she is only sleeping 3-5 hours nightly. No chest pain, shortness of breath, nausea or vomiting. Pt states joint pain has improved tremendously since last years flare up. Daughter and grandson is visiting from [place]. Samir Red MD [address], [place], [address], [facility] 09/06/2023 12:27:41 03/06/2024 text/html Medicare Annual Wellness VisitReported by PatientSocial/Behavior al HistoryFor diet and nutrition, patient reportshealthy diet. For fracture risk, patient reportsno history of fractures,no recent explained fracture,no sudden unexplained fractures, andno previous musculoskeletal injuries. For physical activity, patient reportsexercises on a regular basis,recent increase in physical activity, andgood physical condition.Mental Status:For depression risk, patient reportsnever feels sad, empty, or tearful,no loss of interest in activities,no significant changes in weight,no sleep disturbances or insomnia,no agitation,no loss of energy,no feelings of worthlessness or guilt,no thoughts of suicide,no history of depression, andno history of mood disorders. For orientation, patient reportsno disorientation to time,no disorientation to date, andno disorientation to place. For concentration and memory, patient reportsno decreased concentrating ability,no memory lapses or loss, anddoes not forget words. For speech/motor difficulties, patient reportsno speech difficulties,no difficulty expressing formulated concepts,no difficulty with fine manipulative tasks,no difficulty writing/copying,no slowed reaction time, anddoes not knock things over when trying to pick them up.Functional AbilityFor hearing, patient reportsno loss of hearing. For vision, patient reportsno vision problems. For activities of daily living, patient reportsable to bathe with limited or no assistance,able to contol urination and bowels,able to dress with limited or no assistance,able to feed self with limited or no assistance,able to get out of chair or bed with limited or no assistance,able to groom with limited or no assistance, andable to toilet with limited or no assistance. For instrumental activities of daily living, patient reportsable to do house work with limited or no assistance,able to grocery shop with limited or no assistance,able to manage medications with limited or no assistance,able to manage money with limited or no assistance,able to prepare meals with limited or no assistance, andable to use the phone with limited or no assistance. For falls risk assessment, patient reportsno frequent falls while walking,no fall in the past year,no fall since last visit, andno dizziness/vertigo. For home safety, patient reportsno unsafe johann hazzards,no unsafe stairs,no unsafe gas appliances,working smoke/co detectors,wears protective head gear for biking/high velocity,use of seatbelts,practicing 'safer sex',no vision or hearing loss while driving,no fire arms,has hand bars in the bathroom/shower, andgood lighting in the home.ROS as noted in the HPI Pt here for subsequent Medicare annual wellness. No falls noted, depression screening negative. No safety issues at home. No chest pain, shortness of breath, nausea or vomiting. Dermatologists appointment next week. Samir Red MD [address] [facility] [address], [place], [address], [facility] 03/06/2024 12:04:36 09/04/2024 text/html ROS as noted in the HPI Pt here for follow up. C/O joint pain in both shoulders and pain down right arm. States her body is stiff. Continues to go to gym three times a week. No chest pain, shortness of breath, nausea or vomiting. Daughter and grandson are visiting until September. bone density and mammogram rviewed Samir Red MD [address] [facility] [address], [place], [address], [facility] 09/04/2024 11:39:05 10/17/2024 text/html Pt here for ER follow up. Pt was seen in [facility] on 10/15/2024 Dx: kidney stones. Pt was experiencing sharp pains in right side, unable to sit or stand. CT scan at ER negative besides 6 small kidney stones. In office today she states pain is dull 2/10 and radiates from right side towards back. Denies fever and urination problems. No chest pain, shortness of breath, nausea or vomiting. Samir Red MD [address] [facility] [address], [place], [address], [facility] 10/17/2024 12:50:21 OBGyn Episode No OBEpisode recorded.
--- OUTSIDE RECORDS SUMMARY | 2025-01-15 12:37 | XMS_ITS ---
Author Organization [facility] Address [address] [place] [address] Care Team Providers Care Surgical Nurse Practitioner Name Role Phone Vinita Greenwood MD Unavailable Samir Red MD Primary Care Provider [phone] Fany Argueta NP Unavailable [phone]- [phone] Ayan Bryant MD Unavailable [phone] Active Problems Problem Noted Date Diagnosed Date Vitamin D deficiency 01/02/2025 Low bone mass 07/13/2023 senior living (current) use of aromatase inhibitors 06/30/2023 Postmenopausal [...] from 11/08/2021:Stage IA(pT1b, pN0(sn), cM0, G3, ER+, CO+, HER2-) - Signed by Ayan Bryant MD [...] Date:01/03/2025 Plan Provider:Fany Argueta NP 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
--- OUTSIDE RECORDS SUMMARY | 2025-01-15 12:37 | XMS_ITS | Clinical Summary ---
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 Gender Identity Not on file Sexual Orientation Not on file Last Filed Vital Signs Vital Sign Reading Time Taken Comments Blood Pressure 108/49 04/20/2021 12:15 PM JAVA SPRING DEVELOPER Pulse 72 04/20/2021 12:15 PM JAVA SPRING DEVELOPER Temperature 36.6 C (97.8 F) 04/20/2021 11:54 AM JAVA SPRING DEVELOPER Respiratory Rate 17 04/20/2021 12:15 PM JAVA SPRING DEVELOPER Oxygen Saturation 95% 04/20/2021 12:15 PM JAVA SPRING DEVELOPER Inhaled Oxygen Concentration - - Weight 63.5 kg (140 lb) 04/14/2021 2:49 PM JAVA SPRING DEVELOPER Height 160 cm (5' 3) 04/14/2021 2:49 PM JAVA SPRING DEVELOPER Body Mass Index 24.8 04/14/2021 2:49 PM JAVA SPRING DEVELOPER Plan of Treatment Health Maintenance Due Date [...] this topic Medical Devices Implanted Type Area Billet Recorder Device Identifier Shelf Expiration Date Model / Serial / Lot Breast Insurance MEDICARE [facility] Care Teams Director Of Career Services Relationship Specialty Start Date End Date Adore Currie MD [address] [place] [address] PCP - General INTERNAL MEDICINE 04/20/21
--- OUTSIDE RECORDS SUMMARY | 2025-01-15 12:37 | XMS_ITS | Encounter Summary ---
Author Organization [facility] Address [address] [facility] [place] [address] Care Team Providers Care Lumber Piler Name Role Phone Unavailable Primary Care Provider Unavailabl e Encounter Details Date Type Department Care Team (Late st Contact Info) Description 09/24/2018 Lab Requisition [facility] Care DermPath Lab [address] [facility] [place] [address] Nneka Perez MD [address] [facility] [address] [place] [address] Social History Tobacco Use Types Packs/Day Years Used Date Smoking Tobacco: Never Assessed Comments Unknown Sex and Gender Information Value Date Recorded Sex Assigned at Not on file 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 Gender Identity Not on file Sexual Orientation Not on file documented as of this encounter Plan of Treatment Not on file documented as of this encounter Procedures Procedure Name Priority Date/Time Associated Diagnosis Comments DERMATOPATH TECHNICAL REPORT Routine 09/20/2018 12:00 AM CDT documented in this encounter Results * DERMATOPATH TECHNICAL REPORT (09/20/2018 12:00 AM CDT) Case Report Dermatopathology Report Case: [id number] Authorizing Provider: Nneka Perez MD Collected: 09/20/2018 12:00 AM Pathologist: Julia Wu MD Received: 09/24/2018 10:59 AM Specimen: Skin, right upper inner arm 9 12:11 PM CDT DERMATOPATHOLOGY LABORATORY Addendum 1 At the request of the diagnosing physician, the technical component for Mib-1 was performed by [facility] Dermatopathology Laboratory. 9 12:11 PM CDT DERMATOPATHOLOGY LABORATORY Addendum electronically signed by Julia Wu MD on 09/26/2018 at 1211 CDT Clinical History R/O SCC, growing, irritated non-healing. 12:11 PM CDT DERMATOPATHOLOGY LABORATORY Gross Description Specimen A: Received is one formalin filled container labeled with the patient's name and designated right upper inner arm . The specimen consists of a shave measuring [id number]. Jar 0. [facility] Dermatopathology Laboratory performed the technical component only. [...] characteristic determined by the Dermatopathology Laboratory at [facility], directed by Dr. Brie Abel. These tests [...] DERABLES Edited Result - Final DERMATOPATHOLOGY LABORATORY [facility] - Department of Dermatology [address] [facility] 5th [place] [address], [place] [phone] documented in this encounter Visit Diagnoses Not on filedocumented in this encounter
--- OUTSIDE RECORDS SUMMARY | 2025-01-15 12:37 | XMS_ITS | Continuity of Care Document ---
Author Organization [place] [facility] Address [address] [facility] [address] [place] [address] Assessment No assessment recorded. Plan of Treatment Reminders Order Date Submit Date Provider Last Modified By Organization Details Last Modified Time Details Appointments Follow Up 15 2025 10:00A M Samir Red MD Not available Not available Not available Lab urinalysi s, complete 2024 025 [facility] (Lab), [address] [place] [address], [phone], 10/24/2024 04:03:41 glucose, fasting, QN, serum or plasma 2024 025 [facility] (Lab), [address] [place] [address], [phone], 10/24/2024 04:03:42 CMP, serum or plasma 2024 025 [facility] (Lab), [address] [place] [address], [phone], 10/24/2024 04:03:42 lipid panel, blood 2024 025 [facility] (Lab), [address] [place] [address], [address], 10/24/2024 04:03:42 GFR, estimated (eGFR), serum 2024 025 [facility] (Lab), [address] [place] [address], [address], 10/24/2024 04:03:42 Referral None recorded. Procedures None recorded. Surgeries None recorded. Imaging electroca rdiogram 2024 025 [facility], [address], [place], [address], 10/31/2024 04:04:42 Medication Orders Flomax 0.4 mg capsule 2024 025 [id number], [address], [place], [place], [phone], 10/17/2024 12:23:59 Patient TargetsNo targets recorded. Patient Instructions Encounter Date Encounter Id Patient Instructions Last Modified By Organization Details Last Modified Time 10/17/2024 [id number] dash diet: care instructions [email or web address] Not available 10/17/2024 12:23:52 low sodium diet (2,000 milligram): care instructions [email or web address] Not available 10/17/2024 12:23:52 learning about t ype 2 diabetes [email or web address] Not available 10/17/2024 12:23:52 type 2 diabetes: care instructions [email or web address] Not available 10/17/2024 12:23:52 kidney stone: ca re instructions [email or web address] Not available 10/17/2024 12:23:52 learning about d iet for kidney stone prevention [email or web address] Not available 10/17/2024 12:23:52 learning about d iet for kidney stone prevention [email or web address] Not available 10/17/2024 12:23:52 rosacea: care instructions [email or web address] Not available 10/17/2024 12:23:52 gastroesophageal reflux disease (GERD): care instructions [email or web address] Not available 10/17/2024 12:23:52 I spent a total of __36____ minutes (excluding separately reportable procedure time ) in care of this patient. [email or web address] Not available 10/17/2024 12:50:16 Reason for Referral None Reported. Results Created Date Observation Date Name Description Value Unit Range Abnormal Flag Note LastModifiedBy Organization Detail LastModifiedTime 10/18/19 25 10/15/2024 CT, abdom en + [...] sis.2. Small slidin g-type hiatal hernia . [email or web address] Not Available 09/21 12:06:18 Result Notes Documentation [...] hiatal hernia. Samir Red MD [address] [facility] [address], [place], [address], [facility] 10/17/2024 12:06:18 Problems Name Problem SNOMED Code Status Onset Date Resolution Date Notes Provider Name and Address Organization Details Recorded Time Actinic keratosis 519826699 Active 2022 Not Available [facility] 4 11:29:19 Bilateral cataracts 83469003 Active 2022 Not Available [facility] 4 11:29:19 Type 2 diabetes mellitus 97856770 Active 2022 Not Available [facility] 4 11:29:19 Gastroesop hageal reflux disease 578848746 Active 2022 Not Available [facility] 4 11:29:19 Hyperchole sterolemia 72382864 Active 2022 Not Available [facility] 4 11:29:19 Hypertensi ve disorder 12553955 Active 2022 Not Available [facility] 4 11:29:19 History of malignant neoplasm of breast 773625091 Active 2022 Not Available [facility] 4 11:29:19 Poliosis 63299846 Active 2022 Not Available [facility] 4 11:29:19 Rosacea 729176213 Active 2022 Not Available [facility] 4 11:29:19 Fibromyosi tis 89618355 Active 2022 Not Available [facility] 4 11:29:19 Osteopenia 543659489 Active 2022 Not Available [facility] 4 11:29:19 Idiopathic peripheral neuropathy 51155993 Active 2022 Not Available [facility] 4 11:29:19 Lumbar spondylosi s 054566505 Active 2022 Not Available [facility] 4 11:29:19 Pain of right shoulder joint 3296698552117 9100 Active 2022 Not Available [facility] 4 11:29:19 Preventive procedure Active 2022 Not Available [facility] 4 11:29:19 Polymyalgi a rheumatica 65132692 Active 2022 Not Available [facility] 4 11:29:19 Abnormal weight gain 910996420 Active 2023 Not Available [facility] 4 11:29:19 Chronic insomnia 845536849 Active 2023 MD Giselle Epstein [address] [place], [address] , [facility] 4 12:24:48 Kidney stone 53849749 Active 2024 MD Giselle Epstein [address], [place], [address] , [facility] 5 11:58:07 Cyst of right ovary 6310835737317 9108 Active 2024 Samir Red MD [address], [place], [address] , [facility] 5 12:20:21 Problem Notes None recorded. Procedures Surgical History Date Name Laterality Status Provider Name and Address Organization Details Recorded Time 4 extraction of cataract completed Samir Red MD [address] [facility] [address], [place], [address], [facility] 06/06/2023 11:25:29 6 extraction of cataract completed Samir Red MD [address] [facility] [address], [place], [address], [facility] 06/06/2023 11:25:49 Imaging Results None recorded. Procedure Notes None recorded. Medical Equipment None Reported. Allergies Allergen ID Allergen Name Allergen Category Reaction Reaction Severity Criticality Documentation Date Start Date Code Code System Note Provider Name and Address Organization Details Recorded Time 620 estrogens , conjugate d (INTERMEDIATE) medicatio n Not available Not available Not available 07/29/2022 4099 RxNorm React ion: rash, sever ity: Unkno wn Not Available [facility] 3 04:11:15 621 Penicilli n Not available Not available Not available Not available 07/29/2022 35423 RxNorm React ion: rash, sever ity: Unkno wn Not Available [facility] 3 04:11:15 Medications Name Sig [...] 5 160.02 cm 97.4 [degF] 24.6 kg/m2 63100.3 4 g 67 /min 18 /min 97 % 120/60 mm[Hg] [facility] 5 11:42:28 Social History None recorded. Functional [...] Time Influenza, high-dose, quadrivalent, PF 1 completed [facility] 03/09/2023 12:00:28 Influenza, high-dose, quadrivalent, PF 2 completed [facility] 03/09/2023 12:00:28 COVID-19, mRNA, LNP-S, PF, 30 mcg/0.3 mL dose 1 [facility] 12:00:28 COVID-19, mRNA, LNP-S, PF, 30 mcg/0.3 mL dose 1 [facility] 12:00:28 COVID-19, mRNA, LNP-S, PF, 30 mcg/0.3 mL dose 1 [facility] 03/09/[facility]23 12:00:28 COVID-19, mRNA, LNP-S, bivalent, PF, 30 mcg/0.3 mL dose 2 [facility] 03/09/2023 12:00:28 pneumococcal polysaccharide PPV23 0 completed Yessi Eckart [facility] 03/09/2023 12:00:28 Pneumococcal conjugate PCV 13 9 completed Yessi Eckart [facility] 03/09/2023 12:00:28 Influenza, high-dose, trivalent, PF 0 completed Yessi Eckart [facility] 03/09/2023 12:00:28 Influenza, high-dose, trivalent, PF 9 completed Yessi Eckart [facility] 03/09/2023 12:00:28 zoster recombinant 3 [facility] 03/09/2023 12:00:28 Influenza, adjuvanted, quadrivalent, PF 3 completed Samir Red MD [address] [address], [place], [address], [facility] 03/09/2023 12:20:13 RSV, recombinant, protein subunit RSVpreF, adjuvant reconstituted, 0.5 mL, PF 3 completed [facility] 03/09/2023 12:00:28 zoster recombinant 4 [facility] 06/06/2023 11:12:12 Influenza, high-dose, trivalent, PF 4 completed Samir Red MD [address], [place], [address], [facility] 03/06/2024 11:57:03 Past Encounters Encounter ID Performer Location Encounter Start Date Encounter Closed Date Diagnosis/Indication Diagnosis SNOMED-CT Code Diagnosis ICD10 Code Diagnosis IMO Codes Diagnosis Note [id number] Samir Red MD [facility] [address] [facility] [place] [address] 10/17/2024 11:35:33 10/17/2024 12:25:18 Transition of care from emergency department to self-care [id number] 14368 Z78.9 [id number] emergency note reviewedre viewed test results and reviewed with the patientsym ptoms improving and continue with current plan Kidney stone 60587263 N2 0.0 95914 multiple stones 6 in right upto 6 mm size and 6 in left upto 2 mmdrink plenty of wateradd flomax 0.4 mg dailycut the cheesemult iple ct scans in [place] past with bilateral nephrolith iasishx of left obstructiv e uropathy in 2011 needing stent placement. discussed all diet to prevent kidney stones Type 2 ying betes mellitus 18225356 E11.9 On metformin 500 mg twice a dayA1 C 5.7 : 5.9 Hypertensive disorder 38 847732 I10 On triamteren e hydrochlor othiazideb p optimal nowcbc, cmp 07/14 normal Hypercholesterolemia 136 02805 E78.00 On atorvastat tn5813 LDL 192Repeat 08/12: 99Switch atorvastat in to every other day and monitor lipid profile06/21 4: LDL 137. atorvastat in every other day: will switch to once daily Chronic insomnia 3899320 04 F51.04 tried otcongoing issuediscu ssed optionstra zodone: palpitatio ns.tried melatonina dd ambien. Polymyalgi a rheumatica 30698405 M35.3 Meloxicam aggravated the pain and hence stoppedCK level came back normalShe had stopped her anastrozol eWill switch her Lipitor to every otherr day and see the responseSt atin-induc ed myalgia is a possibilit y as wellCymbal ta is an option however deferred at this visitesr/c rodger valdez.cervi jolene spine: mild arthritssh oulder xray : mild arthritisp olymyalgia rheumatica possibilit ystarted on prednisone 10 mg daily adn now down to 1 mg daily.feel s great stopped prednisone now and no further flares Rosacea 423866051 L71.9 On metronidaz ole gel local applicatio n Poliosis 49248124 L67.1 History of polio as a child History of malignant neoplasm of breast 535741731 Z85.3 Initially diagnosed 2012 status post mastectomy Reappearan ce 2021: Stattus post lumpectomy finished radiation treatmentO n anastrozol eSees Dr. Segura ed tamoxifen in the past after mastectomy which caused severe vasomotor symptoms as well Gastroesop hageal reflux disease 637335945 K21.9 Stable Osteopenia 785811676 M85 .89 Osteopenia on DEXA scan 08/12: Low bone Sue calcium and vitamin D supplement ationrepea t bone density 08/14: lowered with low bone mass.on zometa but last infusion 4recl ast provided 06/2023 and was transition ed to zometashe will reach out to Fany Argueta for zometa infusion which will be done q 6 months Idiopathic peripheral neuropathy 18954788 G60.9 Suspected due to chemothera py Lumbar spondylosis 32237 0009 M47.896 3 mm anterolist hesis of L5 on S1 and S2 and 2 mm anterolist hesis of L4 on D8Oktkehgc loss of IVD space height at L012 L5-B5Fbzmk ate to severe facet Osteoarthr itisHistor y of horse riding and injuries related to it in the past Preventive procedure 169 262771 Z29.9 colonoscop y 04/20/2021 dr. Jacobs. some polyps in there.mamm ogram 09/07/2021 06/28/2022: negative. 06/2023 negative per patient , 06/2024: normalbone density: july 29 2022: low bone mass : 07/2024: low bone mass (lowered)f tanya: ov id: 4 shotspneum onia: pcv13 2019; ppv23: 2020RSV: 12/2022zos ter: completed Cyst of right ovary 1223 187585 0035895 N83.201 616644 2.5 cm right cyst.chron ic and stable in size Health Concerns Section Related Observation LastModified by Organization Detai ls LastModified Time None Recorded Concern Status LastModified by Organization Details LastModified Time None Recorded Payers Encounter Date Sequence Insurance Name Policy Number Policy Alas Covered Member ID Alas Member ID Guarantor Name 10/17/2024 1 [place]MED[place]ARE) Angella Tejada [id number] Angella Tejada 10/17/2024 2 [employer] SU[employer]LE[employer]AL - [employer] (MEDICARE SUPPLEMENT) Angella Tejada [id number] Angella Tejada Notes Date Note Type Note Provider Name and Address Organization Details Recorded Time 10/17/2024 text/html Pt here for ER follow up. Pt was seen in [place] [facility] on 10/15/2024 Dx: kidney stones. Pt [...] or vomiting. Samir Red MD [address], [place], [address], [facility] 10/17/2024 12:50:21 OBGyn Episode No OBEpisode recorded.
--- OUTSIDE RECORDS SUMMARY | 2025-01-15 12:37 | XMS_ITS | Encounter Summary ---
Author Organization [facility] Address [address] [place] [address] Care Team Providers Care Manager Merchandising Name Role Phone Unavailable Primary Care Provider Unavailabl e Encounter Details Date Type Department Care Team (Late st Contact Info) Description 02/27/2018 Lab Requisition [facility] [address] [facility] [place] [address] Nneka Perez MD [address] 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 Gender Identity Not on file Sexual Orientation Not on file documented as of this encounter Plan of Treatment Not on file documented as of this encounter Procedures Procedure Name Priority Date/Time Associated Diagnosis Comments DERMATOPATH TECHNICAL REPORT Routine 02/26/2018 12:00 AM MEDICAL LAB DIRECTOR documented in this encounter Results * DERMATOPATH TECHNICAL REPORT (02/26/2018 12:00 AM MEDICAL LAB DIRECTOR) Case Report Dermatopathology Report Case: [id number] Authorizing Provider: Nneka Perez MD Collected: 02/26/2018 12:00 AM Pathologist: Jay Abel MD Received: 02/27/2018 06:56 AM Specimen: Skin, right upper arm 9 11:14 AM MEDICAL LAB DIRECTOR DERMATOPATHOLOGY LABORATORY Clinical History R/O ISK vs SCC-KA vs other. Irritated, non-healing, painful. 9 11:14 AM MEDICAL LAB DIRECTOR DERMATOPATHOLOGY LABORATORY Gross Description Specimen A: Received is one formalin filled container labeled with the patient's name and designated right upper arm. The specimen consists of a shave measuring [id number], bisected. Jar 0. [facility] Dermatopathology Laboratory performed the technical component only. 11:14 AM [facility] DERMATOPATHOLOGY LABORATORY Embedded Images 11:14 AM [facility] DERMATOPATHOLOGY LABORATORY DISCLAIMER An external and internal positive and negative controls are appropriate for the histochemical, immunohistochemical and immunofluorescence stain(s) in this case (if any), except where stated explicitly. The performance characteristics of the stain(s) cited in this report were developed and its performance characteristic determined by the Dermatopathology Laboratory at [facility]. These tests need not be, and therefore are not, approved by the [place] Food and Drug Administration. The tests are used for clinical purposes. 11:14 AM [facility] DERMATOPATHOLOGY LABORATORY at [address]4 MEDICAL LAB DIRECTOR Pathology/Cytolog y TISSUE SPECIMEN FROM SKIN / Unknown 02/26/2018 02/27/2018 6:56 AM MEDICAL LAB DIRECTOR us Nneka Perez MD LAB - PATHOLOGY/CYTOLOGY OR DERABLES Final Result DERMATOPATHOLOGY LABORATORY [facility] - Department of Dermatology [address] [facility] [address] [facility] 5th [place] [address], [facility] [phone] documented in this encounter Visit Diagnoses Not on filedocumented in this encounter
--- OUTSIDE RECORDS SUMMARY | 2025-01-15 12:37 | XMS_ITS | Encounter Summary ---
Author Organization [facility] Address [address] [facility] [place] [address] Care Team Providers Care Cattle Dipper Name Role Phone Unavailable Primary Care Provider Unavailabl e Encounter Details Date Type Department Care Team (Late st Contact Info) Description 11/15/2018 Lab Requisition [facility] DermPath Lab [address] [facility], [facility] [place] [address] Nneka Perez MD [address] [facility] [address] [place] [address] Social History Tobacco Use Types Packs/Day Years Used Date Smoking Tobacco: Never Assessed Comments Unknown Sex and Gender Information Value Date Recorded Sex Assigned at Not on file 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 Gender Identity Not on file Sexual Orientation Not on file documented as of this encounter Plan of Treatment Not on file documented as of this encounter Procedures Procedure Name Priority Date/Time Associated Diagnosis Comments DERMATOPATHOLOGY Routine 11/14/2018 12:0 0 AM CDT documented in this encounter Results * DERMATOPATHOLOGY (11/14/2018 12:00 AM CDT) Case Report Dermatopathology Report Case: [id number] Authorizing Provider: Nneka Perez MD Collected: 11/14/2018 12:00 AM Ordering Location: [facility] Care DermPath Lab Received: [...] of a non-oriented ellipse of skin measuring [id number]. The epidermal surface consists of a centrally [...] characteristic determined by the Dermatopathology Laboratory at [facility], directed by Dr. Brie Abel. These tests need not be, and therefore are not, approved by the [place] Food and Drug Administration. The tests are used for clinical purposes. Billing Codes Specimen Charges Stain Charges 19246 1 12:37 PM CDT DERMATOPATHOLOGY LABORATORY Embedded Images 12:37 PM CDT DERMATOPATHOLOGY LABORATORY Pathology/Cytolog y TISSUE SPECIMEN FROM SKIN / Unknown 11/14/2018 11/15/2018 6:37 AM CDT Nneka Perez MD LAB - PATHOLOGY/CYTOLOGY OR DERABLES Final Result DERMATOPATHOLOGY LABORATORY [facility] - Department of Dermatology [address] [place] [address] 5th Floor Lab [address] [phone] documented in this encounter Visit Diagnoses Not on filedocumented in this encounter
--- OUTSIDE RECORDS SUMMARY | 2025-01-15 12:38 | XMS_ITS | Clinical Summary ---
Author Organization [facility] Address [address] [facility] [place] [address] Care Team Providers Care Record Tester Name Role Phone Unavailable Primary Care Provider Unavailabl e Source Comments [facility],non-owned Affiliates and Associated Physician Practices is amultiple site organization consisting of ambulatory clinics and hospital sitesin [place], [place], [place] and [place]. This disclosure is being madepursuant to the Care Everywhere program and may not contain all information available regarding this patient. Last updated 17.[facility] [employer] Allergies No known active allergies Immunizations Immunization Administration Dates Next Due INFLUENZA VACCINE, HIGH-DOSE , QUADR. 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
[2025-01-15] MEDS: ACETAMINOPHEN 325 MG TABLET 650 MG PO (13:25)
[2025-01-15] MEDS: METOCLOPRAMIDE HCL INJ 10 MG/2 ML VIAL IM (13:26)
[2025-01-15 13:31] VITALS: BP 126/64; PULSE 71; RESP 18; O2SAT 97
--- NOTE | 2025-01-15 15:02 | ED.HEATRA ---
HPI - Head Injury General Chief complaint: Head Injury Stated complaint: head injury 01/10, headache since Time Seen by Provider: 01/15/25 12:05 History of Present Illness HPI Narrative: Patient accidentally slammed the trunk of her car on to her head 3 days ago, and then when she was home putting away the groceries, accidentally bumped her head on the cabinet. Since then she has had headaches, worst last night where she was having trouble sleeping, tried some Tylenol without much improvement. No nausea vomiting. No focal numbness or weakness, does sometimes feel little bit off balance/dizzy Related Data Home Medications ?Medication ?Instructions ?Recorded ?Confirmed ?Last Taken ?Type atorvastatin 10 mg tablet 10 mg PO DAILY 03/25/21 Unknown History metformin 500 mg tablet 500 mg PO BID 03/25/21 Unknown History triamterene 37.5 1 cap PO DAILY 03/25/21 Unknown History mg-hydrochlorothiazide 25 mg capsule Allergies Allergy/AdvReac Type Severity Reaction Status Date / Time tree nut Allergy Unknown Hives Verified 10/15/24 16:43 Pork Allergy Mild Hives Uncoded 10/15/24 16:43 Review of Systems Review of Systems: All systems reviewed & are unremarkable except as noted in HPI and below PMFSH Past Medical History Medical History Breast cancer Kidney stones Pneumonia Surgical History Surgical History History of mastectomy Left Social History Social History Smoking status: Former smoker Gender identity (if verbalized by the patient): Female Exam Narrative: EXAMINATION OF ORGAN SYSTEMS/BODY AREAS: Constitutional: Vital signs per nursing GENERAL:[No acute distress, non-toxic appearing.] HEAD: Normal with no signs of head trauma. EYES: EOMI, conjunctiva normal ENT: Hearing grossly intact LUNGS: Nonlabored breathing. HEART: [Regular rate and rhythm] ABD: [Soft], [nontender to palpation] EXT: Normal range of motion SKIN: [No rashes or lesions.] NEURO: [Alert and oriented x 3. No gross focal sensory or strength deficits.] Ambulating with normal steady gait. PSYCH: Normal affect, very pleasant Course Vital Signs Vital signs: Vital Signs Temperature 97.1 F L 01/15/25 11:45 Pulse Rate 69 01/15/25 11:45 Respiratory Rate 20 01/15/25 11:45 Blood Pressure 125/64 01/15/25 11:45 Pulse Oximetry 98 01/15/25 11:45 Oxygen Delivery Room Air 01/15/25 11:45 Temperature 97.1 F L 01/15/25 11:45 Pulse Rate 71 01/15/25 13:31 Respiratory Rate 18 01/15/25 13:31 Blood Pressure 126/64 01/15/25 13:31 Pulse Oximetry 97 01/15/25 13:31 Oxygen Delivery Room Air 01/15/25 11:45 MDM - Head Injury MDM Narrative Medical decision making narrative: Patient presenting here with head injury few days ago, with persistent headaches since then. She is well-appearing here, incredibly pleasant, normal neurologic exam. CT brain, C-spine thankfully unremarkable, no acute abnormalities. Suspect possibly concussion or postconcussive headache, will give some pain medication here, she is agreeable to follow-up with her primary care doctor with return precautions. Discharge Plan Discharge Clinical Impression: Closed head injury, Concussion without loss of consciousness Patient Disposition: Home Condition: Stable Instructions: Concussion (ED), Post Concussion Syndrome (ED) Additional Instructions: Please follow up with your doctor; you can always return to the ER for any furhter issues. Patient Language: Setswana Prescriptions: No Action mupirocin 2 % ointment 1 applic topical BID Qty: 22 0RF methylprednisolone [Medrol (Tomas)] 4 mg tablets,dose pack 4 mg PO DAILY Qty: 21 0RF diclofenac potassium 50 mg tablet 50 mg PO BID PRN (Reason: pain) Qty: 14 0RF metformin 500 mg Tablet 500 mg PO BID atorvastatin 10 mg Tablet 10 mg PO DAILY triamterene-hydrochlorothiazid 37.5-25 mg Capsule 1 cap PO DAILY amoxicillin-pot clavulanate 875-125 mg tablet 1 tablet PO Q12H Qty: 20 0RF hydrocodone-acetaminophen 5-325 mg tablet 1 tablet PO Q6-8H PRN (Reason: pain) 3 Days Qty: 10 0RF ondansetron 4 mg tablet,disintegrating 4 mg PO Q6H PRN (Reason: nausea and vomiting) Qty: 20 0RF hydrocodone-acetaminophen 5-325 mg tablet 1 tablet PO Q6-8H PRN (Reason: pain) Qty: 3 0RF dicyclomine 10 mg capsule 10 mg PO TID Qty: 10 0RF dicyclomine 20 mg tablet 20 mg PO TID Qty: 30 0RF Follow-up/Referrals: Samir Red MD [Primary Care Provider, Hospitalist]
== END 2025-01-15 13:32 | disposition home or self-care (01) ==
PROVIDERS: Emergency Provider Emergency Medicine; PCP Internal Medicine
DX: S06.0X0A Concussion without loss of consciousness, initial encounter (principal); Z87.442 Personal history of urinary calculi; Z85.3 Personal history of malignant neoplasm of breast; Z87.01 Personal history of pneumonia (recurrent); Z87.891 Personal history of nicotine dependence; Z90.12 Acquired absence of left breast and nipple; W22.8XXA Striking against or struck by other objects, initial encounter
CPT/HCPCS: 70450; 72125; 96372; 99284; A9270; J2765